=== PATIENT | male | born 1985 | race Caucasian/White ===

== ENCOUNTER 2018-08-20 10:55 | Emergency (ER) | payer OTHER ==
--- OUTSIDE RECORDS SUMMARY | 2018-08-20 11:05 | XMS REPORT | Continuity of Care Document ---
:1985 Author Organization Interface Problems Problem Status Onset Classification Date Comments Source Date Reported SUICIDAL Active 08/21/19 [facility] 18 [place] Discharge 10/03/19 10/06/2016 Diagnosis: [address] [place] Ureterolithiasis Discharge 10/03/19 10/06/2016 Diagnosis: Suicidal [place] ideation SUICIDAL IDEATION Active 10/02/19 [address] [place] SUICIDAL IDEATION Active 10/02/19 [address] [place] MEDIASTINAL ABSCESS Active 02/20/[address] MULTIPLE THORACIC Active 02/11/[address] OD Active 08/04/[address] Adult ADHD Active Problem 08/25/2017 [facility] Anxiety Active Problem 08/25/2017 [facility] Bipolar Active Problem 08/25/2017 [facility] Depression Active Problem 08/25/2017 [facility] Schizoaffective Active Problem 08/25/2017 [facility] Seizure disorder Active Problem 08/25/2017 [facility] Adult ADHD Active Problem 10/06/2016 [facility], [place] Anxiety Active Problem 10/06/2016 [facility], [place] Bipolar Active Problem 10/06/2016 [facility], [place] Depression Active Problem 10/06/2016 [facility], [place] Schizoaffective Active Problem 10/06/2016 [facility], [place] Seizure disorder Active Problem 10/06/2016 [facility], [place] Final: Poisoning by 08/17/2014 [facility] Psychodysleptics Medical [hallucinogens] Center Final: 08/17/2014 [facility] Schizoaffective Medical Disorder, [place] Unspecified Final: Cannabis 08/17/2014 [facility] Abuse, Unspecified Medical Use Center Final: Attention 08/17/2014 [facility] 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 Final: Poisoning by 08/17/2014 [facility] Amphetamines Medical Center Final: Suicide and 08/17/2014 [facility] Self-Inflicted Medical Poisoning by Center Tranquilizers and Other Psychotropic Agents Final: Need for 08/17/2014 [facility] Prophylactic Medical Vaccination and Center Inoculation Against Influenza Final: Epilepsy, 08/17/2014 [facility] Unspecified, Medical without Mention of Center Intractable Epilepsy Final: Cocaine 08/17/2014 [facility] Abuse, Unspecified Medical Use Center Final: Open Wound 08/17/2014 [facility] of Wrist, without Medical Mention of Center Complication DRUG ABUSE Active [facility] NEC-UNSPEC Medical Center ABSCESS OF Active [facility] MEDIASTINUM [facility] Center [facility] Medications Medication Details Route Status Patient Ordering Order Source Instructions Provider Date tramadol 50 mg=1 tab, Active hydrochloride 50 PO, Q6H, PRN 2016 [place] MG Oral Tablet pain, No [Ultram] driving while under the influence of this medication, X 3 day, # 12 tab, 0 Refill(s) Tamsulosin 0.4 mg=1 cap, Active hydrochloride 0.4 PO, Daily, # 2017 [place] [facility] Oral Capsule 30 cap, 0 [Flomax] Refill(s) Sodium Chloride 1,000 mL, Inactive 0.154 MEQ/ML Infuse Over: 1 2016 [facility] Injectable hr, Route: IV, Solution ONCE, Priority: STAT, Dosing Weight 79.545 kg, Start date: 10/03/16 2:16:00 [employer], Duration: 1 doses or times, Stop date: 10/03/16 2:16:00 [employer] Sodium Chloride 1,000 mL, Inactive 0.154 MEQ/ML Infuse Over: 2016 [facility] Injectable hr, Route: IV, Solution ONCE, Priority: STAT, Dosing Weight 79.545 kg, Start date: 10/02/16 23:22:00 [employer] SALES MANAGER, Duration: 1 doses or times, Stop date: 10/02/16 23:22:00 [employer] SALES MANAGER Motrin 600 mg, 1.5 Inactive tab, Route: 2016 [place] PO, Drug form: TAB, ONCE, Dosing Weight 79.545, kg, Priority: STAT, Start date: 10/02/16 22:09:00 [employer] SALES MANAGER, Stop date: 10/02/16 22:09:00 CSTNotes: (Same as: Motrin) "Do Not Crush" Give with food. tramadol 50 mg=1 tab, Active [place] hydrochloride 50 PO, Q6H, PRN 2015 Medical MG Oral Tablet Pain, X 10 Center day, # 40 tab, 0 Refill(s) doxycycline 100 mg=1 tab, Active [place] hyclate 100 mg PO, Q12H, X 28 2014 Medical oral tablet day, # 56 tab, Center 0 Refill(s) thiamine 100 mg 100 mg=1 tab, Active [facility] oral tablet PO, Daily, X 2014 Medical 30 day, # 30 Center tab, 0 Refill(s) senna 8.6 mg oral 8.6 mg=1 tab, Active [place] tablet PO, Daily, X 2015 Medical 10 day, # 10 Center tab, 0 Refill(s) Multiple Vitamins 1 tab, PO, Active [facility] oral tablet Daily, # 30 2015 Medical tab, 0 Center Refill(s) Folic Acid 1 MG 1 mg=1 tab, Active [facility] Oral Tablet PO, Daily, # 2015 Medical 30 tab, 0 Center Refill(s) docusate sodium 100 mg=1 cap, Active [place] 100 mg oral PO, Daily, # 2015 Medical capsule 30 cap, 0 Center Refill(s) clonazePAM 0.5 mg 0.5 mg=1 tab, Active [place] oral tablet PO, Q12H, PRN 2015 Medical Anxiety, # 14 Center tab, 0 Refill(s) Clonazepam 0.5 mg, 1 tab, No Longer [place] Route: PO, Active 2014 Medical Drug form: [place] TAB, Q12H, Dosing Weight 74.7, kg, PRN Anxiety, Start date: 03/09/15 17:29:00, Stop date: 04/08/15 17:28:00Notes: (Same As: KlonoPIN) Clonazepam 0.5 mg, 1 tab, No Longer [place] Route: PO, Active 2014 Medical Drug form: Center TAB, Q12H, Dosing Weight 74.7, kg, Start date: 03/03/15 9:00:00, Stop date: 04/01/15 21:00:00Notes: (Same As: KlonoPIN) Ibuprofen 600 mg, 3 tab, No Longer [place] Route: PO, Active 2014 Medical Drug form: Center TAB, Q6H, Dosing Weight 75, kg, PRN Pain Score 4-6, Start date: 02/26/15 12:10:00, Duration: 30 day, Stop date: 03/28/15 12:09:00Notes: (Same as: Advil) Give with food. KlonoPIN 2 mg, 4 tab, Inactive [place] Route: PO, 2014 Medical Drug form: [place] TAB, ONCE, Start date: 02/21/15 22:17:00, Stop date: 02/21/15 22:17:00Notes: (Same As: KlonoPIN) Acetaminophen 325 1 tab, Route: No Longer [facility] MG / Hydrocodone PO, Drug Form: Active 2014 Medical Bitartrate 10 MG TAB, Dosing Center Oral Tablet [[place] Weight 74.7, 10/325] kg, Q6H, PRN Pain Score 7-10, Start date: 02/21/15 11:01:00, Stop date: 03/23/15 11:00:00Notes: Do not exceed 4gm/day of acetaminophen. (Same as: [place] 325/10) Bisacodyl 10 mg, 1 supp, No Longer [facility] Route: [place], Active 2014 Medical Drug form: Center SUPP, Daily, Dosing Weight 74.7, kg, PRN Constipation, Start date: 02/21/15 11:01:00, Duration: 30 day, Stop date: 03/23/15 11:00:00Notes: (Same As: Dulcolax, Bisco-Lax) Thiamine 100 mg, 1 tab, No Longer [facility] Route: PO, Active 2014 Medical Drug form: Center TAB, Daily, Dosing Weight 74.7, kg, Start date: 02/21/15 9:00:00, Duration: 30 day, Stop date: 03/22/15 9:00:00Notes: (Same As: Vitamin B1) senna 8.6 mg oral 8.6 mg, 1 tab, No Longer [facility] tablet Route: PO, Active 2014 Medical Drug Form: Center TAB, Dosing Weight 74.7, kg, Daily, Start date: 02/21/15 9:00:00, Duration: 30 day, Stop date: 03/22/15 9:00:00Notes: (Same as: Senokot) multivitamin 1 tab, Route: No Longer [place] PO, Drug Form: Active 2014 Medical TAB, Dosing Center Weight 74.7, kg, Daily, Start date: 02/21/15 9:00:00, Duration: 30 day, Stop date: 03/22/15 9:00:00Notes: (Same as:Thera) Folic Acid 1 mg, 1 tab, No Longer [place] Route: PO, Active 2014 Medical Drug form: Center TAB, Daily, Dosing Weight 74.7, kg, Start date: 02/21/15 9:00:00, Duration: 30 day, Stop date: 03/22/15 9:00:00Notes: (Same as: Folvite) Clonazepam 1 mg, 2 tab, No Longer [facility] Route: PO, Active 2014 Medical Drug form: Center TAB, Q8H, Dosing Weight 74.7, kg, Start date: 02/21/15 9:00:00, Stop date: 03/22/15 21:00:00Notes: (Same As: KlonoPIN) Trazodone 100 mg, 1 tab, No Longer [facility] Hydrochloride 100 Route: PO, Active 2014 Medical MG Oral Tablet Drug form: Center TAB, Bedtime, Dosing Weight 74.7, kg, Start date: 02/20/15 21:00:00, Duration: 30 day, Stop date: 03/21/15 21:00:00Notes: (Same As: Desyrel) Cefazolin 2 gm, Route: No Longer [place] IVPB, ABXQ8H, Active 2014 Medical Dosing Weight Center 74.7, kg, Start date: 02/20/15 18:00:00, Duration: 30 day, Stop date: 03/22/15 5:00:00Notes: (Same As: Ancef Kefzol) Cefazolin FOR IV SET ONLY MEDICATION WASTE Product Size: 1000 mg Product Wasted: ___ mg acetaminophen 325 650 mg, 2 tab, No Longer [place] mg oral tablet Route: PO, Active 2014 Medical Drug form: Center TAB, Q6H, Dosing Weight 74.7, kg, PRN For Temp > 101 F, Start date: 02/20/15 17:19:00, Duration: 30 day, Stop date: 03/22/15 17:18:00Notes: (Same as: Tylenol) Acetaminophen 325 1 tab, Route: No Longer [place] MG / Hydrocodone PO, Drug Form: Active 2014 Medical Bitartrate 10 MG TAB, Dosing Center Oral Tablet [[place] Weight 74.7, 10/325] kg, Q4H, PRN Pain Score 1-3, Start date: 02/20/15 17:19:00, Duration: 30 day, Stop date: 03/22/15 17:18:00Notes: (Same as: [place] 325/10) Docusate 100 mg, 1 cap, No Longer [place] Route: PO, Active 2014 Medical Drug form: [place] CAP, Q12H, Dosing Weight 74.7, kg, Start date: 02/20/15 17:00:00, Stop date: 03/22/15 9:00:00Notes: (Same as: Colace) Ibuprofen 600 mg, 1 tab, Inactive [place] Route: PO, 2014 Medical Drug form: Center TAB, Q6H, Dosing Weight 74.7, kg, PRN Pain Score 1-3, Priority: NOW, Start date: 02/20/15 15:40:00, Duration: 30 day, Stop date: 03/22/15 15:39:00Notes: (Same as: Motrin) "Do Not Crush" Take with food. Ondansetron 4 mg, 2 mL, No Longer [place] Route: IVP, Active 2014 Medical Drug form: Center INJ, Q8H, Dosing Weight 74.7, kg, PRN Nausea & Vomiting, Start date: 02/20/15 14:39:00, Duration: 30 day, Stop date: 03/22/15 14:38:00Notes: (Same as: Zofran) MEDICATION WASTE Product Size: 4 mg Product Wasted: ___ mg Bisacodyl 10 mg, 2 tab, No Longer [place] Route: [place], Active 2014 Medical Drug form: [place] ECTAB, PRN, Dosing Weight 74.7, kg, PRN Constipation, Start date: 02/20/15 14:39:00, Duration: 30 day, Stop date: 03/22/15 14:38:00Notes: (Same As: Dulcolax, Correctol) (Do Not Crush) Milk of Magnesia 30 mL, Route: No Longer [facility] PO, Drug Form: Active 2015 Medical SUSP, Dosing Center Weight 74.7, kg, Daily, PRN Constipation, Start date: 02/20/15 14:39:00, Duration: 30 day, Stop date: 03/22/15 14:38:00Notes: (Same as: Milk of Magnesia, MOM) thiamine 100 mg 100 mg=1 tab, On Hold [facility] oral tablet PO, Daily, 0 2014 Medical Refill(s) Center senna 8.6 mg oral 8.6 mg=1 tab, On Hold [facility] tablet PO, Daily, 0 2014 Medical Refill(s) Center multivitamin 1 tab, PO, On Hold [facility] Daily, 0 2014 Medical Refill(s) Center Folic Acid 1 MG 1 mg=1 tab, On Hold [facility] Oral Tablet PO, Daily, 0 2014 Medical Refill(s) Center docusate sodium 100 mg=1 cap, On Hold [facility] 100 mg oral PO, Daily, 0 2014 Medical capsule Refill(s) Center ceFAZolin 1 g/50 2 fe=253 mL, On Hold [facility] mL intravenous IVPB, ABXQ8H, 2015 Medical solution 0 Refill(s) Center bisacodyl 10 mg 10 mg=1 supp, On Hold [facility] rectal suppository [place], Daily, PRN 2015 Medical Constipation, Center 0 Refill(s) acetaminophen 325 650 mg=2 tab, On Hold [facility] mg oral tablet PO, Q6H, PRN 2015 Medical For Temp > 101 Center F, 0 Refill(s) Acetaminophen 325 2 tab, PO, On Hold [facility] MG / Hydrocodone Q6H, PRN Pain 2015 Medical Bitartrate 10 MG Score 7-10, 0 Center Oral Tablet [[place] Refill(s) 10/325] clonazePAM 2 mg 2 mg=1 tab, On Hold [place] oral tablet PO, TID, 0 2014 Medical Refill(s) Center Trazodone 100 mg=1 tab, On Hold [place] Hydrochloride 100 PO, Bedtime, 0 2014 Medical MG Oral Tablet Refill(s) Center Acetaminophen 325 2 tab, Route: No Longer [facility] MG / Hydrocodone PO, Drug Form: Active 2014 Medical Bitartrate 10 MG TAB, Dosing Center Oral Tablet [[place] Weight 74.7, 10/325] kg, Q6H, PRN Pain Score 7-10, Start date: 02/19/15 18:24:00, Duration: 30 day, Stop date: 03/21/15 18:23:00Notes: Do not exceed 4gm/day of acetaminophen. (Same as: [place] 325/10) Dilaudid 0.5 mg, 0.25 Inactive [place] mL, Route: 2014 Medical IVP, Drug Center form: INJ, ONCE, Dosing Weight 74.7, kg, Priority: STAT, Start date: 02/19/15 18:20:00, Stop date: 02/19/15 18:20:00Notes: Same as: Dilaudid Acetaminophen 325 1 tab, Route: Inactive [facility] MG / Hydrocodone PO, Drug Form: 2014 Medical Bitartrate 5 MG TAB, Dosing Center Oral Tablet [[place] Weight 74.7, 5/325] kg, Q6H, PRN Pain Score 1-3, Start date: 02/19/15 17:54:00, Duration: 30 day, Stop date: 03/21/15 17:53:00Notes: (Same as: [place] 325/5) Do not exceed 4gm/day of acetaminophen. Acetaminophen 325 1 tab, Route: No Longer [facility] MG / Hydrocodone PO, Drug Form: Active 2014 Medical Bitartrate 7.5 MG TAB, Dosing Center Oral Tablet [[place] Weight 74.7, 7.5/325] kg, Q4H, PRN Pain Score 4-6, Start date: 02/17/15 10:30:00, Duration: 30 day, Stop date: 03/19/15 10:29:00Notes: Same as [place] 325-7.5mg Do not exceed 4gm/day of acetaminophen. Dilaudid 0.5 mg, 0.25 No Longer [place] mL, Route: IV, Active 2014 Medical Drug form: [place] INJ, Q3H, Dosing Weight 74.7, kg, PRN Pain Score 7-10, Start date: 02/17/15 10:25:00, Duration: 30 day, Stop date: 03/19/15 10:24:00Notes: Same as: Dilaudid Simethicone 80 mg, 1 tab, No Longer [place] Route: PO, Active 2014 Medical Drug form: [place] CHEWTAB, Q6H, Dosing Weight 74.7, kg, Start date: 02/16/15 12:00:00, Duration: 30 day, Stop date: 03/18/15 6:00:00Notes: (Same as: Leanalicon) Dilaudid 1 mg, 0.5 mL, Inactive [place] Route: IVP, 2014 Medical Drug form: [place] INJ, ONCE, Dosing Weight 74.7, kg, Priority: STAT, Start date: 02/15/15 18:42:00, Stop date: 02/15/15 18:42:00Notes: Same as: Dilaudid Hydromorphone 15 mg, 30 mL, No Longer [place] Route: IV, Active 2014 [facility] Loading Dose: 0.4mg, [employer] OFFICER Dose: 0.2 mg, [employer] OFFICER Lockout: 10 minutes, Continuous Basal Rate: 0 mg, 4 Hour Limit (In MG): 6, Drug Form: INJ, Continuous, Start date: 02/15/15 18:30:00, Duration: 30 day, Stop date: 03/17/15 18:...Notes: (Same as: Dilaudid) conc=0.5 mg/ml Hydromorphone [employer]ER Dose: ;Delay: ;Basal: Naloxone 0.04 mg, 0.1 No Longer [place] mL, Route: Active 2014 [facility] IVP, Drug Center form: INJ, Q2MIN, Dosing Weight 74.7, kg, PRN Narcotic Reversal, Start date: 02/15/15 18:24:00, Duration: 30 day, Stop date: 03/17/15 18:23:00Notes: Same as Narcan Saline Flush 0.9% 10 mL, Route: No Longer [facility] IVP, Drug Active 2014 Medical Form: INJ, Center Dosing Weight 74.7, kg, Q8H, Start date: 02/15/15 16:00:00, Duration: 30 day, Stop date: 03/17/15 8:00:00Notes: (Same as: BD Posiflush) Cefazolin 2 gm, 100 mL, No Longer [facility] Route: IVPB, Active 2014 Medical Drug form: [place] INJ, ABXQ8H, Dosing Weight 74.7, kg, Start date: 02/15/15 13:00:00, Duration: 30 day, Stop date: 03/17/15 5:00:00Notes: Same as: Ancef lidocaine 1% 5 mL, Route: Inactive [facility] INTRADERM, 2014 Medical Drug Form: [place] INJ, Dosing Weight 74.7, kg, ONCALL, Start date: 02/15/15 10:00:00, Duration: 1 day, Stop date: 02/16/15 9:59:00Notes: (Same as: Xylocaine) Sodium Chloride 5 mL, Route: No Longer [facility] 0.154 MEQ/ML INTRADERM, Active 2014 Medical Injectable Drug Form: [place] Solution INJ, Dosing Weight 74.7, kg, ONCALL, Start date: 02/15/15 10:00:00, Duration: 1 day, Stop date: 02/16/15 9:59:00Notes: (Same as: BD Posiflush) Dilaudid 0.2 mg, 0.1 No Longer [facility] mL, Route: IV, Active 2014 Medical Drug form: [place] INJ, Q4H, Dosing Weight 74.7, kg, PRN Pain Score 7-10, Start date: 02/14/15 15:09:00, Duration: 30 day, Stop date: 03/16/15 15:08:00Notes: Same as: Dilaudid lidocaine 1% 5 mL, Route: No Longer [facility] INTRADERM, Active 2014 Medical Drug Form: Center INJ, Dosing Weight 74.7, kg, ONCALL, Start date: 02/14/15 15:00:00, Duration: 30 day, Stop date: 03/16/15 14:59:00Notes: (Same as: Xylocaine) Trazodone 100 mg, 1 tab, No Longer [place] Hydrochloride 100 Route: PO, Active 2014 Medical MG Oral Tablet Drug form: Center TAB, Bedtime, Dosing Weight 74.7, kg, Start date: 02/13/15 21:00:00, Duration: 30 day, Stop date: 03/14/15 21:00:00Notes: (Same As: Desyrel) Vancomycin 1.5 gm, 250 No Longer [place] mL, Route: Active 2014 Medical IVPB, Drug Center form: INJ, ABXQ8H, Dosing Weight 74.7, kg, Start date: 02/13/15 9:00:00, Duration: 30 day, Stop date: 03/15/15 1:00:00Notes: TIME CRITICAL MEDICATION Same as: Vancocin-NS (premixed) Infusion rate 2000 mg: infuse over 2.5 hours Ondansetron 4 mg, 2 mL, Inactive [facility] Route: IVP, 2014 Medical Drug form: Center INJ, ONCE, Dosing Weight 74.7, kg, PRN Nausea & Vomiting, Start date: 02/13/15 8:48:00Notes: (Same as: Zofran) MEDICATION WASTE Product Size: 4 mg Product Wasted: __0_ mg Flumazenil 0.2 mg, 2 mL, Inactive [facility] Route: IVP, 2014 Medical Drug form: [place] INJ, PRN, Dosing Weight 74.7, kg, PRN Benzodiazepine Reversal, Initial dose, Start date: 02/13/15 8:48:00, Stop date: 02/14/15 9:00:00Notes: (Same as: Romazicon) Naloxone 0.04 mg, 0.1 Inactive [facility] mL, Route: 2014 Medical IVP, Drug Center form: INJ, Q2MIN, Dosing Weight 74.7, kg, PRN Narcotic Reversal, Start date: 02/13/15 8:48:00, Duration: 8 doses or times, Stop date: 02/14/15 9:00:00Notes: Same as Narcan Midazolam 1 mg, 1 mL, Inactive [facility] Route: IVP, 2014 Medical Drug form: Center INJ, Q5Min, Dosing Weight 74.7, kg, PRN Anxiety, Start date: 02/13/15 8:48:00, Duration: 2 doses or times, Stop date: 02/14/15 9:00:00Notes: (Same as: Versed) MEDICATION WASTE Product Size: 2 mg Product Wasted: ___ mg Vancomycin 1.5 gm, 250 No Longer [place] mL, Route: Active 2014 Medical IVPB, Drug Center form: INJ, [id number], Dosing Weight 74.7, kg, Start date: 02/12/15 20:00:00, Duration: 30 day, Stop date: 03/14/15 8:00:00Notes: TIME CRITICAL MEDICATION Same as: Vancocin-NS (premixed) Infusion rate 2000 mg: infuse over 2.5 hours Folic Acid 1 mg, 1 tab, No Longer [facility] Route: PO, Active 2014 Medical Drug form: Center TAB, Daily, Dosing Weight 74.7, kg, Start date: 02/12/15 9:00:00, Duration: 30 day, Stop date: 03/13/15 9:00:00Notes: (Same as: Folvite) Thiamine 100 mg, 1 tab, No Longer [place] Route: PO, Active 2014 Medical Drug form: Center TAB, Daily, Dosing Weight 74.7, kg, Start date: 02/12/15 9:00:00, Duration: 30 day, Stop date: 03/13/15 9:00:00Notes: (Same As: Vitamin B1) multivitamin 1 tab, Route: No Longer [facility] PO, Drug Form: Active 2014 Medical TAB, Dosing Center Weight 74.7, kg, Daily, Start date: 02/12/15 9:00:00, Duration: 30 day, Stop date: 03/13/15 9:00:00Notes: (Same as:Thera) Take with food. Acetaminophen 650 mg, 2 tab, No Longer [facility] Route: PO, Active 2014 Medical Drug form: Center TAB, Q6H, Dosing Weight 74.7, kg, PRN For Temp > 101 F, Start date: 02/11/15 19:44:00, Duration: 30 day, Stop date: 03/13/15 19:43:00Notes: Do not exceed 4 gm/day. (Same as: Tylenol) sennosides, [facility] 8.6 mg, 1 tab, No Longer [place] Route: PO, Active 2014 Medical Drug Form: Center TAB, Dosing Weight 74.7, kg, Daily, Start date: 02/11/15 17:45:00, Duration: 30 day, Stop date: 03/13/15 9:00:00Notes: (Same as: Senokot) Docusate 100 mg, 1 cap, No Longer [facility] Route: PO, Active 2014 Medical Drug form: Center CAP, Daily, Dosing Weight 74.7, kg, Start date: 02/11/15 17:45:00, Duration: 30 day, Stop date: 03/13/15 9:00:00Notes: (Same as: Colace) (Do Not Crush) Bisacodyl 10 mg, 1 supp, No Longer [facility] Route: [place], Active 2014 Medical Drug form: Center SUPP, Daily, Dosing Weight 74.7, kg, PRN Constipation, Start date: 02/11/15 17:24:00, Duration: 30 day, Stop date: 03/13/15 17:23:00Notes: (Same As: Dulcolax, Bisco-Lax) heparin 5,000 unit, 1 No Longer [place] mL, Route: Active 2014 Medical SUB-Q, Drug Center form: INJ, Q8H, Dosing Weight 74.7, kg, Start date: 02/11/15 16:00:00, Duration: 30 day, Stop date: 03/13/15 8:00:00Notes: porcine heparin Acetaminophen 325 2 tab, Route: No Longer [facility] MG / Hydrocodone PO, Drug Form: Active 2014 Medical Bitartrate 5 MG TAB, Dosing Center Oral Tablet [[place] Weight 74.7, 5/325] kg, Q4H, PRN Pain Score 4-6, Start date: 02/11/15 13:39:00, Duration: 30 day, Stop date: 03/13/15 13:38:00Notes: (Same as: [place] 325/5) Do not exceed 4gm/day of acetaminophen. Metoprolol 2.5 mg, 2.5 No Longer [place] mL, Route: Active 2014 Medical IVP, Drug Center form: INJ, Q6H, Dosing Weight 74.7, kg, PRN Hypertension, Start date: 02/11/15 9:38:00, Duration: 30 day, Stop date: 03/13/15 9:37:00Notes: (Same as: Lopressor) Push over 2 minutes Calcium Gluconate 2 gm, 20 mL, No Longer [place] Route: IVPB, Active 2014 Medical PRN, Dosing Center Weight 74.7, kg, PRN Abnormal Lab Result, For NON-ICU Patients Only., Start date: 02/11/15 9:35:00, Duration: 30 day, Stop date: 03/13/15 9:34:00 Magnesium Oxide 800 mg, 2 tab, No Longer [place] Route: PO, Active 2014 Medical Drug form: Center TAB, PRN, Dosing Weight 74.7, kg, PRN Abnormal Lab Result, For NON-ICU Patients Only., Start date: 02/11/15 9:35:00, Duration: 30 day, Stop date: 03/13/15 9:34:00Notes: (Same as: Mag-Ox 400) Magnesium oxide [id number] elemental magnesium Dose=____mg magnesium oxide (___mg elemental magnesium) Magnesium Sulfate 2 gm, 50 mL, No Longer [place] Route: IVPB, Active 2014 Medical Drug form: Center INJ, PRN, Dosing Weight 74.7, kg, PRN Abnormal Lab Result, For NON-ICU Patients Only., Start date: 02/11/15 9:35:00, Duration: 30 day, Stop date: 03/13/15 9:34:00 sodium phosphate + 30 mmol, 10 No Longer [place] Sodium Chloride mL, Route: Active 2014 Medical 0.9% IV 250 mL IVPB, PRN, Center Dosing Weight 74.7, kg, PRN Abnormal Lab Result, For NON-ICU Patients Only., Start date: 02/11/15 9:35:00, Duration: 30 day, Stop date: 03/13/15 9:34:00 potassium chloride 20 mEq, 1 tab, No Longer [place] Route: PO, Active 2014 Medical Drug form: Center ERTAB, PRN, Dosing Weight 74.7, kg, PRN Abnormal Lab Result, For NON-ICU Patients Only, Start date: 02/11/15 9:35:00, Duration: 30 day, Stop date: 03/13/15 9:34:00Notes: (Same as: K-Dur 20) "Do Not Crush" With food and full glass of water potassium 2 pkt, Route: No Longer [place] phosphate-sodium PO, Drug Form: Active 2014 Medical phosphate 250 PDR/REC, Center mg-278 mg-164 mg Dosing Weight oral powder 74.7, kg, PRN, PRN Abnormal Lab Result, For NON-ICU Patients Only, Start date: 02/11/15 9:35:00, Duration: 30 day, Stop date: 03/13/15 9:34:00Notes: (Same as: Neutra-Phos) Each 1.25 gm pkt has 250mg phosphorous. Mix w/2.5oz water and stir. potassium 30 mmol, 10 No Longer [place] phosphate + Sodium mL, Route: Active 2014 Medical Chloride 0.9% IV IVPB, PRN, Center 250 mL Dosing Weight 74.7, kg, PRN Abnormal Lab Result, For NON-ICU Patients Only., Start date: 02/11/15 9:35:00, Duration: 30 day, Stop date: 03/13/15 9:34:00Notes: (Same as: K Phosphate.) 1 mMol phoshate has 1.47 mEq potassium Infuse over 4 hours Hydromorphone 0.2 mg, Route: Inactive [place] IV, ONCE, 2014 Medical Dosing Weight Center 74.7, kg, Start date: 02/10/15 19:31:00, Stop date: 02/10/15 19:31:00 Hydromorphone 15 mg, 30 mL, No Longer [place] Route: IV, Active 2014 Medical Initial Center Loading Dose: 0.4mg, [employer]ER Dose: 0.2 mg, [employer]ER Lockout: 10 minutes, Continuous Basal Rate: 0 mg, 4 Hour Limit (In MG): 6, Drug Form: INJ, Continuous, Start date: 02/10/15 19:00:00, Duration: 30 day, Stop date: 03/12/15 18:...Notes: (Same as: Dilaudid) conc=0.5 mg/ml Hydromorphone [employer] Dose: ;Delay: ;Basal: Naloxone 0.04 mg, 0.1 No Longer [place] mL, Route: Active 2014 Medical IVP, Drug Center form: INJ, Q2MIN, Dosing Weight 74.7, kg, PRN Narcotic Reversal, Start date: 02/10/15 18:55:00, Duration: 30 day, Stop date: 03/12/15 18:54:00Notes: Same as Narcan Sodium Chloride 1,000 mL, No Longer [facility] 0.154 MEQ/ML Rate: 100 Active 2014 Medical Injectable ml/hr, Infuse Center Solution over: 10.1 hr, Route: IV, Dosing Weight 74.7 kg, Total Volume: 1,011.2, Start date: 02/10/15 16:16:00, Duration: 3 day, Stop date: 02/13/15 16:15:00 Restoril 30 mg, 2 cap, No Longer [facility] Route: PO, Active 2014 Medical Drug form: Center CAP, Bedtime, Dosing Weight 74.7, kg, PRN as needed for sleep, Start date: 02/10/15 16:02:00, Duration: 30 day, Stop date: 03/12/15 16:01:00Notes: (Same As: Restoril) Merrem 500 mg, Route: No Longer [facility] IVPB, Drug Active 2014 Medical form: PDR/INJ, Center [id number], Dosing Weight 74.7, kg, CrCL >=50ml/min, Extended infusion, infuse over 3 hours, Start date: 02/10/15 16:00:00, Duration: 30 day, Stop date: 03/12/15 10:00:00Notes: Same as Merrem MEDICATION WASTE Product Size: 500 mg Product Wasted: ___ mg Vancomycin 1.5 gm, 250 No Longer [facility] mL, Route: Active 2014 Medical IVPB, Drug Center form: INJ, [id number], Dosing Weight 74.7, kg, Start date: 02/10/15 16:00:00, Duration: 30 day, Stop date: 03/12/15 8:30:00Notes: TIME CRITICAL MEDICATION Same as: Vancocin-NS (premixed) Infusion rate 2001 mg: infuse over 2.5 hours Ativan 1 mg, Route: Inactive [place] PO, TID, 2014 Medical Dosing Weight Center 74.7, kg, PRN as needed for anxiety, Start date: 02/10/15 15:45:00, Duration: 30 day, Stop date: 03/12/15 15:44:00 Trilafon 8 mg oral 8 mg=1 tab, No Longer [place] tablet PO, QID, 0 Active 2014 Medical Refill(s) Center Trihexyphenidyl 5 mg=1 tab, No Longer [place] Hydrochloride 5 MG PO, BID, 0 Active 2014 Medical Oral Tablet Refill(s) Center gabapentin 300 MG 300 mg=1 cap, No Longer [place] Oral Capsule PO, TID, # 90 Active 2014 Medical cap, 0 Center Refill(s) Temazepam 30 MG 30 mg=1 cap, No Longer [place] Oral Capsule PO, Bedtime, Active 2014 Medical [Restoril] PRN Sleep, 0 Center Refill(s) Carbamazepine 200 200 mg=1 tab, No Longer [place] MG Oral Tablet PO, BID, 0 Active 2014 Medical [Tegretol] Refill(s) Center Clonazepam 2 MG 2 mg=1 tab, No Longer [place] Oral Tablet PO, TID, # 90 Active 2014 Medical [Klonopin] tab, 0 Center Refill(s) Amphetamine 30 mg=1 tab, No Longer [place] aspartate 7.5 MG / PO, TID, 0 Active 2014 Medical Amphetamine Refill(s) Center Sulfate 7.5 MG / Dextroamphetamine saccharate 7.5 MG / Dextroamphetamine Sulfate 7.5 MG Oral Tablet [Adderall] Klonopin 2 mg, 1 tab, No Longer [place] Route: PO, Active 2014 Medical Drug form: Center TAB, TID, Dosing Weight 74.7, kg, Start date: 02/09/15 22:00:00, Duration: 30 day, Stop date: 03/11/15 16:00:00Notes: (Same As: KlonoPIN) azelaic acid 5 MG 1 tab, PO, Active [place] / Cupric oxide 1.5 Daily, # 30 2014 Medical MG / Folic Acid tab, 0 Center 0.5 MG / Refill(s) Niacinamide 600 MG / pyridoxine 5 MG / Zinc Oxide 10 MG Oral Tablet 24 HR Nicotine =1 patch, TOP, Active [place] 0.875 MG/HR Q24H, # 7 2014 Medical Transdermal Patch patch, 0 Center Refill(s) thiamine 100 mg 100 mg=1 tab, Active [place] oral tablet PO, Daily, # 2014 Medical 30 tab, 0 Center Refill(s) remove patch 1 patch, No Longer [place] Route: TOP, Active 2013 Medical Drug form: Center ERFILM, Q24H, Start date: 08/09/14 13:00:00, Duration: 30 day, Stop date: 09/07/14 13:00:00Notes: Remove old patch before application of new patch. Habitrol 21 mg, 1 No Longer [place] patch, Route: Active 2013 Medical TOP, Drug Center form: ERFILM, Q24H, Dosing Weight 82, kg, Start date: 08/08/14 13:00:00, Duration: 30 day, Stop date: 09/06/14 13:00:00Notes: (Same as: Habitrol) Fluzone 0.5 ml, Route: Inactive [place] Quadrivalent IM, Drug Form: 2013 Medical SUSP, Daily, Center Start date: 08/07/14 9:00:00, Duration: 1 doses or times, Stop date: 08/07/14 9:00:00Notes: (Same as: Fluzone Quadrivalent) Influenza Virus 0.5 ml, Route: Inactive [place] Vaccine, IM, Drug Form: 2013 Medical Inactivated SUSP, Daily, [place] [id number] Start date: (H3N2)-like virus 08/06/14 ([id number] 9:00:00, 7 [employer] [employer] [id number]) Duration: 1 strain / Influenza doses or Virus Vaccine, times, Stop Inactivated date: 08/06/14 [id number] 9:00:00Notes: , [id number] (H1N1) (Same as: strain / Influenza Fluzone Virus Vaccine, Quadrivalent) Inactivated, [id number] remove patch 1 patch, No Longer [place] Route: TOP, Active 2013 Medical Drug form: Center ERFILM, Daily, Start date: 08/05/14 17:00:00, Duration: 30 day, Stop date: 09/03/14 17:00:00Notes: Remove old patch before application of new patch. Nicotine 21 mg, 1 No Longer [place] patch, Route: Active 2013 Medical [facility], Drug Center form: ERFILM, Daily, Dosing Weight 82, kg, Start date: 08/05/14 10:14:00, Duration: 30 day, Stop date: 09/04/14 9:00:00Notes: (Same as: Habitrol) "Remove old patch before application of new patch" Ativan 2 mg, 1 mL, Inactive [place] Route: IV, 2013 Medical Drug form: [place] INJ, ONCE, Dosing Weight 82, kg, Start date: 08/05/14 9:06:00, Stop date: 08/05/14 9:06:00Notes: (Same as: Ativan) Ascorbic Acid / 1 tab, Route: No Longer [place] Biotin / Folic PO, Drug Form: Active 2013 Medical Acid / Niacin / TAB, Dosing Center pantothenate / Weight 82, kg, pyridoxine / Daily, Start Riboflavin / date: 08/05/14 Thiamine / Vitamin 9:00:00, B 12 Duration: 30 day, Stop date: 09/03/14 9:00:00 Lovenox 40 mg, 0.4 mL, No Longer [place] Route: SUB-Q, Active 2013 Medical Drug form: Center INJ, [id number], Dosing Weight 82, kg, Start date: 08/05/14 9:00:00, Duration: 30 day, Stop date: 09/03/14 9:00:00Notes: (Same as: Lovenox) Haldol 2 mg, 0.4 mL, No Longer [place] Route: IV, Active 2013 Medical Drug form: Center INJ, Q6H, Dosing Weight 82, kg, PRN Agitation, Start date: 08/04/14 23:20:00, Duration: 30 day, Stop date: 09/03/14 23:19:00Notes: (Same as: Haldol) Saline Flush 0.9% 10 ml, Route: No Longer [facility] MISC, Drug Active 2013 Medical Form: INJ, Center Dosing Weight 82, kg, Q12H, Start date: 08/04/14 21:00:00, Duration: 30 day, Stop date: 09/03/14 9:00:00Notes: (Same as: BD Posiflush) azelaic acid 5 MG 1 tab, Route: No Longer [facility] / Cupric oxide 1.5 PO, Drug Form: Active 2013 Medical MG / Folic Acid TAB, Dosing Center 0.5 MG / Weight 82, kg, Niacinamide 600 MG Daily, Start / pyridoxine 5 MG date: 08/04/14 / Zinc Oxide 10 MG 18:00:00, Oral Tablet Duration: 30 day, Stop date: 09/03/14 9:00:00Notes: (Same as:Thera-M, Theragran-M) Give with food. Thiamine 100 mg, 1 tab, No Longer [place] Route: PO, Active 2013 Medical Drug form: Center TAB, Daily, Dosing Weight 82, kg, Start date: 08/04/14 18:00:00, Duration: 30 day, Stop date: 09/03/14 9:00:00Notes: (Same As: Vitamin B1) Nicotine 21 mg, 1 No Longer [place] patch, Route: Active 2013 Medical TOP, Drug Center form: ERFILM, Daily, Dosing Weight 82, kg, Start date: 08/04/14 16:48:00, Duration: 30 day, Stop date: 09/02/14 17:00:00Notes: (Same as: Habitrol) "Remove old patch before application of new patch" Methadone 10 mg, 10 mL, No Longer [facility] Route: NG, Active 2013 Medical Drug form: Center SOLN, Q8H, Dosing Weight 82, kg, Start date: 08/04/14 16:00:00, Stop date: 09/03/14 10:00:00Notes: (Same as: Dolophine) heparin, porcine 5,000 unit, 1 Inactive [place] mL, Route: 2013 Medical SUB-Q, Drug Center form: INJ, Q8H, Dosing Weight 82, kg, Start date: 08/04/14 16:00:00, Duration: 30 day, Stop date: 09/03/14 8:00:00Notes: porcine heparin Ativan 2 mg, 1 mL, No Longer [place] Route: IV, Active 2013 Medical Drug form: Center INJ, Q4H, Dosing Weight 82, kg, PRN Withdrawal, Start date: 08/04/14 15:47:00, Stop date: 09/03/14 15:42:00Notes: (Same as: Ativan) Ativan 2 mg, Route: Inactive [place] IV, Q2H, 2013 Medical Dosing Weight Center 82, kg, PRN Withdrawal, Start date: 08/04/14 15:44:00, Duration: 30 day, Stop date: 09/03/14 15:43:00 Azithromycin 1,000 mg, Inactive [facility] Route: IV, 2013 Medical ONCE, Dosing Center Weight 82, kg, Start date: 08/04/14 15:36:00, Stop date: 08/04/14 15:36:00Notes: (Same As: Zithromax IV) Rocephin 250 mg, Route: Inactive [place] IV, Drug form: 2013 Medical PDR/INJ, ONCE, Center Dosing Weight 82, kg, Start date: 08/04/14 15:35:00, Stop date: 08/04/14 15:35:00Notes: (Same As: Rocephin) normal saline 0.9% 1,000 mL, No Longer [facility] IV 1,000 mL Rate: 75 Active 2013 Medical ml/hr, Infuse Center over: 13.3 hr, Route: IV, Dosing Weight 82 kg, Total Volume: 1,000, Start date: 08/04/14 15:30:00, Duration: 30 day, Stop date: 09/03/14 15:29:00 Saline Flush 0.9% 10 ml, Route: No Longer [place] MISC, Drug Active 2013 Medical Form: INJ, Center Dosing Weight 82, kg, PRN, PRN Line Flush, Start date: 08/04/14 12:06:00, Duration: 30 day, Stop date: 09/03/14 12:05:00Notes: (Same as: BD Posiflush) Permethrin 50 1 appl, Route: Inactive [place] MG/ML Topical TOP, ONCE, 2013 Medical Cream Drug form: Center CRM, Start date: 08/04/14 12:01:00, Stop date: 08/04/14 12:01:00Notes: (Same as: Elimite) Allergies, Adverse Reactions, Alerts Substance Category Reaction Severity Reaction Status Date Comments Source type Reported Immunizations Immunization Date Site Status Last Comments Source Given Updated influenza virus Buttock completed [facility] vaccine, 4 [facility] influenza virus Buttock completed [facility] vaccine, 4 [facility] influenza virus Not Given [facility] vaccine, 4 [facility] influenza virus Not Given [facility] vaccine, 4 [facility] Results Order Name Results Value Reference Date Interpretation Comments Source Range DRUG U Benzodia Negative Negative 08/22 SCREEN [place] *NA* (08/21/17 7:34 PM) DRUG U Cocaine Negative Negative 08/22 SCREEN [place] *NA* (08/21/17 7:34 PM) DRUG U Dania Scr Negative Negative 08/22 [place] *NA* (08/21/17 7:34 PM) DRUG U Amph Scr Positive Negative 08/22 [place] *ABN* (08/21/17 7:34 PM) DRUG U Opiate Scr Negative Negative 08/22 [place] *NA* (08/21/17 7:34 PM) DRUG U Cannab Scr Positive Negative 08/22 [place] *ABN* (08/21/17 7:34 PM) DRUG U Phencyc Negative Negative 08/22 SCREEN [place] *NA* (08/21/17 7:34 PM) DRUG UDS Note See Note 08/22 [place] (08/21/17 7:34 PM) CARDIAC Total CK 100 unit/L 12 - 191 08/22 ENZYMES [place] CARDIAC Troponin-I null 0.00 - 08/22 ENZYMES 0.40 /2017 [place] CARDIAC CK MB 1.1 ng/mL 0.5 - 3.6 08/22 ENZYMES [place] CARDIAC CK MB Index 1.1 0.0 - 2.5 08/22 ENZYMES [place] CHEM PANEL eGFR 128 08/22 Result Comment: The eGFR is calculated using the CKD-EPI formula. In most young, healthy individuals the eGFR will be >90 mL/ min/1.73m2. The eGFR declines with age. An eGFR of 60-89 may be normal in mL/min/1. some populations, particularly the elderly, for whom the CKD-EPI formula has not been extensively validated. Use of the eGFR is not recommended in the following populations: [address] Individuals with unstable creatinine concentrations, including patients and those with serious co-morbid conditions. Patients with extremes in muscle mass or diet. The data above are obtained from the National Kidney Disease Education Program (NKDEP) which additionally recommends that when the eGFR is used in patients with extremes of body mass index for purposes of drug dosing, the eGFR should be multiplied by the estimated BMI. CHEM PANEL B/C Ratio 15 6 - 25 08/22 [place] CHEM PANEL AGAP 11.5 meq/L 10.0 - 08/22 MH 20.0 [place] CHEM PANEL AST 14 unit/L 0 - 37 08/22 [place] CHEM PANEL ALT 26 unit/L 0 - 65 08/22 [place] CHEM PANEL Albumin Lvl 3.6 g/dL 3.5 - 5.0 08/22 [place] CHEM PANEL Calcium Lvl 8.6 mg/dL 8.5 - 10.5 08/22 [place] CHEM PANEL CO2 28 meq/L 24 - 32 08/22 [place] CHEM PANEL Chloride Lvl 106 meq/L 95 - 109 08/22 [place] CHEM PANEL Potassium 3.5 meq/L 3.5 - 5.1 08/22 Lvl [place] CHEM PANEL Sodium Lvl 142 meq/L 135 - 145 08/22 [place] CHEM PANEL Creatinine 0.67 mg/dL 0.50 - 08/22 Lvl 1.40 /2017 [place] CHEM PANEL BUN 10 mg/dL 7 - 22 08/22 [place] CHEM PANEL Glucose Lvl 81 mg/dL 70 - 99 08/22 [place] CHEM PANEL A/G Ratio 1.0 0.7 - 1.6 08/22 [place] CHEM PANEL Globulin 3.5 g/dL 2.7 - 4.2 08/22 [place] CHEM PANEL Bili Total 0.2 mg/dL 0.2 - 1.3 08/22 [place] CHEM PANEL Total 7.1 g/dL 6.4 - 8.4 08/22 [place] CHEM PANEL Alk Phos 80 unit/L 39 - 136 08/22 [place] HEMATOLOGY RDW 12.3 % 11.5 - 08/22 MH 14.5 [place] HEMATOLOGY Platelet 236 K/CMM 133 - 450 08/22 [place] HEMATOLOGY MPV 7.9 fL 7.4 - 10.4 08/22 [place] HEMATOLOGY MCHC 34.7 g/dL 32.0 - 08/22 MH 36.0 [place] HEMATOLOGY MCH 30.8 pg 27.0 - 08/22 MH 31.0 [place] HEMATOLOGY MCV 88.9 fL 80.0 - 08/22 MH 94.0 [place] HEMATOLOGY Hct 44.5 % 42.0 - 08/22 MH 54.0 [place] HEMATOLOGY WBC 5.7 K/CMM 3.7 - 10.4 08/22 [place] HEMATOLOGY Hgb 15.4 g/dL 14.0 - 08/22 MH 18.0 [place] HEMATOLOGY RBC 5.01 M/CMM 4.70 - 08/22 MH 6.10 [place] HEMATOLOGY Segs 59.1 % 45.0 - 08/22 MH 75.0 [place] HEMATOLOGY Lymphocytes 30.0 % 20.0 - 08/22 MH 40.0 [place] HEMATOLOGY Eosinophils 2.1 % 0.0 - 4.0 08/22 [place] HEMATOLOGY Monocytes 8.2 % 2.0 - 12.0 08/22 [place] HEMATOLOGY Basophils 0.6 % 0.0 - 1.0 08/22 [place] HEMATOLOGY Segs-Bands # 3.4 K/CMM 1.5 - 8.1 08/22 [place] HEMATOLOGY Monocytes # 0.5 K/CMM 0.0 - 0.8 08/22 [place] HEMATOLOGY Eosinophils 0.1 K/CMM 0.0 - 0.5 08/22 [place] HEMATOLOGY Lymphocytes 1.7 K/CMM 1.0 - 5.5 08/22 [place] TOXICOLOGY Ethanol Lvl null 08/22 [place] TOXICOLOGY Etoh (%) null 08/22 [place] TOXICOLOGY Acetaminoph null 10 - 20 08/22 Lv [place] TOXICOLOGY Salicylate 2.3 mg/dL 0.0 - 30.0 08/22 Lv [place] ELECTROLYT AGAP 11.9 meq/L 10.0 - 10/03 ES 20.0 [facility] ELECTROLYT eGFR 131 10/03 Result Comment: The eGFR is calculated using the CKD-EPI formula. In most young, healthy individuals the eGFR will be >90 mL/ min/1.73m2. The eGFR declines with age. An eGFR of 60-89 may be normal in ES mL/min/1.7 some populations, particularly the elderly, for whom the CKD-EPI formula has not been extensively validated. Use of the eGFR is not recommended in the following populations: [facility] 3m2 Individuals with unstable creatinine concentrations, including patients and those with serious co-morbid conditions. Patients with extremes in muscle mass or diet. The data above are obtained from the National Kidney Disease Education Program (NKDEP) which additionally recommends that when the eGFR is used in patients with extremes of body mass index for purposes of drug dosing, the eGFR should be multiplied by the estimated BMI. ELECTROLYT Glucose Lvl 107 mg/dL 70 - 99 10/03 [facility] ELECTROLYT BUN 24 mg/dL 7 - 22 10/03 [facility] ELECTROLYT Creatinine 0.63 mg/dL 0.50 - 10/03 ES Lvl 1.40 [facility] ELECTROLYT Sodium Lvl 142 meq/L 135 - 145 10/03 ES [facility] ELECTROLYT Potassium 3.9 meq/L 3.5 - 5.1 10/03 ES Lv [facility] ELECTROLYT Chloride Lvl 109 meq/L 95 - 109 10/03 [facility] ELECTROLYT CO2 25 meq/L 24 - 32 10/03 [facility] ELECTROLYT Calcium Lvl 8.1 mg/dL 8.5 - 10.5 10/03 [facility] HEMATOLOGY RDW 14.5 % 11.5 - 10/03 MH 14. [facility] HEMATOLOGY Platelet 207 K/CMM 133 - 450 10/03 [facility] HEMATOLOGY MPV 7.3 fL 7.4 - 10.4 10/03 [facility] HEMATOLOGY MCHC 34.9 g/dL 32.0 - 10/03 MH 36.0 [facility] HEMATOLOGY RBC 4.28 M/CMM 4.70 - 10/03 MH 6.10 [facility] HEMATOLOGY Hgb 13.1 g/dL 14.0 - 10/03 18.0 [facility] HEMATOLOGY Hct 37.6 % 42.0 - 10/03 MH 54.0 [facility] HEMATOLOGY MCV 88.0 fL 80.0 - 10/03 MH 94.0 [facility] HEMATOLOGY MCH 30.7 pg 27.0 - 10/03 MH 31.0 [facility] HEMATOLOGY WBC 9.9 K/CMM 3.7 - 10.4 10/03 [facility] HEMATOLOGY Eosinophils 0.1 K/CMM 0.0 - 0.5 10/03 [facility] HEMATOLOGY Monocytes # 0.5 K/CMM 0.0 - 0.8 10/03 [facility] HEMATOLOGY Basophils # 0.1 K/CMM 0.0 - 0.2 10/03 [facility] HEMATOLOGY Segs-Bands # 7.1 K/CMM 1.5 - 8.1 10/03 [facility] HEMATOLOGY Lymphocytes 2.1 K/CMM 1.0 - 5.5 10/03 [facility] HEMATOLOGY Monocytes 5.3 % 2.0 - 12.0 10/03 [facility] HEMATOLOGY Eosinophils 1.0 % 0.0 - 4.0 10/03 [facility] HEMATOLOGY Basophils 0.6 % 0.0 - 1.0 10/03 [facility] HEMATOLOGY Lymphocytes 21.4 % 20.0 - 10/03 MH 40.0 [facility] HEMATOLOGY Segs 71.7 % 45.0 - 10/03 MH 75.0 [facility] CHEM PANEL eGFR 124 10/03 Result Comment: The eGFR is calculated using the CKD-EPI formula. In most young, healthy individuals the eGFR will be >90 mL/ min/1.73m2. The eGFR declines with age. An eGFR of 60-89 may be normal in mL/min/1.7 /2016 some populations, particularly the elderly, for whom the CKD-EPI formula has not been extensively validated. Use of the eGFR is not recommended in the following populations: [address] Individuals with unstable creatinine concentrations, including patients and those with serious co-morbid conditions. Patients with extremes in muscle mass or diet. The data above are obtained from the National Kidney Disease Education Program (NKDEP) which additionally recommends that when the eGFR is used in patients with extremes of body mass index for purposes of drug dosing, the eGFR should be multiplied by the estimated BMI. CHEM PANEL Calcium Lvl 9.0 mg/dL 8.5 - 10.5 10/03 [facility] CHEM PANEL ALT 68 unit/L 0 - 65 10/03 [place] CHEM PANEL Total 7.6 g/dL 6.4 - 8.4 10/03 Protein [place] CHEM PANEL Albumin Lvl 4.2 g/dL 3.5 - 5.0 10/03 [place] CHEM PANEL AST 56 unit/L 0 - 37 10/03 [place] CHEM PANEL Alk Phos 79 unit/L 39 - 136 10/03 [place] CHEM PANEL Bili Total 0.3 mg/dL 0.2 - 1.3 10/03 [place] CHEM PANEL BUN 26 mg/dL 7 - 22 10/03 [place] CHEM PANEL Creatinine 0.73 mg/dL 0.50 - 10/03 Lvl 1.40 [place] CHEM PANEL Glucose Lvl 91 mg/dL 70 - 99 10/03 [place] CHEM PANEL Sodium Lvl 139 meq/L 135 - 145 10/03 [place] CHEM PANEL CO2 27 meq/L 24 - 32 10/03 [place] CHEM PANEL Potassium 3.8 meq/L 3.5 - 5.1 10/03 Lvl [place] CHEM PANEL Chloride Lvl 103 meq/L 95 - 109 10/03 [place] CHEM PANEL Globulin 3.4 g/dL 2.7 - 4.2 10/03 [place] CHEM PANEL A/G Ratio 1.2 0.7 - 1.6 10/03 [facility] CHEM PANEL B/C Ratio 36 6 - 25 10/03 [facility] CHEM PANEL AGAP 12.8 meq/L 10.0 - 10/03 20.0 [facility] DRUG UDS Note See Note 10/03 [facility] (10/02/16 9:41 PM) DRUG U Phencyc Negative Negative 10/03 SCREEN Scr [facility] *NA* (10/02/16 9:41 PM) DRUG U Opiate Scr Negative Negative 10/03 [facility] *NA* (10/02/16 9:41 PM) DRUG U Cannab Scr Positive Negative 10/03 [facility] *ABN* (10/02/16 9:41 PM) DRUG U Cocaine Negative Negative 10/03 SCREEN Scr [facility] *NA* (10/02/16 9:41 PM) DRUG U Dania Scr Negative Negative 10/03 [facility] *NA* (10/02/16 9:41 PM) DRUG U Amph Scr Negative Negative 10/03 [facility] *NA* (10/02/16 9:41 PM) DRUG U Benzodia Negative Negative 10/03 SCREEN Scr [facility] *NA* (10/02/16 9:41 PM) HEMATOLOGY Basophils # 0.1 K/CMM 0.0 - 0.2 10/03 [facility] HEMATOLOGY Monocytes # 0.9 K/CMM 0.0 - 0.8 10/03 [facility] HEMATOLOGY Lymphocytes 1.4 K/CMM 1.0 - 5.5 10/03 [facility] HEMATOLOGY Monocytes 6.1 % 2.0 - 12.0 10/03 [facility] HEMATOLOGY Eosinophils 0.2 % 0.0 - 4.0 10/03 [facility] HEMATOLOGY Segs-Bands # 12.6 K/CMM 1.5 - 8.1 10/03 [facility] HEMATOLOGY Basophils 0.5 % 0.0 - 1.0 10/03 [facility] HEMATOLOGY Lymphocytes 9.4 % 20.0 - 10/03 40.0 [facility] HEMATOLOGY Segs 83.8 % 45.0 - 10/03 75.0 [facility] HEMATOLOGY Platelet 233 K/CMM 133 - 450 10/03 [facility] HEMATOLOGY RDW 14.6 % 11.5 - 10/03 MH 14.5 /2016 [facility] HEMATOLOGY MCHC 33.7 g/dL 32.0 - 10/03 36.0 [facility] HEMATOLOGY MCV 88.6 fL 80.0 - 10/03 94.0 /2016 [facility] HEMATOLOGY Hct 39.5 % 42.0 - 10/03 54.0 /2016 [facility] HEMATOLOGY MCH 29.8 pg 27.0 - 10/03 MH 31.0 [facility] HEMATOLOGY RBC 4.46 M/CMM 4.70 - 10/03 MH 6.10 [facility] HEMATOLOGY Hgb 13.3 g/dL 14.0 - 10/03 18.0 [facility] HEMATOLOGY WBC 15.0 K/CMM 3.7 - 10.4 10/03 [facility] HEMATOLOGY MPV 7.9 fL 7.4 - 10.4 10/03 [facility] TOXICOLOGY Salicylate 2.9 mg/dL 0.0 - 30.0 10/03 Lvl [facility] TOXICOLOGY Etoh (%) null 10/03 [facility] TOXICOLOGY Ethanol Lvl null 10/03 [facility] TOXICOLOGY Acetaminoph null 10 - 20 10/03 Lvl [facility] URINE AND UA <=1.0 0.1 - 1.0 10/03 STOOL Urobilinogen mg/dL /2016 [facility] URINE AND UA Color Ltyellow 10/03 STOOL [facility] URINE AND UA WBC 4 /HPF 0 - 5 10/03 [facility] URINE AND UA Nitrite Negative Negative 10/03 [facility] (10/02/16 9:41 PM) URINE AND UA Blood Moderate Negative 10/03 [facility] *ABN* (10/02/16 9:41 PM) URINE AND UA Bili Negative Negative 10/03 [facility] *NA* (10/02/16 9:41 PM) URINE AND UA Leuk Est Negative Negative 10/03 [facility] (10/02/16 9:41 PM) URINE AND UA [place] Yeast Occasional None Seen 10/03 STOOL /HPF /HPF /2016 [facility] URINE AND UA Sq Epi None Seen 10/03 [facility] URINE AND UA RBC 33 /HPF 0 - 2 10/03 STOOL [place] URINE AND UA Turbidity Clear Clear 10/03 STOOL [facility] (10/02/16 9:41 PM) URINE AND UA pH 5.0 5.0 - 8.0 10/03 STOOL [facility] URINE AND UA Ketones Trace Negative 10/03 STOOL mg/dL mg/dL [facility] URINE AND UA Protein Negative Negative 10/03 STOOL mg/dL mg/dL [facility] URINE AND UA Spec Grav 1.024 <=1.030 10/03 STOOL [facility] URINE AND UA Glucose Negative Negative 10/03 STOOL mg/dL mg/dL [facility] Renal Renal Stone Patient Name: YLUISA SYKES 10/03 - Stone CT CT - [facility] : 1985; Age: 31 years y/o Male MR: [id number] Read by: Caleb Jean MD Dictated Date/time: 10/03/16 01:25 Electronically Signed by: Caleb Jean MD 10/03/16 01:29 FINAL REPORT Study: Renal Stone CT 10/02/2016 11:38 PM [employer] Ordering Physician: Clinical Indication: Hematuria-- Pt reports he has lower back pain that radiates to right leg after falling approximately 3 hours ago.; rule out kidney stone ct dlp; 1106.33mGycm Comparison: None TECHNIQUE: Noncontrasted helical imaging was performed from the kidneys through the symphysis as a renal stone protocol. Multiplanar reformations are available. FINDINGS: This examination is limited for the evaluation of solid organs and vascular structures due to withheld intravenous contrast -- the standard for urinary calculus assessment CT. KIDNEYS: Subtle right pelvocaliectasis and proximal ureterectasis. There is a 4 mm calcification in the right side of the pelvis which approximates the distal right ureter, and is likely right ureteral calculus. LOWER CHEST: The lung bases are not included on the scanning cannot be commented upon SOLID ORGANS: The visualized liver, spleen, pancreas, and adrenal glands are normal. BOWEL: No acute bowel pathology. Normal appendix. PERITONEUM: No free intraperitoneal fluid or air. RETROPERITONEUM: No adenopathy. Aorta is normal. PELVIS: No pelvic mass. The urinary bladder is normal. MUSCULOSKELETAL: The skeleton is intact. IMPRESSION: 4 mm calculus in the distal, mid pelvic right ureteral segment. Mild right proximal ureterectasis and pelvocaliectasis. SL: ANATOLY Spine Spine lumbar Lumbar spine, 2 views dated 10/02/2016. 10/02 - lumbar 2 2 or 3 views /2017 - [place] or 3 views DX DX HISTORY: Posttraumatic lumbar pain. Fall. Read by: Ralph Farris MD Dictated Date/time: 10/02/16 23:13 Electronically Signed by: Ralph Farris MD 10/02/16 23:15 FINAL REPORT AP and lateral views of the lumbar spine demonstrate the presence of 5 lumbar-type vertebra. Lumbar alignment and vertebral body height are maintained. There is no evidence of acute fracture or bone yoseph truction. Slight narrowing of the L5-S1 disc space suggests early disc desiccation/degeneration. The remainder the lumbar disc spaces appear to maintain normal height. Mild degenerative changes are noted in the lower lumbar facet joints. IMPRESSION: 1. No acute bony abnormalities of the lumbar spine are detected. SL: 131 Hip bilat Hip bilat w Pelvis and bilateral hips dated 10/02/2016. 10/02 - w pelvis pelvis and /2016 - [place] and both both lat lat hips hips DX DX HISTORY: Pain status post fall. Read by: Ralph Farris MD Dictated Date/time: 10/02/16 23:11 Electronically Signed by: Ralph Farris MD 10/02/16 23:13 FINAL REPORT AP and frog-leg lateral views of the pelvis and hips demonstrate no evidence of acute pelvic fracture. The sacroiliac joints appear symmetric. No abnormal widening of the pubic symphysis is noted. The p roximal femurs appear intact and normally located. The hip joints are symmetric. IMPRESSION: 1. No acute radiographic abnormalities of the pelvis or hips are detected. SL: 131 IMMUNOLOGY T-Spot.TB Negative Negative 03/12 [facility] (03/12/15 6:19 AM) [place] IMMUNOLOGY RPR Non Reactive Non 03/11 [facility] Reactive /2014 [facility] (03/11/15 4:57 AM) Center ELECTROLYT CO2 29 meq/L 24 - 32 02/25 [facility] ELECTROLYT Chloride Lvl 106 meq/L 95 - 109 02/25 [facility] ELECTROLYT Creatinine 0.6 mg/dL 0.5 - 1.4 02/25 [facility] ELECTROLYT Potassium 3.8 meq/L 3.5 - 5.1 02/25 [facility] ELECTROLYT Sodium Lvl 141 meq/L 135 - 145 02/25 [facility] ELECTROLYT BUN 17 mg/dL 7 - 22 02/25 [facility] ELECTROLYT Glucose Lvl 87 mg/dL 70 - 99 02/25 [facility] ELECTROLYT eGFR 136 02/25 Result Comment: The eGFR is calculated using the CKD-EPI formula. In most young, healthy individuals the eGFR will be >90 mL/ min/1.73m2. The eGFR declines with age. An eGFR of 60-89 may be normal in [facility] mL/min/1.7 some populations, particularly the elderly, for whom the CKD-EPI formula has not been extensively validated. Use of the eGFR is not recommended in the following populations: [address] Individuals with unstable creatinine concentrations, including patients and those with serious co-morbid conditions. Patients with extremes in muscle mass or diet. The data above are obtained from the National Kidney Disease Education Program (NKDEP) which additionally recommends that when the eGFR is used in patients with extremes of body mass index for purposes of drug dosing, the eGFR should be multiplied by the estimated BMI. ELECTROLYT AGAP 9.8 meq/L 10.0 - 02/25 [facility] 20.0 [facility] ELECTROLYT Phosphorus 4.3 mg/dL 2.5 - 4.5 02/25 [facility] ELECTROLYT Albumin Lvl 2.9 g/dL 3.5 - 5.0 02/25 [facility]2014 [facility] ELECTROLYT Calcium Lvl 9.3 mg/dL 8.5 - 10.5 02/25 [facility]2014 [facility] URINE AND UA Spec Grav 1.015 <=1.030 02/24 [facility] URINE AND UA pH 7.0 5.0 - 8.0 02/24 [facility] URINE AND UA Glucose Negative Negative 02/24 [facility] mg/dL mg/dL [facility] URINE AND UA Protein Negative Negative 02/24 [facility] mg/dL mg/dL /2014 [facility] URINE AND UA Color Yellow Yellow 02/24 [facility] Medical *NA* [place] (02/24/15 3:42 PM) URINE AND UA Turbidity Clear Clear 02/24 [facility] (02/24/15 3:42 PM) Center URINE AND UA Nitrite Negative Negative 02/24 [facility] STOOL [facility] (02/24/15 3:42 PM) Center URINE AND UA Leuk Est Negative Negative 02/24 [facility] (02/24/15 3:42 PM) Center URINE AND UA Bili Negative Negative 02/24 [facility] Medical *NA* Center (02/24/15 3:42 PM) URINE AND UA Ketones Negative Negative 02/24 [facility] mg/dL mg/dL /2014 [facility] URINE AND UA Blood Negative Negative 02/24 [facility] (02/24/15 3:42 PM) [place] URINE AND UA 0.2 EU/dL 0.1 - 1.0 02/24 [facility] Urobilinogen /2014 [facility] URINE AND UA Mucus Few /LPF None Seen 02/24 [facility] /LPF [facility] URINE AND UA WBC null 0 - 5 02/24 [facility] URINE AND UA Sq Epi Occasional Few /LPF 02/24 [facility] /LPF [facility] HEMATOLOGY MCHC 34.2 g/dL 32.0 - 02/24 [place] 36.0 [facility] HEMATOLOGY MCV 92.6 fL 80.0 - 02/24 94.0 [facility] HEMATOLOGY MCH 31.6 pg 27.0 - 02/24 31.0 [facility] HEMATOLOGY MPV 6.9 fL 7.4 - 10.4 02/24 [facility] HEMATOLOGY Platelet 351 K/CMM 133 - 450 02/24 [facility] HEMATOLOGY RDW 13.8 % 11.5 - 02/24 [place] 14.5 [facility] HEMATOLOGY WBC 8.1 K/CMM 3.7 - 10.4 02/24 [facility] HEMATOLOGY Hgb 12.8 g/dL 14.0 - 02/24 18.0 [facility] HEMATOLOGY Hct 37.6 % 42.0 - 02/24 [place] 54.0 [facility] HEMATOLOGY RBC 4.06 M/CMM 4.70 - 02/24 [place] 6.10 [facility] HEMATOLOGY Basophils # 0.1 K/CMM 0.0 - 0.2 02/24 [facility] HEMATOLOGY Eosinophils 0.1 K/CMM 0.0 - 0.5 02/24 /2014 [facility] HEMATOLOGY Monocytes # 0.6 K/CMM 0.0 - 0.8 02/24 [facility] HEMATOLOGY Segs-Bands # 5.6 K/CMM 1.5 - 8.1 02/24 [facility] HEMATOLOGY Lymphocytes 1.7 K/CMM 1.0 - 5.5 02/24 /2014 [facility] HEMATOLOGY Eosinophils 1.6 % 0.0 - 4.0 02/24 [facility] HEMATOLOGY Basophils 1.0 % 0.0 - 1.0 02/24 [facility] HEMATOLOGY Monocytes 7.0 % 2.0 - 12.0 02/24 [facility] HEMATOLOGY Segs 68.8 % 45.0 - 02/24 75.0 [facility] HEMATOLOGY Lymphocytes 21.6 % 20.0 - 02/24 [facility] 40.0 [facility] DRUG U Opiate Scr Positive Negative 02/24 Medical *ABN* Center (02/24/15 5:11 AM) DRUG U Cannab Scr Negative Negative 02/24 Medical *NA* Center (02/24/15 5:11 AM) DRUG UDS Note See Note 02/24 [facility] (02/24/15 5:11 AM) Center DRUG U Phencyc Negative Negative 02/24 SCREEN Medical *NA* Center (02/24/15 5:11 AM) DRUG U Cocaine Negative Negative 02/24 SCREEN Medical *NA* Center (02/24/15 5:11 AM) DRUG U Benzodia Negative Negative 02/24 SCREEN Scr Medical *NA* Center (02/24/15 5:11 AM) DRUG U Dania Scr Negative Negative 02/24 Medical *NA* Center (02/24/15 5:11 AM) DRUG U Amph Scr Negative Negative 02/24 Medical *NA* Center (02/24/15 5:11 AM) DRUG UDS Note See Note 02/21 Medical (02/21/15 2:42 PM) Center DRUG U Phencyc Negative Negative 02/21 [place] SCREEN Scr Medical *NA* Center (02/21/15 2:42 PM) DRUG U Methadone Negative Negative 02/21 [place] SCREEN Scr /2014 Medical *NA* Center (02/21/15 2:42 PM) DRUG U Propoxyph Negative Negative 02/21 [place] SCREEN Scr /2014 Medical *NA* Center (02/21/15 2:42 PM) DRUG U Opiate Scr Positive Negative 02/21 [place] SCREEN /2014 Medical *ABN* Center (02/21/15 2:42 PM) DRUG U Cannab Scr Negative Negative 02/21 [place] SCREEN /2014 Medical *NA* Center (02/21/15 2:42 PM) DRUG U Amph Scr Negative Negative 02/21 [place] SCREEN /2014 Medical *NA* Center (02/21/15 2:42 PM) DRUG U Dania Scr Negative Negative 02/21 [place] SCREEN /2014 Medical *NA* Center (02/21/15 2:42 PM) DRUG U Benzodia Negative Negative 02/21 [place] SCREEN Scr /2014 Medical *NA* Center (02/21/15 2:42 PM) DRUG U Cocaine Negative Negative 02/21 [place] SCREEN Scr /2014 Medical *NA* Center (02/21/15 2:42 PM) HEMATOLOGY PTT 29.7 s 22.9 - 02/21 [place] 35.8 /2014 [facility] HEMATOLOGY PT 13.0 s 12.0 - 02/21 [place] 14.7 [facility] HEMATOLOGY INR 0.98 0.85 - 02/21 [place] 1.17 /2014 [facility] HEMATOLOGY Hgb 12.5 g/dL 14.0 - 02/21 [place] 18.0 [facility] HEMATOLOGY MCV 91.5 fL 80.0 - 02/21 [place] 94.0 /2014 [facility] HEMATOLOGY Hct 36.8 % 42.0 - 02/21 [place] 54.0 /2014 [facility] HEMATOLOGY MCHC 33.9 g/dL 32.0 - 07 [place] 36.0 /2014 [facility] HEMATOLOGY MCH 31.1 pg 27.0 - 07 [place] 31.0 [facility] HEMATOLOGY MPV 6.6 fL 7.4 - 10.4 02/21 /2014 [facility] HEMATOLOGY Platelet 444 K/CMM 133 - 450 02/21 /2014 [facility] HEMATOLOGY RDW 13.4 % 11.5 - 07 [facility] [place] 14.5 [facility] HEMATOLOGY WBC 7.2 K/CMM 3.7 - 10.4 02/21 [facility] HEMATOLOGY RBC 4.02 M/CMM 4.70 - 02/21 6.10 [facility] HEMATOLOGY Eosinophils 0.1 K/CMM 0.0 - 0.5 02/21 [facility] /2014 [facility] HEMATOLOGY Basophils # 0.1 K/CMM 0.0 - 0.2 02/21 [facility] HEMATOLOGY Lymphocytes 1.9 K/CMM 1.0 - 5.5 02/21 [facility] /2014 [facility] HEMATOLOGY Monocytes # 0.6 K/CMM 0.0 - 0.8 02/21 2014 [facility] HEMATOLOGY Eosinophils 1.4 % 0.0 - 4.0 02/21 [facility] HEMATOLOGY Basophils 1.1 % 0.0 - 1.0 02/21 [facility] HEMATOLOGY Segs-Bands # 4.4 K/CMM 1.5 - 8.1 02/21 [facility] HEMATOLOGY Lymphocytes 27.0 % 20.0 - 02/21 [place] 40.0 [facility] HEMATOLOGY Monocytes 8.6 % 2.0 - 12.0 02/21 2014 [facility] HEMATOLOGY Segs 61.9 % 45.0 - 02/21 [facility] 75.0 [facility] Chest Chest 1view PORTABLE CHEST 2015-02-20 04:58:00 02/20 [facility] 1view DX - [facility] COMPARISON: Yesterday Read by: Adán Graham MD Dictated Date/time: 02/20/15 10:43 Electronically Signed by: Adán Graham 02/20/15 11:53 FINAL REPORT CLINICAL INDICATION: Tube placement/removal/reposition FINDINGS AND IMPRESSION: Retraction of the right arm PICC now in the distal SVC. Removal of left pleural pigtail catheter and mediastinal Aung drain. Stable cardiac silhouette. Platelike atelectasis in the left lung base. No obvious residual left hydropneumothorax. HEMATOLOGY MPV 6.6 fL 7.4 - 10.4 02/19 [facility] HEMATOLOGY RDW 13.4 % 11.5 - 02/19 [facility] 14.5 /2014 [facility] HEMATOLOGY Platelet 492 K/CMM 133 - 450 02/19 [facility] HEMATOLOGY WBC 6.6 K/CMM 3.7 - 10.4 02/19 [facility] HEMATOLOGY Hgb 12.4 g/dL 14.0 - 02/19 18.0 /2014 [facility] HEMATOLOGY Hct 37.6 % 42.0 - 02/19 54.0 /2014 [facility] HEMATOLOGY RBC 4.09 M/CMM 4.70 - 02/19 6.10 /2014 [facility] HEMATOLOGY MCV 91.9 fL 80.0 - 02/19 94.0 /2014 [facility] HEMATOLOGY MCH 30.4 pg 27.0 - 02/19 31.0 /2014 [facility] HEMATOLOGY MCHC 33.1 g/dL 32.0 - 02/19 [facility] 36.0 /2014 [facility] HEMATOLOGY Monocytes # 0.5 K/CMM 0.0 - 0.8 02/19 [facility] HEMATOLOGY Eosinophils 0.1 K/CMM 0.0 - 0.5 02/19 [facility] # /2014 [facility] HEMATOLOGY Basophils # 0.1 K/CMM 0.0 - 0.2 02/19 [facility] HEMATOLOGY Eosinophils 1.7 % 0.0 - 4.0 02/19 [facility] HEMATOLOGY Monocytes 7.5 % 2.0 - 12.0 02/19 [facility] HEMATOLOGY Lymphocytes 32.7 % 20.0 - 02/19 40.0 /2014 [facility] HEMATOLOGY Segs 57.0 % 45.0 - 02/19 75.0 [facility] HEMATOLOGY Segs-Bands # 3.8 K/CMM 1.5 - 8.1 02/19 [facility] HEMATOLOGY Lymphocytes 2.2 K/CMM 1.0 - 5.5 02/19 [facility] /2014 [facility] HEMATOLOGY Basophils 1.1 % 0.0 - 1.0 02/19 [facility] Chest Chest 1view Portable ap semierect chest February 19, 201502/19 - [facility] 1view DX /2014 - [facility] HISTORY: Tube placement. Comparison is made with yesterday. Read by : Lauren Prajapati MD Dictated Date/time: 02/19/15 11:10 Electronically Signed by: Lauren Prajapati MD 02/19/15 12:52 FINAL REPORT FINDINGS: Cardiomediastinal silhouette and life support lines is stable. There is platelike atelectasis at the left lung base. The remainder of the lungs are clear. Costophrenic sulci are sharp. No pneumothorax is identified, however, a supine film is suboptimal for that determination. An erect film of the chest is suggested in order to more accurately exclude a pneumothorax. CONCLUSION: No significant interval change in the appearance of the chest when compared to prior radiograph. HEMATOLOGY MPV 6.7 fL 7.4 - 10.4 02/18 [facility] HEMATOLOGY Platelet 496 K/CMM 133 - 450 02/18 [facility] HEMATOLOGY RDW 13.0 % 11.5 - 07 14.5 [facility] HEMATOLOGY MCV 91.9 fL 80.0 - 02/18 [facility] 94.0 /2014 [facility] HEMATOLOGY Hct 36.9 % 42.0 - 02/18 [place] 54.0 [facility] HEMATOLOGY MCH 30.6 pg 27.0 - 02/18 [place] 31.0 /2014 [facility] HEMATOLOGY Hgb 12.3 g/dL 14.0 - 02/18 [place] 18.0 /2014 [facility] HEMATOLOGY RBC 4.01 M/CMM 4.70 - 02/18 6.10 [facility] HEMATOLOGY MCHC 33.4 g/dL 32.0 - 02/18 [place] 36.0 /2014 [facility] HEMATOLOGY WBC 6.5 K/CMM 3.7 - 10.4 02/18 2014 [facility] HEMATOLOGY Monocytes # 0.5 K/CMM 0.0 - 0.8 07/ [facility] HEMATOLOGY Eosinophils 1.5 % 0.0 - 4.0 / [facility] HEMATOLOGY Basophils 1.2 % 0.0 - 1.0 / 2014 [facility] HEMATOLOGY Basophils # 0.1 K/CMM 0.0 - 0.2 / 2014 [facility] HEMATOLOGY Eosinophils 0.1 K/CMM 0.0 - 0.5 07/ [facility] # /2014 [facility] HEMATOLOGY Segs-Bands # 3.9 K/CMM 1.5 - 8.1 07/05 [facility] HEMATOLOGY Lymphocytes 2.0 K/CMM 1.0 - 5.5 02/18 [facility] # [facility] HEMATOLOGY Monocytes 7.9 % 2.0 - 12.0 02/18 [facility] HEMATOLOGY Lymphocytes 29.9 % 20.0 - 02/18 [facility] 40.0 [facility] HEMATOLOGY Segs 59.5 % 45.0 - 02/18 [facility] 75.0 [facility] HEMATOLOGY RBC Morph Normal 02/18 [facility] (02/18/15 4:51 AM) [place] HEMATOLOGY Plt Morph Normal 02/18 [facility] (02/18/15 4:51 AM) [place] Chest Chest 1view Chest one view, February 18, 2015 at 4:29 a.m. 02/18 - [facility] 1view DX - [facility] HISTORY: 29-year-old man with pleural effusion, left chest wall abscess with wound VAC in place, left pigtail drain. Read by: Merna Wick MD Dictated Date/time: 02/18/15 13:05 Electronically Signed by: Merna Wick MD 02/18/15 13:38 FINAL REPORT FINDINGS: Comparison is made to February 16. The cardiomediastinal silhouette is stable. Widening along the left side of the mediastinum has gradually improved with superimposed drainage catheter in place, reportedly for treatment of a mediastinal abscess. Other life support lines and tubes are stable. Platelike atelectasis is seen in the bilateral lower lobes. There is a tiny left pleural effusion. IMPRESSION: 1. Widening of the left side of the mediastinum has slightly improved with superimposed drain in place, reportedly for treatment of a mediastinal abscess. 2. Bilateral lower lobe platelike atelectasis. 3. Tiny left pleural effusion. CHEM PANEL Magnesium 1.8 mg/dL 1.8 - 2.4 02/17 [facility] Lvl [facility] HEMATOLOGY Segs 74.0 % 45.0 - 02/17 [facility] 75.0 [facility] HEMATOLOGY Lymphocytes 16.9 % 20.0 - 02/17 [facility] 40.0 [facility] HEMATOLOGY Eosinophils 1.2 % 0.0 - 4.0 02/17 [facility] HEMATOLOGY Monocytes 7.2 % 2.0 - 12.0 / [facility] HEMATOLOGY Basophils 0.7 % 0.0 - 1.0 / [facility] HEMATOLOGY Segs-Bands # 6.5 K/CMM 1.5 - 8.1 02/17 [facility] HEMATOLOGY Eosinophils 0.1 K/CMM 0.0 - 0.5 02/17 [facility] HEMATOLOGY Monocytes # 0.6 K/CMM 0.0 - 0.8 02/17 [facility] HEMATOLOGY Lymphocytes 1.5 K/CMM 1.0 - 5.5 02/17 [facility] HEMATOLOGY Basophils # 0.1 K/CMM 0.0 - 0.2 02/17 [facility] HEMATOLOGY RDW 13.1 % 11.5 - 07 14.5 [facility] HEMATOLOGY Platelet 447 K/CMM 133 - 450 02/17 [facility] HEMATOLOGY MPV 6.5 fL 7.4 - 10.4 02/17 [facility] HEMATOLOGY MCHC 33.5 g/dL 32.0 - 02/17 36.0 [facility] HEMATOLOGY WBC 8.8 K/CMM 3.7 - 10.4 02/17 [facility] HEMATOLOGY Hgb 11.6 g/dL 14.0 - 02/17 18.0 [facility] HEMATOLOGY RBC 3.79 M/CMM 4.70 - 02/17 6.10 [facility] HEMATOLOGY MCV 91.2 fL 80.0 - 02/17 94.0 [facility] HEMATOLOGY Hct 34.6 % 42.0 - 07 54.0 [facility] HEMATOLOGY MCH 30.6 pg 27.0 - 02/17 31.0 [facility] CHEM PANEL Phosphorus 4.0 mg/dL 2.5 - 4.5 02/16 [facility] CHEM PANEL Magnesium 1.7 mg/dL 1.8 - 2.4 02/16 Lvl [facility] ELECTROLYT AGAP 13.1 meq/L 10.0 - 02/16 [facility] ES 20.0 [facility] ELECTROLYT eGFR 161 02/16 2Result Comment: The eGFR is calculated using the CKD-EPI formula. In most young, healthy individuals the eGFR will be > 90 mL/min/1.73m2. The eGFR declines with age. An eGFR of 60-89 may be normal in [facility] mL/min/1. some populations, particularly the elderly, for whom the CKD-EPI formula has not been extensively validated. Use of the eGFR is not recommended in the following populations: [address] Individuals with unstable creatinine concentrations, including patients and those with serious co-morbid conditions. Patients with extremes in muscle mass or diet. The data above are obtained from the National Kidney Disease Education Program (NKDEP) which additionally recommends that when the eGFR is used in patients with extremes of body mass index for purposes of drug dosing, the eGFR should be multiplied by the estimated BMI. ELECTROLYT Creatinine 0.4 mg/dL 0.5 - 1.4 02/16 [facility] ELECTROLYT Sodium Lvl 138 meq/L 135 - 145 02/16 [facility]2014 [facility] ELECTROLYT Chloride Lvl 101 meq/L 95 - 109 02/16 [facility] ELECTROLYT Glucose Lvl 89 mg/dL 70 - 99 02/16 5Interpretive Data: Adult reference range values reflect the clinical guidelines [facility] of the [employer] [employer]. [facility] ELECTROLYT BUN 11 mg/dL 7 - 22 02/16 [facility] ELECTROLYT Potassium 4.1 meq/L 3.5 - 5.1 02/16 [facility] ELECTROLYT CO2 28 meq/L 24 - 32 02/16 [facility] ELECTROLYT Calcium Lvl 8.6 mg/dL 8.5 - 10.5 02/16 [facility]2014 [facility] HEMATOLOGY Bands 2.0 % 0.0 - 11.0 02/16 [facility] HEMATOLOGY Atypical 0.0 % <=0.0 % 02/16 [facility] Lymphs [facility] HEMATOLOGY Myelocytes 5.0 % <=0.0 % 02/16 [facility] Chest Chest 1view Chest one view, February 16, 2015 at 4:25 a.m. 02/16 - [facility] 1view DX - [facility] HISTORY: 29-year-old man with tube placement/removal/reposition. Read by: Merna Wick MD Dictated Date/time: 02/16/15 13:20 Electronically Signed by: Merna Wick MD 02/16/15 14:10 FINAL REPORT FINDINGS: Comparison is made to yesterday morning. The cardiomediastinal silhouette is stable with prominence of the left side of the mediastinum and superimposed drain in place reportedly for mediastinal abscess. A right-sided PICC line is stable. A left retrocardiac opacity has decreased. A tiny left pleural effusion has resolved. There is a miniscule left apical pneumothorax. A new left basal pleural pigtail drain is present. IMPRESSION: 1. Stable widening of the left side of the mediastinum with superimposed drain, reportedly for mediastinal abscess. 2. A left retrocardiac opacity has decreased and could represent improvement of atelectasis and/or pneumonia. 3. Tiny left pneumothorax with new left basal pleural pigtail drain in place. The left pleural effusion has resolved. BODY Protein BF 3.9 g/dL 02/15 14Interpretiv [facility] e Data: Medical Reference Center Range is not defined and interpretatio n must be performed in the consideration of the pathophysiolo gy of the analyte and the clinical context. BODY Prot BF Type Pleural 02/15 Medical *NA* Center (02/15/15 6:56 PM) BODY LDH BF Type Pleural 02/15 [facility] Medical *NA* Center (02/15/15 6:56 PM) BODY LDH BF 345 unit/L 02/15 15Interpretiv [facility] e Data: Medical Reference Center Range is not defined and interpretatio n must be performed in the consideration of the pathophysiolo gy of the analyte and the clinical context. BODY Gluc BF Type Pleural 02/15 Medical *NA* Center (02/15/15 6:56 PM) BODY Glucose BF 74 mg/dL 02/15 12Interpretiv [facility] e Data: Medical Reference Center Range is not defined and interpretatio n must be performed in the consideration of the pathophysiolo gy of the analyte and the clinical context. BODY pH BF Type Pleural 02/15 Medical (02/15/15 6:56 PM) Center BODY pH BF 8.00 02/15 13Interpretiv [facility] e Data: No Medical established Center reference ranges. BODY Macrophage 46 % / [place] FLUIDS BF /2014 Medical Center BODY Eos BF 6 % 02/15 [facility] FLUIDS /2014 [facility] Center BODY Lymph BF 32 % 02/15 [facility] FLUIDS /2014 [facility] Center BODY Segs BF 16 % 02/15 18Interpretiv [facility] FLUIDS e Data: No Medical established Center reference ranges. BODY Clarity BF Moderate Cloudy Clear 02/15 [facility] FLUIDS Medical *ABN* Center (02/15/15 6:56 PM) BODY Color BF Light Red 02/15 [facility] FLUIDS /2014 [facility] Center BODY CellCnt BF Pleural 02/15 [facility] Type /2014 Medical (02/15/15 6:56 PM) Center BODY Supernat BF Yellow Colorless 02/15 [facility] FLUIDS [facility] *ABN* Center (02/15/15 6:56 PM) [place] [address] /mm3 02/15 16Interpretiv [facility] e Data: No Medical established Center reference ranges. BODY WBC BF 1960 /mm3 02/15 17Interpretiv [facility] FLUIDS e Data: No Medical established Center reference ranges. Thoracente Thoracentesi STUDY: Left chest tube 02/15 - [facility] [place] Aspiration /2014 - Medical Aspiration [facility] Center CT DATE: February 15, 2015 Read by: Rebel Miles MD Dictated Date/time: 02/21/15 08:00 Electronically Signed by: Rebel Miles MD 02/21/15 08:03 FINAL REPORT INDICATION(S): Pleural effusion on the left PROCEDURE: Patient is placed in the CT table an area sterilely prepped and draped. 1% lidocaine was infiltrated for local anesthesia. Using CT guidance an 18-gauge needle was placed into the left pleura l fluid and over 0 .0 3 5-inch wire a Chestnut locking loop catheter was placed into the pleural fluid confirmed by CT. It was sutured to the body with 2 -0 Prolene. [employer] OFFICER: Jd ASSISTANTS: [] SEDATION/PAIN CONTROL: Local anesthesia lidocaine an moderate sedation. Time [] minutes COMPLICATIONS: None ESTIMATED BLOOD LOSS: None FLUOROSCOPIC TIME: [] minutes RADIATION DOSE: [] mGy FINDINGS: Left chest tube placed. There is left pleural effusion and some collapse left lower lobe. Some minimal infiltrate and perhaps pleural fluid is present at the right base posterior IMPRESSION: Left chest tube placed Dr. Miles was present for the entire procedure. TOXICOLOGY Vanco Tr TND 1000 02/15 [facility] TOXICOLOGY Vanco Tr 8.8 ug/ml 02/15 9Interpretive Data: Therapeutic Range: Trough: 10 - 20 ug/mL [facility] Peak: 20 - 40 ug/mL [place] Potential Toxicity: >80 ug/mL Chest wo Chest wo CT CHEST WITHOUT CONTRAST 2015-02-15 14:41:00 02/15 - [facility] contrast contrast CT /2014 - [facility] COMPARISON: 02/10/2015 Read by: Adán Graham MD Dictated Date/time: 02/15/15 15:32 Electronically Signed by: Adán Graham 02/16/15 09:34 FINAL REPORT CLINICAL INDICATION: Pleural effusion TECHNIQUE: The chest CT was performed without intravenous contrast. The chest was scanned from apices to bases. Reformatted sagittal and coronal images were obtained and reviewed. FINDINGS: MEDIASTINUM/FLORI/VESSELS: Status post surgical debridement with a drainage device in place of a left anterior superior/presternal and prevascular mediastinal abscess, with residual fluid collection mine suring approximately 4.2 x 3 cm on coronal image 70 in the prevascular space and smaller residual fluid collection in the presternal space. There is a right arm PICC in the SVC. The heart size is normal and there is a trace reactive pericardial effusion. Scattered subcentimeter mediastinal lymph nodes are likely reactive in nature. Lack of intravenous contrast limits evaluation for hilar lymphadenopathy. LUNGS/PLEURA: There is a moderate left and small right pleural effusion. There is abundant compressive atelectasis of the left lower lobe. Trace left apical pneumothorax. BONES/SOFT TISSUES: Mild irregularity of the sternum at the level of the second costal cartilage could be postsurgical versus from osteomyelitis. Skin defect with packing material and small drain is se en in the left anterior chest wall with subcutaneous emphysema. Fluid density and foci of gas are seen in the left pectoralis major muscle in keeping with recent history of abscess debridement. Within t his same incision there is also insertion of a Aung mediastinal tube drain. Diffuse stranding seen throughout the anterior and posterior sternal soft tissues, extending into the left pectoralis muscl e and axillary deep and superficial soft tissues. Bilateral subcentimeter axillary lymph nodes. UPPER ABDOMEN: No acute abnormality. CONCLUSION: 1. Interval surgical debridement of a left subpectoral, presternal and prevascular/anterior mediastinal abscess with Crawford mediastinal drain in place. Residual fluid collections in the prevascular spa ce and presternal region. Mild irregularity of the sternum at the level of the second costal cartilage could be postsurgical versus from osteomyelitis. 2. Skin defect with packing material and small drain is seen in the left anterior chest wall with subcutaneous emphysema. Fluid density and foci of gas are seen in the left pectoralis major muscle in ke eping with recent history of abscess debridement. Diffuse stranding seen throughout the anterior and left chest wall deep and superficial soft tissues. 3. Moderate left and small right pleural effusions. Abundant compressive atelectasis of left greater than right lower lobes. 4. Small left anterior apical pneumothorax. Chest Chest 1view Chest one view, February 15, 2015 at 9:32 a.m. 02/15 - [address] DX DX /2014 - [facility] HISTORY: 29-year-old man with PICC line placement. Read by: Merna Wick MD Dictated Date/time: 02/15/15 09:37 Electronically Signed by: Merna Wick MD 02/15/15 11:34 FINAL REPORT FINDINGS: Comparison is made to February 15 at 4:47 a.m. The cardiomediastinal silhouette is stable with prominence along the left side of the mediastinum and superimposed drain, reportedly for treatment of a mediastinal abscess. A small left pleural effusion persists. There is a left retrocardiac opacity which may be due to a layering left pleural effusion and/or a left lower lobe air space opacity such as pneumonia or atelectasis. The left upper lobe and right lung are clear. A new right-sided PICC line has its tip at the atriocaval junction. IMPRESSION: New right-sided PICC line but otherwise no change since earlier today. CHEM PANEL Phosphorus 2.8 mg/dL 2.5 - 4.5 02/15 [facility] /[address] [place] [address] CHEM PANEL Magnesium 1.9 mg/dL 1.8 - 2.4 02/[address] CHEM PANEL eGFR 161 02/15 3Result Comment: The eGFR is calculated using the CKD-EPI formula. In most young, healthy individuals the eGFR will be > 90 mL/min/1.73m2. The eGFR declines with age. An eGFR of 60-89 may be normal in [facility] mL/min/1.7 some populations, particularly the elderly, for whom the CKD-EPI formula has not been extensively validated. Use of the eGFR is not recommended in the following populations: [address] Individuals with unstable creatinine concentrations, including patients and those with serious co-morbid conditions. Patients with extremes in muscle mass or diet. The data above are obtained from the National Kidney Disease Education Program (NKDEP) which additionally recommends that when the eGFR is used in patients with extremes of body mass index for purposes of drug dosing, the eGFR should be multiplied by the estimated BMI. CHEM PANEL BUN 10 mg/dL 7 - 22 02/15 [facility] CHEM PANEL Creatinine 0.4 mg/dL 0.5 - 1.4 02/15 [facility] CHEM PANEL AGAP 14.6 meq/L 10.0 - 02/15 [facility] 20.0 [facility] CHEM PANEL Sodium Lvl 139 meq/L 135 - 145 02/15 [facility] CHEM PANEL Potassium 4.6 meq/L 3.5 - 5.1 02/15 1Result [facility] Comment: [facility] Slightly Hemolyzed. CHEM PANEL Glucose Lvl 65 mg/dL 70 - 99 02/15 6Interpretive Data: Adult reference range values reflect the clinical guidelines of the [place] [employer]. [facility] CHEM PANEL CO2 27 meq/L 24 - 32 02/15 [facility] CHEM PANEL Calcium Lvl 9.0 mg/dL 8.5 - 10.5 02/15 [facility] CHEM PANEL Chloride Lvl 102 meq/L 95 - 109 02/15 [facility] HEMATOLOGY Atypical 0.0 % <=0.0 % 02/15 [facility] Lymphs [facility] HEMATOLOGY Anisocyte 1+ None Seen 02/15 [facility] *ABN* Center (02/15/15 3:59 AM) HEMATOLOGY Bands 2.0 % 0.0 - 11.0 02/15 [facility] Chest Chest 1view Chest one view, February 15, 2015 at 4:47 a.m. 02/15 - [facility] 1view DX DX - [facility] Center HISTORY: 29-year-old man with pleural effusion. Read by: Merna Wick MD Dictated Date/time: 02/15/15 09:36 Electronically Signed by: Merna Wick MD 02/15/15 11:34 FINAL REPORT FINDINGS: Comparison is made to February 13. The cardiomediastinal silhouette is stable. Again seen is prominence along the left side of the mediastinum with superimposed drain, reportedly to treat a mediastinal abscess. There is a small left pleu ral effusion. There is a left retrocardiac opacity which may be due to a layering left pleural effusion and/or a left lower lobe air space opacity such as pneumonia or atelectasis. The left upper lobe and right lung are clear. IMPRESSION: No change since February 13. TOXICOLOGY Vanco Tr 10.4 ug/ml 02/14 10Interpretive Data: Therapeutic Range: Trough: 10 - 20 ug/mL Medical Peak: 20 - 40 ug/mL Center Potential Toxicity: >80 ug/mL TOXICOLOGY Vanco Tr TND 1700 02/[address] CHEM PANEL BUN 10 mg/dL 7 - 22 02/[address] CHEM PANEL Creatinine 0.5 mg/dL 0.5 - 1.4 02/14 [facility] [place]2014 [facility] CHEM PANEL Glucose Lvl 98 mg/dL 70 - 99 02/14 7Interpretive Data: Adult reference range values reflect the clinical guidelines of the [place] [employer]. [facility] CHEM PANEL Sodium Lvl 136 meq/L 135 - 145 02/[address] CHEM PANEL CO2 29 meq/L 24 - 32 02/[address] CHEM PANEL Calcium Lvl 8.8 mg/dL 8.5 - 10.5 02/[address] CHEM PANEL Chloride Lvl 99 meq/L 95 - 109 02/[address] CHEM PANEL Potassium 4.1 meq/L 3.5 - 5.1 02/[address] CHEM PANEL eGFR 146 02/14 4Result Comment: The eGFR is calculated using the CKD-EPI formula. In most young, healthy individuals the eGFR will be > 90 mL/min/1.73m2. The eGFR declines with age. An eGFR of 60-89 may be normal in [facility] [place] mL/min/1.7 /2014 some populations, particularly the elderly, for whom the CKD-EPI formula has not been extensively validated. Use of the eGFR is not recommended in the following populations: [address] Center Individuals with unstable creatinine concentrations, including patients and those with serious co-morbid conditions. Patients with extremes in muscle mass or diet. The data above are obtained from the National Kidney Disease Education Program (NKDEP) which additionally recommends that when the eGFR is used in patients with extremes of body mass index for purposes of drug dosing, the eGFR should be multiplied by the estimated BMI. CHEM PANEL AGAP 12.1 meq/L 10.0 - 02/14 [facility] 20.0 [facility] CHEM PANEL Phosphorus 3.1 mg/dL 2.5 - 4.5 02/14 [facility] /2014 [facility] Chest Chest 1view Chest one view, February 13, 2015 at 10:16 a.m. 02/13 - [facility] 1view DX - [facility] HISTORY: 29-year-old man with tube placement/removal/reposition. Read by: Merna Wick MD Dictated Date/time: 02/13/15 12:30 Electronically Signed by: Merna Wick MD 02/14/15 08:04 FINAL REPORT FINDINGS: Comparison is made to yesterday. The mediastinum is widened, especially on the left side. The patient reportedly has an anterior mediastinal abscess which has been drained. There is a superimposed drain of the left-sided mediastinum. These findings are stable. There is a left retrocardiac opacity which may be due to a layering left pleural effusion and/or a left lower lobe air space opacity such as pneumonia or atelectasis. There is a small left pleural effusion. The left upper lobe and right lung are clear. IMPRESSION: 1. New small left pleural effusion. 2. Left retrocardiac opacity. 3. Stable widening of the left side of the mediastinum with superimposed drain, reportedly for mediastinal abscess. BLOOD BANK ABO/Rh O POS 02/13 [facility] RESULTS /2014 [facility] BLOOD BANK Antibody Negative 02/13 [facility] RESULTS Scrn /2014 Medical (02/13/15 4:28 AM) Center HEMATOLOGY PTT 37.4 s 22.9 - 02/13 22Interpretiv [facility] 35.8 /2015 e Data: [facility] Heparin Center Therapeutic Range: 57 - 92 Seconds HEMATOLOGY PT 13.9 s 12.0 - 02/13 [facility] 14.7 [facility] HEMATOLOGY INR 1.07 0.85 - 02/13 19Interpretive Data: RECOMMENDED RANGES FOR PROTIME INR: [facility] . 2.0-3.0 for most medical and surgical thromboembolic states. Medical 2.5-3.5 for artificial heart valves and recurrent embolism. Center INR SHOULD BE USED ONLY FOR PATIENTS ON STABLE ANTICOAGULANT THERAPY. HEMATOLOGY RBC Morph Normal 02/13 [facility] (02/13/15 4:28 AM) [place] HEMATOLOGY Plt Morph Normal 02/13 [facility] (02/13/15 4:28 AM) [place] TOXICOLOGY Vanco Tr TND 1945 02/13 [facility] TOXICOLOGY Vanco Tr 4.6 ug/ml 02/13 11Interpretive Data: Therapeutic Range: Trough: 10 - 20 ug/mL [facility] Peak: 20 - 40 ug/mL [place] Potential Toxicity: >80 ug/mL BLOOD BANK RBC product Product available 02/12 [facility] (02/12/15 9:43 AM) [place] Chest Chest view Chest one view, February 12, 2015 AT 1:52 a.m. 02/12 - [facility] 1view DX - [facility] HISTORY: 29-year-old man with abnormal chest sounds. Read by: Merna Wick MD Dictated Date/time: 02/12/15 11:09 Electronically Signed by: Merna Wick MD 02/12/15 13:05 FINAL REPORT FINDINGS: Comparison is made to yesterday morning. The mediastinum is widened, especially on the left side. The patient reportedly has an anterior mediastinal abscess which has been drained. There is a superimposed drain over the left side of the mediastinum. These findings are stable. There is a left retrocardiac opacity which may be due to a layering left pleural effusion and/or a left lower lobe air space opacity such as pneumonia or atelectasis. The left upper lobe and right lung are clear. No pleural effusions are seen. IMPRESSION: No change. DRUG U Phencyc Negative Negative 02/12 [facility] SCREEN Medical *NA* Center (02/11/15 8:19 PM) DRUG UDS Note See Note 8 02/12 8Interpretive Data: Drugs reported as positive have not been confirmed by a second method and should be used for medical purposes only. To order Medical (02/11/15 8:19 PM) confirmation, contact laboratory. Center note: Below are cut-off concentrations for all urine drugs of abuse performed in the laboratory. Some drugs listed in the table may not be included in this panel. Description Cut-off concentration Amphetamine 1000 ng/mL Barbiturates 200 ng/mL Benzodiazepines 300 ng/mL Cocaine metabolites 300 ng/mL Opiates 300 ng/mL Phencyclidine 25 ng/mL Propoxyphene 300 ng/mL Marijuana metabolites 50 ng/mL Methadone 300 ng/mL Urine alcohol 20 mg/dL DRUG U Cannab Scr Positive Negative 02/12 Medical *ABN* Center (02/11/15 8:19 PM) DRUG U Cocaine Negative Negative 02/12 [place] [facility] *NA* Center (02/11/15 8:19 PM) DRUG U Opiate Scr Positive Negative 02/12 Medical *ABN* Center (02/11/15 8:19 PM) DRUG U Benzodia Negative Negative 02/12 [place] SCREEN Medical *NA* Center (02/11/15 8:19 PM) DRUG U Amph Scr Negative Negative 02/12 Medical *NA* Center (02/11/15 8:19 PM) DRUG U Dania Scr Negative Negative 02/12 Medical *NA* Center (02/11/15 8:19 PM) HEMATOLOGY PTT 38.9 s 22.9 - 02/11 23Interpretiv [place] 35.8 /2015 e Data: [facility] Therapeutic Range: 57 - 92 Seconds HEMATOLOGY PT 14.5 s 12.0 - 02/11 [place] 14.7 [facility] HEMATOLOGY INR 1.12 0.85 - 02/11 20Interpretive Data: RECOMMENDED RANGES FOR PROTIME INR: [facility] 1. 2.0-3.0 for most medical and surgical thromboembolic states. Medical 2.5-3.5 for artificial heart valves and recurrent embolism. Center INR SHOULD BE USED ONLY FOR PATIENTS ON STABLE ANTICOAGULANT THERAPY. PARATHYROI Ca Norm WB 1.14 1.05 - 02/11 [facility] D PROFILE mMol/L . [facility] PARATHYROI Ca Ion WB 1.15 1.05 - 02/11 [facility] D PROFILE mMol/L 1. [facility] IMMUNOLOGY RPR Non Reactive Non 02/11 [facility] Reactive Medical (02/11/15 3:44 AM) Center IMMUNOLOGY Hep C Ab Negative 02/11 [facility] *NA* [place] (02/11/15 3:44 AM) [facility]UNOLOGY [facility]s [facility] [place] [facility]02[facility]11[facility]15 3:44 [facility] IMMUNOLOGY HIV 1/2 Ab Negative Negative [facility] [place] (02/11/15 3:44 AM) Chest Chest 1view EXAM: XR CHEST 1 VIEW 02/11 - [facility] 1view DX DX /2014 [facility] DATE: February 11, 2015. Read by: Gricelda Wong MD Dictated Date/time: 02/11/15 17:20 Electronically Signed by: Gricelda Wong MD 02/11/15 17:54 FINAL REPORT INDICATION: Abnormal chest sounds. COMPARISON: X-ray chest February 10, 2015. TECHNIQUE: Frontal view provided for interpretation FINDINGS/ IMPRESSION: The left lung base opacity likely represents atelectasis or pneumonia. The wound vac projecting over the upper mediastinum and aortic arch is stable. A small left apical pneumothorax is seen. The heart size is stable. The findings were informed to and acknowledged by Nurse Marco Antonio on 2014 at 5.53 PM. Chest Chest 1view EXAM: CHEST 1 VIEW 02/10 - [place] 1view DX DX /[address] [place] [address] DATE: Feb 10, 2015 06:40:00 PM Read by: Lolis Eden MD Dictated Date/time: 02/11/15 05:18 Electronically Signed by: Lolis Eden MD 02/11/15 07:52 FINAL REPORT INDICATION: Chest pain COMPARISON: February 10, 2015 at 1529 hours from [facility] TECHNIQUE: Single AP view of the chest FINDINGS: A left mediastinal wound VAC is positioned over the superior left mediastinum partially superimposed upon aortic arch. Very faint streaky radiolucencies suggesting air is seen superimposed up on the left second rib and spine of left scapula. The lungs are clear. The costophrenic sulci are sharp without effusion. The heart size and mediastinal contours are within normal limits. No acute bony abnormality is identified. IMPRESSION: 1. Wound VAC positioned over left superior mediastinum without additional acute cardiopulmonary disease identified. CARDIAC Total CK 64 unit/L 12 - 191 02/10 [facility] ENZYMES [facility] CHEM PANEL Procalcitoni <0.05 0.00 - 02/10 [facility] n Lvl ng/mL 0.10 [facility] CHEM PANEL Bili 0.2 mg/dL 0.0 - 1.0 02/10 [facility] Indirect [facility] CHEM PANEL Bili Total 0.3 mg/dL 0.2 - 1.3 02/10 [facility]2014 [facility] CHEM PANEL Bili Direct 0.1 mg/dL 0.0 - 0.3 02/10 [facility]2014 [facility] CHEM PANEL Total 7.4 g/dL 6.4 - 8.4 02/10 [facility] Protein [facility] CHEM PANEL Globulin 4.9 g/dL 2.0 - 4.0 02/[address] CHEM PANEL Albumin Lvl 2.5 g/dL 3.5 - 5.0 02/[address] CHEM PANEL Alk Phos 107 unit/L 39 - 136 02/10 [facility]2014 [facility] CHEM PANEL AST 30 unit/L 0 - 37 02/10 [facility]2014 [facility] CHEM PANEL A/G Ratio 0.5 0.7 - 1.6 02/[address] CHEM PANEL ALT 46 unit/L 0 - 65 02/[address] BACTERIAL MRSA by PCR Negative 02/10Interpretive Data: Interpretive Data: The Donna LightCycler MRSA assay is a qualitative test for the direct detection of nasal colonization with methicillin-resistant Staphylococcus aureus (MRSA) to aid in the prevention and control of MRSA infections in healthcare settings. A positive result does not indicate an infection or require treatment. A negative result does not exclude colonization or infection. [facility] (02/10/15 11:44 AM) [place] The polymerase chain reaction (PCR) assay detects a proprietary sequence indicative of the integration of the SCCmec cassette into the Staphylococcus aureus chromosome, indicating the presence of MRSA D NA. The assay utilizes FDA cleared IVD reagents. Performance characteristics have been verified by the Molecular Diagnostic Laboratory within the [facility]. The Molecular Diagnostic Labor atory is authorized under the Clinical Laboratory Improvement Amendment of 1988 (CLIA-88) to perform high complexity testing. BLOOD BANK Antibody Negative 02/10 [facility] RESULTS Scrn [facility] (02/10/15 11:44 AM) [place] BLOOD BANK ABO/Rh O POS 02/10 [facility] RESULTS /2014 [facility] CHEM PANEL Lactic Acid 1.0 mMol/L 0.5 - 2.2 02/10 [facility] Lvl /2014 [facility] HEMATOLOGY PT 14.7 s 12.0 - 02/10 [facility] 14.7 [facility] HEMATOLOGY PTT 35.1 s 22.9 - 02/10 24Interpretiv [facility] 35.8 /2014 e Data: [facility] Heparin [place] Therapeutic Range: 57 - 92 Seconds HEMATOLOGY INR 1.14 0.85 - 02/10 21Interpretive Data: RECOMMENDED RANGES FOR PROTIME INR: [facility] . 2.0-3.0 for most medical and surgical thromboembolic states. Medical 2.5-3.5 for artificial heart valves and recurrent embolism. Center INR SHOULD BE USED ONLY FOR PATIENTS ON STABLE ANTICOAGULANT THERAPY. PARATHYROI Ca Ion WB 1.10 1.05 - 02/10 [facility] D PROFILE mMol/L 1. [facility] PARATHYROI Ca Norm WB 1.07 1. - 02/10 [facility] D PROFILE mMol/L 1. [facility] Ext Upper Ext Upper UPPER EXTREMITY VENOUS DOPPLER ULTRASOUND, RIGHT - [facility] Venous Venous /2013 - Medical Doppler Doppler Center Unilat US Unilat US INDICATION: Pain Read by: Favio Fernandes MD Dictated Date/time: 08/08/14 09:03 Electronically Signed by: Favio Fernandes MD 08/08/14 09:06 FINAL REPORT PROCEDURE: The veins of the right upper extremity were evaluated with real time imaging and color Doppler. Spectral Doppler was also used to evaluate flow. FINDINGS: The deep veins of the the right upper extremity including the jugular, subclavian, axillary and brachial are patent and normally compressible with no focal fluid collections. The basilic a nd cephalic veins have normal flow and are compressible. A right-sided antecubital vein had echogenic material in its lumen and was not compressible. IMPRESSION: No evidence for deep venous thrombosis of the right upper extremity veins. Superficial thrombophlebitis was present in an antecubital vein. Chest Chest 1view EXAM: XR CHEST 1 VIEW 08/06 - [facility] - [facility] DATE: 08/06/2014 at 10:45 Read by: Huy Daly MD Dictated Date/time: 08/06/14 16:43 Electronically Signed by: Huy Daly MD 08/06/14 16:43 FINAL REPORT INDICATION: Chest pain COMPARISON: 08/04/2014 at 1208 TECHNIQUE: Single AP view of the chest DISCUSSION: No pulmonary or pleural based abnormality is identified. The cardiomediastinal silhouette is normal for technique. No acute bony abnormality is identified. IMPRESSION: Stable exam without acute changes. CHEM PANEL Phosphorus 3.4 mg/dL 2.5 - 4.5 08/06 [facility] CHEM PANEL Magnesium 1.9 mg/dL 1.8 - 2.4 08/06 [facility] CHEM PANEL eGFR 116 08/06 1Result Comment: The eGFR is calculated using the CKD-EPI formula. In most young, healthy individuals the eGFR will be > 90 mL/min/1.73m2. The eGFR declines with age. An eGFR of 60-89 may be normal in [facility] mL/min/1.7 /2013 some populations, particularly the elderly, for whom the CKD-EPI formula has not been extensively validated. Use of the eGFR is not recommended in the following populations: [address] Individuals with unstable creatinine concentrations, including patients and those with serious co-morbid conditions. Patients with extremes in muscle mass or diet. The data above are obtained from the National Kidney Disease Education Program (NKDEP) which additionally recommends that when the eGFR is used in patients with extremes of body mass index for purposes of drug dosing, the eGFR should be multiplied by the estimated BMI. CHEM PANEL Chloride Lvl 102 meq/L 95 - 109 08/06 [facility] CHEM PANEL Sodium Lvl 135 meq/L 135 - 145 08/06 [facility] CHEM PANEL Creatinine 0.9 mg/dL 0.5 - 1.4 08/06 [facility] /2014 [facility] CHEM PANEL Potassium 4.3 meq/L 3.5 - 5.1 08/06 [facility] CHEM PANEL Calcium Lvl 8.5 mg/dL 8.5 - 10.5 08/06 [facility] CHEM PANEL AGAP 12.3 meq/L 10.0 - 08/06 20.0 [facility] CHEM PANEL CO2 25 meq/L 24 - 32 08/06 [facility] CHEM PANEL BUN 15 mg/dL 7 - 22 08/06 [facility] CHEM PANEL Glucose Lvl 84 mg/dL 70 - 99 08/06 4Interpretive Data: Adult reference range values reflect the clinical guidelines of the [place] [employer]. Medical Center HEMATOLOGY Segs 57.0 % 45.0 - 08/06 75.0 [facility] HEMATOLOGY Lymphocytes 29.6 % 20.0 - 08/06 40.0 [facility] HEMATOLOGY Monocytes 9.2 % 2.0 - 12.0 08/06 [facility] HEMATOLOGY Eosinophils 3.6 % 0.0 - 4.0 08/06 [facility] HEMATOLOGY Basophils 0.6 % 0.0 - 1.0 08/06 [facility] HEMATOLOGY Eosinophils 0.3 K/CMM 0.0 - 0.5 08/06 [facility] HEMATOLOGY Segs-Bands # 4.2 K/CMM 1.5 - 8.1 08/06 [facility] HEMATOLOGY Lymphocytes 2.2 K/CMM 1.0 - 5.5 08/06 [facility] HEMATOLOGY Monocytes # 0.7 K/CMM 0.0 - 0.8 08/06 [facility] HEMATOLOGY MPV 8.5 fL 7.4 - 10.4 08/06 [facility] HEMATOLOGY Platelet 190 K/CMM 133 - 450 08/06 [facility] HEMATOLOGY MCHC 33.9 g/dL 32.0 - 08/06 36.0 [facility] HEMATOLOGY RDW 12.5 % 11.5 - 08/06 14.5 [facility] HEMATOLOGY Hct 41.7 % 42.0 - 08/06 54.0 /2013 [facility] HEMATOLOGY MCV 91.9 fL 80.0 - 08/06 94.0 [facility] HEMATOLOGY MCH 31.1 pg 27.0 - 08/06 31.0 [facility] HEMATOLOGY WBC 7.3 K/CMM 3.7 - 10.4 08/06 [facility] HEMATOLOGY Hgb 14.1 g/dL 14.0 - 08/06 18.0 [facility] HEMATOLOGY RBC 4.54 M/CMM 4.70 - 08/06 [facility] 6.10 [facility] CHEM PANEL Magnesium 1.8 mg/dL 1.8 - 2.4 08/05 [facility] CHEM PANEL eGFR 122 08/05 2Result Comment: The eGFR is calculated using the CKD-EPI formula. In most young, healthy individuals the eGFR will be > 90 mL/min/1.73m2. The eGFR declines with age. An eGFR of 60-89 may be normal in [facility] mL/min/1. some populations, particularly the elderly, for whom the CKD-EPI formula has not been extensively validated. Use of the eGFR is not recommended in the following populations: [address] Individuals with unstable creatinine concentrations, including patients and those with serious co-morbid conditions. Patients with extremes in muscle mass or diet. The data above are obtained from the National Kidney Disease Education Program (NKDEP) which additionally recommends that when the eGFR is used in patients with extremes of body mass index for purposes of drug dosing, the eGFR should be multiplied by the estimated BMI. CHEM PANEL Potassium 3.4 meq/L 3.5 - 5.1 08/05 [facility] CHEM PANEL Sodium Lvl 139 meq/L 135 - 145 08/05 [facility] CHEM PANEL CO2 28 meq/L 24 - 32 08/05 [facility] CHEM PANEL Chloride Lvl 104 meq/L 95 - 109 08/05 [facility] CHEM PANEL Calcium Lvl 8.7 mg/dL 8.5 - 10.5 08/05 [facility] CHEM PANEL Glucose Lvl 89 mg/dL 70 - 99 08/05 5Interpretive Data: Adult reference range values reflect the clinical guidelines of the [place] [employer]. [facility] CHEM PANEL BUN 15 mg/dL 7 - 22 08/05 [facility] CHEM PANEL Creatinine 0.8 mg/dL 0.5 - 1.4 08/05 [facility] CHEM PANEL AGAP 10.4 meq/L 10.0 - 08/05 [facility] 20.0 [facility] CHEM PANEL Phosphorus 3.8 mg/dL 2.5 - 4.5 08/05 [facility] HEMATOLOGY Platelet 204 K/CMM 133 - 450 08/05 [facility] HEMATOLOGY PTT 30.9 s 22.9 - 08/05 13Interpretiv [facility] 35.8 e Data: [facility] Therapeutic Range: 57 - 92 Seconds IMMUNOLOGY Treponemal Non Reactive Non 08/05 [facility] Scr Reactive Medical *NA* Center (08/05/14 2:32 AM) PARATHYROI Ca Norm WB 1.12 1.05 - 08/05 [facility] D PROFILE mMol/L 1. [facility] PARATHYROI Ca Ion WB 1.13 1.05 - 08/05 [facility] D PROFILE mMol/L 1. [facility] BACTERIAL MRSA by PCR Negative 08/04 15Interpretive Data: Interpretive Data: The Donna LightCycler MRSA assay is a qualitative test for the direct detection of nasal colonization with methicillin-resistant Staphylococcus aureus (MRSA) to aid in the prevention and control of MRSA infections in healthcare settings. A positive result does not indicate an infection or require treatment. A negative result does not exclude colonization or infection. [facility] (08/04/14 12:26 PM) [place] The polymerase chain reaction (PCR) assay detects a proprietary sequence indicative of the integration of the SCCmec cassette into the Staphylococcus aureus chromosome, indicating the presence of MRSA D NA. The assay utilizes FDA cleared IVD reagents. Performance characteristics have been verified by the [facility] within the [facility]. The [facility] Labor atory is authorized under the Clinical Laboratory Improvement Amendment of 1988 (CLIA-88) to perform high complexity testing. CHEM PANEL Lactic Acid 2.0 mMol/L 0.5 - 2.2 08/04 [facility] CHEM PANEL Magnesium 2.4 mg/dL 1.8 - 2.4 08/04 [facility] CHEM PANEL Phosphorus 4.7 mg/dL 2.5 - 4.5 08/04 [facility] CHEM PANEL eGFR 102 08/04 3Result Comment: The eGFR is calculated using the CKD-EPI formula. In most young, healthy individuals the eGFR will be > 90 mL/min/1.73m2. The eGFR declines with age. An eGFR of 60-89 may be normal in mL/min/1. some populations, particularly the elderly, for whom the CKD-EPI formula has not been extensively validated. Use of the eGFR is not recommended in the following populations: [address] Individuals with unstable creatinine concentrations, including patients and those with serious co-morbid conditions. Patients with extremes in muscle mass or diet. The data above are obtained from the National Kidney Disease Education Program (NKDEP) which additionally recommends that when the eGFR is used in patients with extremes of body mass index for purposes of drug dosing, the eGFR should be multiplied by the estimated BMI. CHEM PANEL CO2 24 meq/L 24 - 32 08/04 [facility] CHEM PANEL Bili Total 1.0 mg/dL 0.2 - 1.3 08/04 [facility] CHEM PANEL Alk Phos 69 unit/L 39 - 136 08/04 [facility] CHEM PANEL AST 27 unit/L 0 - 37 08/04 [facility] CHEM PANEL ALT 37 unit/L 0 - 65 08/04 [facility] CHEM PANEL Albumin Lvl 4.6 g/dL 3.5 - 5.0 08/04 [facility] CHEM PANEL Total 8.0 g/dL 6.4 - 8.4 08/04 [facility] CHEM PANEL Calcium Lvl 9.4 mg/dL 8.5 - 10.5 08/04 [facility] CHEM PANEL BUN 20 mg/dL 7 - 22 08/04 [facility] CHEM PANEL Glucose Lvl 69 mg/dL 70 - 99 08/04 6Interpretive Data: Adult reference range values reflect the clinical guidelines of the [place] [employer]. [facility] CHEM PANEL Creatinine 1.0 mg/dL 0.5 - 1.4 08/04 [facility] CHEM PANEL Chloride Lvl 111 meq/L 95 - 109 08/04 [facility] CHEM PANEL Sodium Lvl 144 meq/L 135 - 145 08/04 [facility] CHEM PANEL Potassium 3.6 meq/L 3.5 - 5.1 08/04 Lvl [facility] CHEM PANEL AGAP 12.6 meq/L 10.0 - 08/04 20.0 [facility] CHEM PANEL A/G Ratio 1.4 0.7 - 1.6 08/04 [facility] CHEM PANEL Globulin 3.4 g/dL 2.0 - 4.0 08/04 [facility] CHEM PANEL B/C Ratio 20 6 - 25 08/04 [facility] DRUG Cannab Qnt See Note 9 08/04 9Result Comment: Medical (08/04/14 12:22 PM) Carboxy-THC: Center 314 ng/mL DRUG Cutoff See Note 8 08/04 8Interpretive Data: Cutoff (lowest detectable by EIA) values for Serum Drugscreen: THC and PCP: 1 ng/mL [facility] (08/04/14 12:22 PM) All others: 20 ng/mL Center Cutoff (lowest detectable by GC/MS) value for confirmation: THC and PCP: 1 ng/mL Benzodiazepines: 5 ng/ml All others: 10 ng/ml Test performed by [facility] [address] [place] [address] DRUG Propoxyphn Negative Negative 08/04 Medical (08/04/14 12:22 PM) Center DRUG PCP Scr Negative Negative 08/04 Medical (08/04/14 12:22 PM) Center DRUG Opiate Scr Negative Negative 08/04 Medical (08/04/14 12:22 PM) Center DRUG Methadone Negative Negative 08/04 Medical (08/04/14 12:22 PM) Center DRUG Cocaine Scr Negative Negative 08/04 Medical (08/04/14 12:22 PM) Center DRUG Dania Scr Negative Negative 08/04 Medical (08/04/14 12:22 PM) Center DRUG Benzodiaz Negative Negative 08/04 Medical (08/04/14 12:22 PM) Center DRUG Cannab Scr Positive Negative 08/04 Medical *ABN* Center (08/04/14 12:22 PM) DRUG Amph Scr Negative Negative 08/04 Medical (08/04/14 12:22 PM) Center DRUG U Propoxyph Negative Negative 08/04 Medical *NA* Center (08/04/14 12:22 PM) DRUG U Methadone Negative Negative 08/04 Medical *NA* Center (08/04/14 12:22 PM) DRUG U Phencyc Negative Negative 08/04 Medical *NA* Center (08/04/14 12:22 PM) DRUG U Opiate Scr Negative Negative 08/04 Medical *NA* Center (08/04/14 12:22 PM) DRUG U Cannab Scr Positive Negative 08/04 Medical *ABN* Center (08/04/14 12:22 PM) DRUG U Amph Scr Positive Negative 08/04 Medical *ABN* Center (08/04/14 12:22 PM) DRUG U Benzodia Negative Negative 08/04 Medical *NA* Center (08/04/14 12:22 PM) DRUG U Dania Scr Negative Negative 08/04 Medical *NA* Center (08/04/14 12:22 PM) DRUG U Cocaine Negative Negative 08/04 [place] [facility] *NA* Center (08/04/14 12:22 PM) DRUG UDS Note See Note 7 08/04 7Interpretive Data: Drugs reported as positive have not been confirmed by a second method and should be used for medical purposes only. To order Medical (08/04/14 12:22 PM) confirmation, contact laboratory. Center note: Below are cut-off concentrations for all urine drugs of abuse performed in the laboratory. Some drugs listed in the table may not be included in this panel. Description Cut-off concentration Amphetamine 1000 ng/mL Barbiturates 200 ng/mL Benzodiazepines 300 ng/mL Cocaine metabolites 300 ng/mL Opiates 300 ng/mL Phencyclidine 25 ng/mL Propoxyphene 300 ng/mL Marijuana metabolites 50 ng/mL Methadone 300 ng/mL Urine alcohol 20 mg/dL HEMATOLOGY Basophils # 0.1 K/CMM 0.0 - 0.2 08/04 [facility] HEMATOLOGY Basophils 0.7 % 0.0 - 1.0 08/04 [facility] HEMATOLOGY Segs-Bands # 5.8 K/CMM 1.5 - 8.1 08/04 [facility] HEMATOLOGY Lymphocytes 2.1 K/CMM 1.0 - 5.5 08/04 [facility] HEMATOLOGY Monocytes # 1.0 K/CMM 0.0 - 0.8 08/04 [facility] HEMATOLOGY Eosinophils 0.1 K/CMM 0.0 - 0.5 08/04 [facility] HEMATOLOGY Segs 64.1 % 45.0 - 08/04 75.0 [facility] HEMATOLOGY Lymphocytes 23.2 % 20.0 - 08/04 40.0 /2013 [facility] HEMATOLOGY Monocytes 11.4 % 2.0 - 12.0 08/04 [facility] HEMATOLOGY Eosinophils 0.6 % 0.0 - 4.0 08/04 [facility] HEMATOLOGY WBC 9.0 K/CMM 3.7 - 10.4 08/04 [facility] HEMATOLOGY Hct 46.8 % 42.0 - 08/04 54.0 [facility] HEMATOLOGY Hgb 16.0 g/dL 14.0 - 08/04 18.0 [facility] HEMATOLOGY RBC 5.11 M/CMM 4.70 - 08/04 6.10 [facility] HEMATOLOGY Platelet 249 K/CMM 133 - 450 08/04 [facility] HEMATOLOGY MPV 8.2 fL 7.4 - 10.4 08/04 [facility] HEMATOLOGY RDW 12.6 % 11.5 - 08/04 14.5 /2013 [facility] HEMATOLOGY MCV 91.6 fL 80.0 - 08/04 94.0 [facility] HEMATOLOGY MCH 31.2 pg 27.0 - 08/04 31.0 [facility] HEMATOLOGY MCHC 34.1 g/dL 32.0 - 08/04 36.0 /2013 [facility] HEMATOLOGY PTT 30.9 s 22.9 - 08/04 14Interpretiv [facility] 35. e Data: Medical Heparin Center Therapeutic Range: 57 - 92 Seconds HEMATOLOGY PT 14.1 s 12.0 - 08/04 [place] 14.7 [facility] HEMATOLOGY INR 1.08 0.85 - 08/04 12Interpretive Data: RECOMMENDED RANGES FOR PROTIME INR: [facility] . 2.0-3.0 for most medical and surgical thromboembolic states. Medical 2.5-3.5 for artificial heart valves and recurrent embolism. Center INR SHOULD BE USED ONLY FOR PATIENTS ON STABLE ANTICOAGULANT THERAPY. IMMUNOLOGY HIV 1/2 Ab Negative Negative 08/04 [facility] *NA* [place] (08/04/14 12:22 PM) PARATHYROI Ca Norm WB 1.16 1.05 - 08/04 [facility] D PROFILE mMol/L 1. [facility] PARATHYROI Ca Ion WB 1.19 1.05 - 08/04 [facility] D PROFILE mMol/L 1. [facility] TOXICOLOGY Ethanol Lvl null 08/04 11Interpretive Data: Negative Range: <3 mg/dL Toxic Range: >250 mg/dL [facility] TOXICOLOGY Etoh (%) null 08/04 10Interpretive Data: Ethanol testing results should be used for medical purposes only. Negative Range: <0.003% Medical Toxic Range: >0.25% [place] URINE AND UA <=1.0 0.1 - 1.0 08/04 [facility] Urobilinogen mg/dL [facility] URINE AND Micro? Performed 08/04 [facility] *NA* [place] (08/04/14 12:22 PM) URINE AND UA Mucus Few /LPF None Seen 08/04 [facility] STOOL /LPF /2013 [facility] URINE AND UA Blood Small Negative 08/04 [facility] *ABN* [place] (08/04/14 12:22 PM) URINE AND UA Bili Negative Negative 08/04 [facility] *NA* [place] (08/04/14 12:22 PM) URINE AND UA Ketones Negative Negative 08/04 [facility] mg/dL mg/dL [facility] URINE AND UA Glucose Negative Negative 08/04 [facility] mg/dL mg/dL [facility] URINE AND UA pH 5.5 5.0 - 8.0 08/04 [facility] URINE AND UA Protein Negative Negative 08/04 [facility] mg/dL mg/dL [facility] URINE AND UA Turbidity Clear Clear 08/04 [facility] (08/04/14 12:22 PM) [place] URINE AND UA Spec Grav 1.014 <=1.030 08/04 [facility] URINE AND UA Color Yellow Yellow 08/04 [facility] Medical *NA* Center (08/04/14 12:22 PM) URINE AND UA Bacteria Occasional None Seen 08/04 [facility] STOOL /HPF /HPF /2013 [facility] URINE AND UA RBC 2 /HPF 0 - 2 08/04 [facility] URINE AND UA WBC 30 /HPF 0 - 5 08/04 [facility] URINE AND UA Leuk Est Moderate Negative 08/04 [facility] *ABN* Center (08/04/14 12:22 PM) URINE AND UA Sq Epi Few /LPF Few /LPF 08/04 [facility] URINE AND UA Nitrite Negative Negative 08/04 [facility] (08/04/14 12:22 PM) [place] Vital Signs Vital Sign Value Date Comments Source Respitory Rate 17 08/22/2017 [facility] Heart Rate 63 08/22/2017 [facility] Systolic (mm Hg) 122 08/22/2017 [facility] Diastolic (mm Hg) 70 08/22/2017 [facility] Temperature Oral (F) 98.7 F 08/22/2017 [facility] Systolic (mm Hg) 116 08/22/2017 [facility] Diastolic (mm Hg) 70 08/22/2017 [facility] Respitory Rate 18 08/22/2017 [facility] Heart Rate 61 08/22/2017 [facility] Respitory Rate 18 08/22/2017 [facility] Heart Rate 60 08/22/2017 [facility] Systolic (mm Hg) 121 08/22/2017 [facility] Diastolic (mm Hg) 74 08/22/2017 [facility] Temperature Oral (F) 98 F 08/22/2017 [facility] Temperature Oral (F) 98 F 08/22/2017 [facility] Weight 75 08/22/2017 [facility] Height 167.64 cm 08/22/2017 [facility] BMI Calculated 26.69 08/22/2017 [facility] Systolic (mm Hg) 119 10/03/2016 [facility] Diastolic (mm Hg) 63 10/03/2016 [facility] Respitory Rate 20 10/03/2016 [facility] Heart Rate 70 10/03/2016 [facility] Temperature Oral (F) 98.2 F 10/03/2016 [facility] Respitory Rate 20 10/03/2016 [facility] Heart Rate 68 10/03/2016 [facility] Systolic (mm Hg) 97 10/03/2016 [facility] Diastolic (mm Hg) 55 10/03/2016 [facility] Respitory Rate 20 10/03/2016 [facility] Heart Rate 80 10/03/2016 [facility] Systolic (mm Hg) 109 10/03/2016 [facility] Diastolic (mm Hg) 57 10/03/2016 [facility] Temperature Oral (F) 98.4 F 10/03/2016 [facility] Temperature Oral (F) 98.4 F 10/03/2016 [facility] Height 185.42 cm 10/03/2016 [facility] Weight 79.545 10/03/2016 [facility] BMI Calculated 23.14 10/03/2016 [facility] Temperature Oral (F) 98.6 F 03/14/2015 [facility] Heart Rate 89 03/14/2015 [facility] Center Respitory Rate 22 03/14/2015 [facility] Center Systolic (mm Hg) 134 03/14/2015 [facility] Center Diastolic (mm Hg) 91 03/14/2015 [facility] Heart Rate 70 03/13/2015 [facility] Temperature Oral (F) 98.0 F 03/13/2015 [facility] Center Respitory Rate 18 03/13/2015 [facility] Center Systolic (mm Hg) 106 03/13/2015 [facility] Center Diastolic (mm Hg) 72 03/13/2015 [facility] Center Systolic (mm Hg) 128 03/13/2015 [facility] Center Diastolic (mm Hg) 84 03/13/2015 [facility] Respitory Rate 20 03/13/2015 [facility] Temperature Oral (F) 98.3 F 03/13/2015 [facility] Heart Rate 63 03/12/2015 [facility] Weight 75 02/21/2015 [facility] BMI Calculated 22.42 02/21/2015 [facility] Height 182.88 cm 02/21/2015 [facility] Temperature Oral (F) 97.6 F 02/20/2015 [facility] Center Systolic (mm Hg) 120 02/20/2015 [facility] Diastolic (mm Hg) 60 02/20/2015 [facility] Systolic (mm Hg) 140 02/20/2015 [facility] Center Diastolic (mm Hg) 73 02/20/2015 [facility] Temperature Oral (F) 97.6 F 02/20/2015 [facility] Systolic (mm Hg) 119 02/20/2015 [facility] Diastolic (mm Hg) 60 02/20/2015 [facility] Temperature Oral (F) 97 F 02/20/2015 [facility] Respitory Rate 18 02/20/2015 [facility] Respitory Rate 18 02/20/2015 [facility] Respitory Rate 18 02/20/2015 [facility] BMI Calculated 22.34 02/10/2015 [facility] Weight 74.7 02/10/2015 [facility] Height 182.88 cm 02/10/2015 [facility] Diastolic (mm Hg) 80 08/10/2014 [facility] Systolic (mm Hg) 122 08/10/2014 [facility] Respitory Rate 16 08/10/2014 [facility] Heart Rate 75 08/10/2014 [facility] Temperature Oral (F) 98.5 F 08/10/2014 [facility] Temperature Oral (F) 98.6 F 08/10/2014 [facility] Heart Rate 76 08/10/2014 [facility] Respitory Rate 18 08/10/2014 [facility] Diastolic (mm Hg) 80 08/10/2014 [facility] Systolic (mm Hg) 132 08/10/2014 [facility] Temperature Oral (F) 98.7 F 08/09/2014 [facility] Heart Rate 72 08/09/2014 [facility] Respitory Rate 18 08/09/2014 [facility] Diastolic (mm Hg) 80 08/09/2014 [facility] Systolic (mm Hg) 122 08/09/2014 [facility] BMI Calculated 23.85 08/04/2014 [facility] Weight 82 08/04/2014 [facility] Height 185.42 cm 08/04/2014 [facility] Encounters Location Location Encounter Encounter Reason Attending ADM DC Status Source Details Type Number For Provider Date Date Visit [facility] Inpatient [id number] Carmelo 08/04 08/10 [facility] Xavi Leone /2013 [facility] Inpatient [id number] José Miguel 02/10 02/20 Bridget Lr /2014 [facility] Inpatient [id number] Rk 02/21 03/14 Bridget Farrell /2014 [facility] Emergency [id number] Ronald 10/03 10/03 Xavi Araon /2016 [facility] Emergency [id number] Miguelito 08/22 08/22 Xavi Wright /2017 [facility] Procedures Procedure Code Date Perfomer Comments Source Thoracentesis, 85493 02/15/2015 [facility] needle or [facility] catheter, aspiration of the pleural space; with imaging guidance
--- OUTSIDE RECORDS SUMMARY | 2018-08-20 11:07 | XMS REPORT | Summary of Care ---
:1985 Author Encounter JOCE Kahn(HARRY) [id number] Date(s): 02/10/15 - 02/20/[address] Professional Services provided by [facility] [place] [address]- Discharge Disposition: DC/DISC TO REHAB Physician Attending: José Miguel Lr MD Physician Admitting: José Miguel Lr MD Vital Signs Most recent to oldest 1 2 3 [Reference Range]: Height 182.88 cm (02/10/15 11:48 AM) Temperature Oral [96.4-99.1 97.6 DegF 97.6 DegF 97 DegF DegF] (02/20/15 4:00 PM) (02/20/15 11:04 AM) (02/20/15 8:00 AM) Blood Pressure [90-140/60-90 120/60 mmHg 140/73 mmHg 119/60 mmHg mmHg] (02/20/15 4:00 PM) (02/20/15 1:00 PM) (02/20/15 8:00 AM) Respiratory Rate [14-20 BRMIN] 18 BRMIN 18 BRMIN 18 BRMIN (02/20/15 5:00 AM) (02/20/15 2:00 AM) (02/20/15 1:00 AM) Weight 74.7 kg (02/10/15 11:48 AM) Body Mass Index 22.34 m2 (02/10/15 11:48 AM) Problem List Condition Effective Dates Status Health Status Informant Adult ADHD(Confirmed) Resolved Anxiety(Confirmed) Resolved Bipolar(Confirmed) Resolved Depression(Confirmed) Resolved Schizoaffective disorder(Confirmed) Resolved Seizure disorder(Confirmed) Resolved Allergies, Adverse Reactions, Alerts Substance Reaction Severity Status NKDA Active Medications acetaminophen 650 mg, 2 tab, Route: PO, Drug form: TAB, Q6H, Dosing Weight 74.7, kg, PRN For Temp > 101 F, Start date: 02/11/15 19:44:00, Duration: 30 day, Stop date: 19:43:00 Notes: Do not exceed 4 gm/day. (Same as: Tylenol) Start Date: 02/11/15 Stop Date: 02/20/15 Status: Discontinuedacetaminophen 325 mg oral tablet 650 mg=2 tab, PO, Q6H, PRN For Temp > 101 F, 0 Refill(s) Start Date: 02/20/15 Status: SuspendedAdderall 30 mg oral tablet 30 mg=1 tab, PO, TID, 0 Refill(s) Start Date: 02/10/15 Stop Date: 02/20/15 Status: DiscontinuedAtivan 1 mg, Route: PO, TID, Dosing Weight 74.7, kg, PRN as needed for anxiety, Start date: 02/10/15 15:45:00, Duration: 30 day, Stop date: 03/12/15 15:44:00 Start Date: 02/10/15 Stop Date: 02/10/15 Status: Discontinuedbisacodyl 10 mg, 1 supp, Route: PA, Drug form: SUPP, Daily, Dosing Weight 74.7, kg, PRN Constipation, Start date: 02/11/15 17:24:00, Duration: 30 day, Stop date: 17:23:00 Notes: (Same As: Dulcolax, Bisco-Lax) Start Date: 02/11/15 Stop Date: 02/20/15 Status: Discontinuedbisacodyl 10 mg rectal suppository 10 mg=1 supp, PA, Daily, PRN Constipation, 0 Refill(s) Start Date: 02/20/15 Status: Suspendedcalcium gluconate + Sodium Chloride 0.9% IV 100 mL 3 gm, 30 mL, Route: IVPB, PRN, Dosing Weight 74.7, kg, PRN Abnormal Lab Result, For NON-ICU PatientsOnly., Start date: 02/11/15 9:35:00, Duration: 30 day, Stop date: 03/13/15 9:34:00 Start Date: 02/11/15 Stop Date: 02/20/15 Status: Discontinuedcalcium gluconate + Sodium Chloride 0.9% IV 80 mL 2 gm, 20 mL, Route: IVPB, PRN, Dosing Weight 74.7, kg, PRN Abnormal Lab Result, For NON-ICU PatientsOnly., Start date: 02/11/15 9:35:00, Duration: 30 day, Stop date: 03/13/15 9:34:00 Start Date: 02/11/15 Stop Date: 02/20/15 Status: DiscontinuedceFAZolin 2 gm, 100 mL, Route: IVPB, Drug form: INJ, ABXQ8H, Dosing Weight 74.7, kg, Start date: 02/15/15 13:00:00, Duration: 30 day, Stop date: 03/17/15 5:00:00 Notes: Same as: Ancef Start Date: 02/15/15 Stop Date: 02/20/15 Status: DiscontinuedceFAZolin 1 g/50 mL intravenous solution 2 gt=216 mL, IVPB, ABXQ8H, 0 Refill(s) Start Date: 02/20/15 Status: SuspendedclonazePAM 2 mg oral tablet 2 mg=1 tab, PO, TID, 0 Refill(s) Start Date: 02/20/15 Status: SuspendedDilaudid 1 mg, 0.5 mL, Route: IVP, Drug form: INJ, ONCE, Dosing Weight 74.7, kg, Priority : STAT, Start date: 02/15/15 18:42:00, Stop date: 02/15/15 18:42:00 Notes: Same as: Dilaudid Start Date: 02/15/15 Stop Date: 02/15/15 Status: CompletedDilaudid 0.5 mg, 0.25 mL, Route: IVP, Drug form: INJ, ONCE, Dosing Weight 74.7, kg, Priority: STAT, Start date: 02/19/15 18:20:00, Stop date: 02/19/15 18:20:00 Notes: Same as: Dilaudid Start Date: 02/19/15 Stop Date: 02/19/15 Status: CompletedDilaudid 0.2 mg, 0.1 mL, Route: IV, Drug form: INJ, Q4H, Dosing Weight 74.7, kg, PRN Pain Score 7-10, Start date: 02/14/15 15:09:00, Duration: 30 day, Stop date: 15:08:00 Notes: Same as: Dilaudid Start Date: 02/14/15 Stop Date: 02/17/15 Status: DiscontinuedDilaudid 0.5 mg, 0.25 mL, Route: IV, Drug form: INJ, Q3H, Dosing Weight 74.7, kg, PRN Pain Score 7-10, Start date: 02/17/15 10:25:00, Duration: 30 day, Stop date: 10/29 10:24:00 Notes: Same as: Dilaudid Start Date: 02/17/15 Stop Date: 02/19/15 Status: Discontinueddocusate 100 mg, 1 cap, Route: PO, Drug form: CAP, Daily, Dosing Weight 74.7, kg, Start date: 02/11/15 17:45:00, Duration: 30 day, Stop date: 03/13/15 9:00:00 Notes: (Same as: Colace) (Do Not Crush) Start Date: 02/11/15 Stop Date: 02/20/15 Status: Discontinueddocusate sodium 100 mg oral capsule 100 mg=1 cap, PO, Daily, 0 Refill(s) Start Date: 02/20/15 Status: Suspendedflumazenil 0.2 mg, 2 mL, Route: IVP, Drug form: INJ, PRN, Dosing Weight 74.7, kg, PRN Benzodiazepine Reversal, Initial dose, Start date: 02/13/15 8:48:00, Stop date: 02/14/15 9:00:00 Notes: (Same as: Romazicon) Start Date: 02/13/15 Stop Date: 02/13/15 Status: Discontinuedfolic acid 1 mg, 1 tab, Route: PO, Drug form: TAB, Daily, Dosing Weight 74.7, kg, Start date: 02/12/15 9:00:00,Duration: 30 day, Stop date: 03/13/15 9:00:00 Notes: (Same as: Folvite) Start Date: 02/12/15 Stop Date: 02/20/15 Status: Discontinuedfolic acid 1 mg oral tablet 1 mg=1 tab, PO, Daily, 0 Refill(s) Start Date: 02/20/15 Status: Suspendedgabapentin 300 mg oral capsule 300 mg=1 cap, PO, TID, # 90 cap, 0 Refill(s) Start Date: 02/10/15 Stop Date: 02/20/15 Status: Discontinuedheparin 5,000 unit, 1 mL, Route: SUB-Q, Drug form: INJ, Q8H, Dosing Weight 74.7, kg, Start date: 02/11/15 16:00:00, Duration: 30 day, Stop date: 03/13/15 8:00:00 Notes: porcine heparin Start Date: 02/11/15 Stop Date: 02/20/15 Status: Discontinuedhydromorphone 0.2 mg, Route: IV, ONCE, Dosing Weight 74.7, kg, Start date: 02/10/15 19:31:00, Stop date: 02/10/15 19:31:00 Start Date: 02/10/15 Stop Date: 02/10/15 Status: CompletedHYDROmorphone 0.5mg/mL SHOE SALESPERSON (15mg/30 mL) 15 mg 15 mg, 30 mL, Route: IV, Initial Loading Dose: 0.4mg, SHOE SALESPERSON Dose: 0.2 mg, SHOE SALESPERSON Lockout: 10 minutes, Continuous Basal Rate: 0 mg, 4 Hour Limit (In MG): 6, Drug Form: INJ, Continuous, Start date: 02/15/15 18:30:00, Duration: 30 day, Stop date: 03/17/15 18:... Notes: (Same as: Dilaudid) conc=0.5 mg/mlHydromorphone SHOE SALESPERSON Dose: ;Delay : ;Basal: Start Date: 02/15/15 Stop Date: 02/20/15 Status: DiscontinuedHYDROmorphone 0.5mg/mL SHOE SALESPERSON (15mg/30 mL) 15 mg 15 mg, 30 mL, Route: IV, Initial Loading Dose: 0.4mg, SHOE SALESPERSON Dose: 0.2 mg, SHOE SALESPERSON Lockout: 10 minutes, Continuous Basal Rate: 0 mg, 4 Hour Limit (In MG): 6, Drug Form: INJ, Continuous, Start date: 02/10/15 19:00:00, Duration: 30 day, Stop date: 03/12/15 18:... Notes: (Same as: Dilaudid) conc=0.5 mg/mlHydromorphone SHOE SALESPERSON Dose: ;Delay : ;Basal: Start Date: 02/10/15 Stop Date: 02/14/15 Status: Discontinuedibuprofen 600 mg, 1 tab, Route: PO, Drug form: TAB, Q6H, Dosing Weight 74.7, kg, PRN Pain Score 1-3, Priority:NOW, Start date: 02/20/15 15:40:00, Duration: 30 day, Stop date: 03/22/15 15:39:00 Notes: (Same as: Motrin)"Do Not Crush" Take with food. Start Date: 02/20/15 Stop Date: 02/20/15 Status: DiscontinuedKlonoPIN 2 mg, 1 tab, Route: PO, Drug form: TAB, TID, Dosing Weight 74.7, kg, Start date : 02/09/15 22:00:00, Duration: 30 day, Stop date: 03/11/15 16:00:00 Notes: (Same As: KlonoPIN) Start Date: 02/09/15 Stop Date: 02/20/15 Status: DiscontinuedKlonoPIN 2 mg oral tablet 2 mg=1 tab, PO, TID, # 90 tab, 0 Refill(s) Start Date: 02/10/15 Stop Date: 02/20/15 Status: Discontinuedlidocaine 1% 5 mL, Route: INTRADERM, Drug Form: INJ, Dosing Weight 74.7, kg, ONCALL, Start date: 02/14/15 15:00:00, Duration: 30 day, Stop date: 03/16/15 14:59:00 Notes: (Same as: Xylocaine) Start Date: 02/14/15 Stop Date: 02/15/15 Status: Discontinuedlidocaine 1% 5 mL, Route: INTRADERM, Drug Form: INJ, Dosing Weight 74.7, kg, ONCALL, Start date: 02/15/15 10:00:00, Duration: 1 day, Stop date: 02/16/15 9:59:00 Notes: (Same as: Xylocaine) Start Date: 02/15/15 Stop Date: 02/15/15 Status: Completedmagnesium oxide 800 mg, 2 tab, Route: PO, Drug form: TAB, PRN, Dosing Weight 74.7, kg, PRN Abnormal Lab Result, For NON-ICU Patients Only., Start date: 02/11/15 9:35:00, Duration: 30 day, Stop date: 03/13/15 9:34:00 Notes: (Same as: Mag-Ox 400)Magnesium oxide 383hk=185mh elemental magnesiumDose= ____mg magnesium oxide (___mg elemental magnesium) Start Date: 02/11/15 Stop Date: 02/20/15 Status: Discontinuedmagnesium sulfate 2 gm, 50 mL, Route: IVPB, Drug form: INJ, PRN, Dosing Weight 74.7, kg, PRN Abnormal Lab Result, For NON-ICU Patients Only., Start date: 02/11/15 9:35:00, Duration: 30 day, Stop date: 03/13/15 9:34:00 Start Date: 02/11/15 Stop Date: 02/20/15 Status: Discontinuedmagnesium sulfate 1 gm, 100 mL, Route: IVPB, Drug form: INJ, PRN, Dosing Weight 74.7, kg, PRN Abnormal Lab Result, ForNON-ICU Patients Only., Start date: 02/11/15 9:35:00, Duration: 30 day, Stop date: 03/13/15 9:34:00 Start Date: 02/11/15 Stop Date: 02/20/15 Status: DiscontinuedMerrem 500 mg, Route: IVPB, Drug form: PDR/INJ, ABXQ6H, Dosing Weight 74.7, kg, CrCL >= 50ml/min, Extended infusion, infuse over 3 hours, Start date: 02/10/15 16:00:00 , Duration: 30 day, Stop date: 03/12/15 10:00:00 Notes: Same as Merrem MEDICATION WASTE Product Size: 500 mgProduct Wasted: ___ mg Start Date: 02/10/15 Stop Date: 02/15/15 Status: Discontinuedmetoprolol 5 mg/5 ml INJ 2.5 mg, 2.5 mL, Route: IVP, Drug form: INJ, Q6H, Dosing Weight 74.7, kg, PRN Hypertension, Start date: 02/11/15 9:38:00, Duration: 30 day, Stop date: 9:37:00 Notes: (Same as: Lopressor)Push over 2 minutes Start Date: 02/11/15 Stop Date: 02/20/15 Status: Discontinuedmidazolam 1 mg, 1 mL, Route: IVP, Drug form: INJ, Q5Min, Dosing Weight 74.7, kg, PRN Anxiety, Start date: 02/13/15 8:48:00, Duration: 2 doses or times, Stop date: 9:00:00 Notes: (Same as: Versed) MEDICATION WASTE Product Size: 2 mgProduct Wasted: ___ mg Start Date: 02/13/15 Stop Date: 02/13/15 Status: Completedmultivitamin 1 tab, PO, Daily, 0 Refill(s) Start Date: 02/20/15 Status: Suspendedmultivitamin 1 tab, Route: PO, Drug Form: TAB, Dosing Weight 74.7, kg, Daily, Start date: 9:00:00, Duration: 30 day, Stop date: 03/13/15 9:00:00 Notes: (Same as:Thera) Take with food. Start Date: 02/12/15 Stop Date: 02/20/15 Status: Discontinuednaloxone 0.04 mg, 0.1 mL, Route: IVP, Drug form: INJ, Q2MIN, Dosing Weight 74.7, kg, PRN Narcotic Reversal, Start date: 02/15/15 18:24:00, Duration: 30 day, Stop date: 03/17/15 18:23:00 Notes: Same as Narcan Start Date: 02/15/15 Stop Date: 02/20/15 Status: Discontinuednaloxone 0.04 mg, 0.1 mL, Route: IVP, Drug form: INJ, Q2MIN, Dosing Weight 74.7, kg, PRN Narcotic Reversal, Start date: 02/10/15 18:55:00, Duration: 30 day, Stop date: 03/12/15 18:54:00 Notes: Same as Narcan Start Date: 02/10/15 Stop Date: 02/20/15 Status: Discontinuednaloxone 0.04 mg, 0.1 mL, Route: IVP, Drug form: INJ, Q2MIN, Dosing Weight 74.7, kg, PRN Narcotic Reversal, Start date: 02/13/15 8:48:00, Duration: 8 doses or times, Stop date: 02/14/15 9:00:00 Notes: Same as Narcan Start Date: 02/13/15 Stop Date: 02/13/15 Status: DiscontinuedNorco 10/325 oral tablet 2 tab, Route: PO, Drug Form: TAB, Dosing Weight 74.7, kg, Q6H, PRN Pain Score 7- 10, Start date: 02/19/15 18:24:00, Duration: 30 day, Stop date: 03/21/15 18:23: 00 Notes: Do not exceed 4gm/day of acetaminophen. (Same as: [place] 325/10) Start Date: 02/19/15 Stop Date: 02/20/15 Status: DiscontinuedNorco 10/325 oral tablet 1 tab, Route: PO, Drug Form: TAB, Dosing Weight 74.7, kg, Q4H, PRN Pain Score 1- 3, Start date: 02/19/15 18:24:00, Duration: 30 day, Stop date: 03/21/15 18:23:00 Notes: Do not exceed 4gm/day of acetaminophen. (Same as: [place] 325/10) Start Date: 02/19/15 Stop Date: 02/20/15 Status: DiscontinuedNorco 10/325 oral tablet 2 tab, PO, Q6H, PRN Pain Score 7-10, 0 Refill(s) Start Date: 02/20/15 Status: SuspendedNorco 10/325 oral tablet 1 tab, PO, Q4H, PRN Pain Score 1-3, 0 Refill(s) Start Date: 02/20/15 Status: SuspendedNorco 5/325 oral tablet 2 tab, Route: PO, Drug Form: TAB, Dosing Weight 74.7, kg, Q4H, PRN Pain Score 4- 6, Start date: 02/11/15 13:39:00, Duration: 30 day, Stop date: 03/13/15 13:38:00 Notes: (Same as: [place] 325/5) Do not exceed 4gm/day of acetaminophen. Start Date: 02/11/15 Stop Date: 02/17/15 Status: DiscontinuedNorco 5/325 oral tablet 1 tab, Route: PO, Drug Form: TAB, Dosing Weight 74.7, kg, Q4H, PRN Pain Score 1- 3, Start date: 02/11/15 13:39:00, Duration: 30 day, Stop date: 03/13/15 13:38:00 Notes: (Same as: [place] 325/5) Do not exceed 4gm/day of acetaminophen. Start Date: 02/11/15 Stop Date: 02/19/15 Status: DiscontinuedNorco 5/325 oral tablet 1 tab, Route: PO, Drug Form: TAB, Dosing Weight 74.7, kg, Q6H, PRN Pain Score 1- 3, Start date: 02/19/15 17:54:00, Duration: 30 day, Stop date: 03/21/15 17:53:00 Notes: (Same as: [place] 325/5) Do not exceed 4gm/day of acetaminophen. Start Date: 02/19/15 Stop Date: 02/19/15 Status: DiscontinuedNorco 7.5/325 oral tablet 1 tab, Route: PO, Drug Form: TAB, Dosing Weight 74.7, kg, Q4H, PRN Pain Score 4- 6, Start date: 02/17/15 10:30:00, Duration: 30 day, Stop date: 03/19/15 10:29:00 Notes: Same as [place] 325-7.5mg Do not exceed 4gm/day of acetaminophen. Start Date: 02/17/15 Stop Date: 02/19/15 Status: Discontinuedondansetron 4 mg, 2 mL, Route: IVP, Drug form: INJ, ONCE, Dosing Weight 74.7, kg, PRN Nausea & Vomiting, Start date: 02/13/15 8:48:00 Notes: (Same as: Osmani) MEDICATION WASTE Product Size: 4 mgProduct Wasted: __0_ mg Start Date: 02/13/15 Stop Date: 02/13/15 Status: Discontinuedpotassium chloride 20 mEq, 1 tab, Route: PO, Drug form: ERTAB, PRN, Dosing Weight 74.7, kg, PRN Abnormal Lab Result, For NON-ICU Patients Only, Start date: 02/11/15 9:35:00, Duration: 30 day, Stop date: 03/13/15 9:34:00 Notes: (Same as: K-Dur 20)"Do Not Crush" With food and full glass of water Start Date: 02/11/15 Stop Date: 02/20/15 Status: Discontinuedpotassium chloride 10 mEq, 50 mL, Route: IVPB, Drug form: INJ, PRN, Dosing Weight 74.7, kg, PRN Abnormal Lab Result, For NON-ICU Patients Only, Start date: 02/11/15 9:35:00, Duration: 30 day, Stop date: 03/13/15 9:34:00 Notes: (Same as: KCL) Infuse over 2 hours. Start Date: 02/11/15 Stop Date: 02/20/15 Status: Discontinuedpotassium chloride 20 mEq, 15 mL, Route: NJ, Drug form: LIQ, PRN, Dosing Weight 74.7, kg, PRN Abnormal Lab Result, For NON-ICU Patients Only, Start date: 02/11/15 9:35:00, Duration: 30 day, Stop date: 03/13/15 9:34:00 Notes: (Same as: Potassium Chloride) Start Date: 02/11/15 Stop Date: 02/20/15 Status: Discontinuedpotassium phosphate + Sodium Chloride 0.9% IV 250 mL 30 mmol, 10 mL, Route: IVPB, PRN, Dosing Weight 74.7, kg, PRN Abnormal Lab Result, For NON-ICU Patients Only., Start date: 02/11/15 9:35:00, Duration: 30 day, Stop date: 03/13/15 9:34:00 Notes: (Same as: K Phosphate.) 1 mMol phoshate has 1.47 mEq potassium Infuse over 4 hours Start Date: 02/11/15 Stop Date: 02/20/15 Status: Discontinuedpotassium phosphate + Sodium Chloride 0.9% IV 250 mL 15 mmol, 5 mL, Route: IVPB, PRN, Dosing Weight 74.7, kg, PRN Abnormal Lab Result , For NON-ICU Patients Only., Start date: 02/11/15 9:35:00, Duration: 30 day, Stop date: 03/13/15 9:34:00 Notes: (Same as: K Phosphate.) 1 mMol phoshate has 1.47 mEq potassium Infuse over 4 hours Start Date: 02/11/15 Stop Date: 02/20/15 Status: Discontinuedpotassium phosphate-sodium phosphate 250 mg-278 mg-164 mg oral powder 2 pkt, Route: PO, Drug Form: PDR/REC, Dosing Weight 74.7, kg, PRN, PRN Abnormal Lab Result, For NON-ICU Patients Only, Start date: 02/11/15 9:35:00, Duration: 30 day, Stop date: 03/13/15 9:34:00 Notes: (Same as: Neutra-Phos) Each 1.25 gm pkt has 250mg phosphorous. Mix w/ 2.5oz water and stir. Start Date: 02/11/15 Stop Date: 02/20/15 Status: DiscontinuedRestoril 30 mg, 2 cap, Route: PO, Drug form: CAP, Bedtime, Dosing Weight 74.7, kg, PRN as needed for sleep, Start date: 02/10/15 16:02:00, Duration: 30 day, Stop date : 03/12/15 16:01:00 Notes: (Same As: Restoril) Start Date: 02/10/15 Stop Date: 02/13/15 Status: DiscontinuedRestoril 30 mg oral capsule 30 mg=1 cap, PO, Bedtime, PRN Sleep, 0 Refill(s) Start Date: 02/10/15 Stop Date: 02/11/15 Status: DiscontinuedRestoril 30 mg oral capsule 30 mg=1 cap, PO, Bedtime, PRN Sleep, 0 Refill(s) Start Date: 02/10/15 Stop Date: 02/11/15 Status: DiscontinuedSaline Flush 0.9% 10 mL, Route: IVP, Drug Form: INJ, Dosing Weight 74.7, kg, Q8H, Start date: 10/01 16:00:00, Duration: 30 day, Stop date: 03/17/15 8:00:00 Notes: (Same as: BD Posiflush) Start Date: 02/15/15 Stop Date: 02/20/15 Status: Discontinuedsenna 8.6 mg, 1 tab, Route: PO, Drug Form: TAB, Dosing Weight 74.7, kg, Daily, Start date: 02/11/15 17:45:00, Duration: 30 day, Stop date: 03/13/15 9:00:00 Notes: (Same as: Senokot) Start Date: 02/11/15 Stop Date: 02/20/15 Status: Discontinuedsenna 8.6 mg oral tablet 8.6 mg=1 tab, PO, Daily, 0 Refill(s) Start Date: 02/20/15 Status: Suspendedsimethicone 80 mg, 1 tab, Route: PO, Drug form: CHEWTAB, Q6H, Dosing Weight 74.7, kg, Start date: 02/16/15 12:00:00, Duration: 30 day, Stop date: 03/18/15 6:00:00 Notes: (Same as: Mylicon) Start Date: 02/16/15 Stop Date: 02/20/15 Status: DiscontinuedSodium Chloride 0.9% IV 1,000 mL + M.V.I.-12 10 mL Daily + folic acid IV 1 mg Daily + thiamine IV 1 1,000 mL, Rate: 100 ml/hr, Infuse over: 10.1 hr, Route: IV, Dosing Weight 74.7 kg, Total Volume: 1,011.2, Start date: 02/10/15 16:16:00, Duration: 3 day, Stop date: 02/13/15 16:15:00 Start Date: 02/10/15 Stop Date: 02/11/15 Status: Discontinuedsodium chloride bacteriostatic 0.9% injectable solution 5 mL, Route: INTRADERM, Drug Form: INJ, Dosing Weight 74.7, kg, ONCALL, Start date: 02/15/15 10:00:00, Duration: 1 day, Stop date: 02/16/15 9:59:00 Notes: (Same as: BD Posiflush) Start Date: 02/15/15 Stop Date: 02/20/15 Status: Discontinuedsodium phosphate + Sodium Chloride 0.9% IV 250 mL 30 mmol, 10 mL, Route: IVPB, PRN, Dosing Weight 74.7, kg, PRN Abnormal Lab Result, For NON-ICU Patients Only., Start date: 02/11/15 9:35:00, Duration: 30 day, Stop date: 03/13/15 9:34:00 Start Date: 02/11/15 Stop Date: 02/20/15 Status: Discontinuedsodium phosphate + Sodium Chloride 0.9% IV 250 mL 15 mmol, 5 mL, Route: IVPB, PRN, Dosing Weight 74.7, kg, PRN Abnormal Lab Result , For NON-ICU Patients Only., Start date: 02/11/15 9:35:00, Duration: 30 day, Stop date: 03/13/15 9:34:00 Start Date: 02/11/15 Stop Date: 02/20/15 Status: DiscontinuedTegretol 200 mg oral tablet 200 mg=1 tab, PO, BID, 0 Refill(s) Start Date: 02/10/15 Stop Date: 02/20/15 Status: Discontinuedthiamine 100 mg, 1 tab, Route: PO, Drug form: TAB, Daily, Dosing Weight 74.7, kg, Start date: 02/12/15 9:00:00, Duration: 30 day, Stop date: 03/13/15 9:00:00 Notes: (Same As: Vitamin B1) Start Date: 02/12/15 Stop Date: 02/20/15 Status: Discontinuedthiamine 100 mg oral tablet 100 mg=1 tab, PO, Daily, 0 Refill(s) Start Date: 02/20/15 Status: Suspendedtrazodone 100 mg oral tablet 100 mg, 1 tab, Route: PO, Drug form: TAB, Bedtime, Dosing Weight 74.7, kg, Start date: 02/13/15 21:00:00, Duration: 30 day, Stop date: 03/14/15 21:00:00 Notes: (Same As: Desyrel) Start Date: 02/13/15 Stop Date: 02/20/15 Status: Discontinuedtrazodone 100 mg oral tablet 100 mg=1 tab, PO, Bedtime, 0 Refill(s) Start Date: 02/20/15 Status: Suspendedtrihexyphenidyl 5 mg oral tablet 5 mg=1 tab, PO, BID, 0 Refill(s) Start Date: 02/10/15 Stop Date: 02/20/15 Status: DiscontinuedTrilafon 8 mg oral tablet 8 mg=1 tab, PO, QID, 0 Refill(s) Start Date: 02/10/15 Stop Date: 02/20/15 Status: Discontinuedvancomycin 1.5 gm, 250 mL, Route: IVPB, Drug form: INJ, [id number], Dosing Weight 74.7, kg, Start date: 02/12/15 20:00:00, Duration: 30 day, Stop date: 03/14/15 8:00:00 Notes: TIME CRITICAL MEDICATIONSame as: Vancocin-NS (premixed)Infusion rate< 1000 mg: infuse over1 [id number] - 1500 mg: infuse over 1.5 [id number] - 2000 mg: infuse over 2 hours> 2001 mg: infuse over 2.5 hours Start Date: 02/12/15 Stop Date: 02/13/15 Status: Discontinuedvancomycin 1.5 gm, 250 mL, Route: IVPB, Drug form: INJ, [id number], Dosing Weight 74.7, kg, Start date: 02/13/15 9:00:00, Duration: 30 day, Stop date: 03/15/15 1:00:00 Notes: TIME CRITICAL MEDICATIONSame as: Vancocin-NS (premixed)Infusion rate< 1000 mg: infuse over1 [id number] - 1500 mg: infuse over 1.5 [id number] - 2000 mg: infuse over 2 hours> 2001 mg: infuse over 2.5 hours Start Date: 02/13/15 Stop Date: 02/15/15 Status: Discontinuedvancomycin 1.5 gm, 250 mL, Route: IVPB, Drug form: INJ, [id number], Dosing Weight 74.7, kg, Start date: 02/10/15 16:00:00, Duration: 30 day, Stop date: 03/12/15 8:30:00 Notes: TIME CRITICAL MEDICATIONSame as: Vancocin-NS (premixed)Infusion rate< 1000 mg: infuse over1 [id number] - 1500 mg: infuse over 1.5 [id number] - 2000 mg: infuse over 2 hours> 2001 mg: infuse over 2.5 hours Start Date: 02/10/15 Stop Date: 02/12/15 Status: Discontinued Results BLOOD BANK RESULTS Most recent to oldest [Reference Range]: 1 2 3 ABO/Rh O POS O POS *Unknown* *Unknown* (02/13/15 4:28 AM) (02/10/15 11:44 AM) Antibody Scrn Negative Negative (02/13/15 4:28 AM) (02/10/15 11:44 AM) RBC product Product available (02/12/15 9:43 AM) ELECTROLYTES Most recent to oldest 1 2 3 [Reference Range]: Sodium Lvl [135-145 mEq/L] 138 mEq/L 139 mEq/L 136 mEq/L (02/16/15 4:14 AM) (02/15/15 3:59 AM) (02/14/15 6:11 AM) Potassium Lvl [3.5-5.1 mEq/L] 4.1 mEq/L 4.6 mEq/L 1 4.1 mEq/L (02/16/15 4:14 AM) (02/15/15 3:59 AM) (02/14/15 6:11 AM) Chloride Lvl [95-109 mEq/L] 101 mEq/L 102 mEq/L 99 mEq/L (02/16/15 4:14 AM) (02/15/15 3:59 AM) (02/14/15 6:11 AM) CO2 [24-32 mEq/L] 28 mEq/L 27 mEq/L 29 mEq/L (02/16/15 4:14 AM) (02/15/15 3:59 AM) (02/14/15 6:11 AM) AGAP [10.0-20.0 mEq/L] 13.1 mEq/L 14.6 mEq/L 12.1 mEq/L (02/16/15 4:14 AM) (02/15/15 3:59 AM) (02/14/15 6:11 AM) 1Result Comment: Specimen Slightly Hemolyzed.CHEM PANEL Most recent to oldest 1 2 3 [Reference Range]: Creatinine Lvl [0.5-1.4 0.4 mg/dL 0.4 mg/dL 0.5 mg/dL mg/dL] *LOW* *LOW* (02/14/15 6:11 AM) (02/16/15 4:14 AM) (02/15/15 3:59 AM) eGFR 161 mL/min/1.73m2 2 161 mL/min/1.73m2 3 146 mL/min/1.73m2 4 *NA* *NA* *NA* (02/16/15 4:14 AM) (02/15/15 3:59 AM) (02/14/15 6:11 AM) BUN [7-22 mg/dL] 11 mg/dL 10 mg/dL 10 mg/dL (7/3/15 4:14 AM) (02/15/15 3:59 AM) (02/14/15 6:11 AM) Glucose Lvl [70-99 mg/dL] 89 mg/dL 5 65 mg/dL 6 98 mg/dL 7 (02/16/15 4:14 AM) *LOW* (02/14/15 6:11 AM) (02/15/15 3:59 AM) Total Protein [6.4-8.4 g/dL] 7.4 g/dL (02/10/15 12:30 PM) Albumin Lvl [3.5-5.0 g/dL] 2.5 g/dL *LOW* (02/10/15 12:30 PM) Globulin [2.0-4.0 g/dL] 4.9 g/dL *HI* (02/10/15 12:30 PM) A/G Ratio [0.7-1.6] 0.5 *LOW* (02/10/15 12:30 PM) Calcium Lvl [8.5-10.5 mg/dL] 8.6 mg/dL 9.0 mg/dL 8.8 mg/dL (02/16/15 4:14 AM) (02/15/15 3:59 AM) (02/14/15 6:11 AM) Phosphorus [2.5-4.5 mg/dL] 4.0 mg/dL 2.8 mg/dL 3.1 mg/dL (02/16/15 4:14 AM) (02/15/15 3:59 AM) (02/14/15 6:11 AM) Magnesium Lvl [1.8-2.4 mg/dL] 1.8 mg/dL 1.7 mg/dL 1.9 mg/dL (02/17/15 5:14 AM) *LOW* (02/15/15 3:59 AM) (02/16/15 4:14 AM) ALT [0-65 unit/L] 46 unit/L (02/10/15 12:30 PM) AST [0-37 unit/L] 30 unit/L (02/10/15 12:30 PM) Alk Phos [39-136 unit/L] 107 unit/L (02/10/15 12:30 PM) Bili Total [0.2-1.3 mg/dL] 0.3 mg/dL (02/10/15 12:30 PM) Bili Direct [0.0-0.3 mg/dL] 0.1 mg/dL (02/10/15 12:30 PM) Bili Indirect [0.0-1.0 mg/dL] 0.2 mg/dL (02/10/15 12:30 PM) Lactic Acid Lvl [0.5-2.2 1.0 mMol/L mMol/L] (02/10/15 11:44 AM) Procalcitonin Lvl [0.00-0.10 <0.05 ng/mL ng/mL] (02/10/15 12:30 PM) 2Result Comment: The eGFR is calculated using the CKD-EPI formula. In most young , healthy individualsthe eGFR will be >90 mL/min/1.73m2. The eGFR declines with age. An eGFR of 60-89 may be normal in some populations, particularly the elderly, for whom the CKD-EPI formula has not been extensively validated. Use of the eGFR is not recommended in the following populations: Individuals with unstable creatinine concentrations, including patients and those with serious co-morbid conditions. Patients with extremes in muscle mass or diet. The data above are obtained from the National Kidney Disease Education Program ( NKDEP) which additionally recommends that when the eGFR is used in patients with extremes of body mass index for purposesof drug dosing, the eGFR should be multiplied by the estimated BMI.3Result Comment: The eGFR is calculated using the CKD-EPI formula. In most young, healthy individualsthe eGFR will be >90 mL/ min/1.73m2. The eGFR declines with age. An eGFR of 60-89 may be normal in some populations, particularly the elderly, for whom the CKD-EPI formula has not been extensively validated. Use of the eGFR is not recommended in the following populations: Individuals with unstable creatinine concentrations, including patients and those with serious co-morbid conditions. Patients with extremes in muscle mass or diet. The data above are obtained from the National Kidney Disease Education Program ( NKDEP) which additionally recommends that when the eGFR is used in patients with extremes of body mass index for purposesof drug dosing, the eGFR should be multiplied by the estimated BMI.4Result Comment: The eGFR is calculated using the CKD-EPI formula. In most young, healthy individualsthe eGFR will be >90 mL/ min/1.73m2. The eGFR declines with age. An eGFR of 60-89 may be normal in some populations, particularly the elderly, for whom the CKD-EPI formula has not been extensively validated. Use of the eGFR is not recommended in the following populations: Individuals with unstable creatinine concentrations, including patients and those with serious co-morbid conditions. Patients with extremes in muscle mass or diet. The data above are obtained from the National Kidney Disease Education Program ( NKDEP) which additionally recommends that when the eGFR is used in patients with extremes of body mass index for purposesof drug dosing, the eGFR should be multiplied by the estimated BMI.5Interpretive Data: Adult reference range values reflect the clinical guidelines of the [place] [employer].6Interpretive Data: Adult reference range values reflect the clinical guidelines of the [place] [employer].7Interpretive Data: Adult reference range values reflect the clinical guidelines of the [place] [employer].CARDIAC ENZYMES Most recent to oldest [Reference Range]: 1 2 3 Total CK [12-191 unit/L] 64 unit/L (02/10/15 12:30 PM) PARATHYROID PROFILE Most recent to oldest [Reference Range]: 1 2 3 Ca Ion WB [1.05-1.25 mMol/L] 1.15 mMol/L 1.10 mMol/L (02/11/15 3:47 AM) (02/10/15 11:44 AM) Ca Norm WB [1.05-1.25 mMol/L] 1.14 mMol/L 1.07 mMol/L (02/11/15 3:47 AM) (02/10/15 11:44 AM) DRUG SCREEN Most recent to oldest [Reference Range]: 1 2 3 U Amph Scr [Negative] Negative *NA* (02/11/15 8:19 PM) U Dania Scr [Negative] Negative *NA* (02/11/15 8:19 PM) U Benzodia Scr [Negative] Negative *NA* (02/11/15 8:19 PM) U Cocaine Scr [Negative] Negative *NA* (02/11/15 8:19 PM) U Opiate Scr [Negative] Positive *ABN* (02/11/15 8:19 PM) U Phencyc Scr [Negative] Negative *NA* (02/11/15 8:19 PM) U Cannab Scr [Negative] Positive *ABN* (02/11/15 8:19 PM) UDS Note See Note 8 (02/11/15 8:19 PM) 8Interpretive Data: Drugs reported as positive have not been confirmed by a second method and should be used for medical purposes only. To order confirmation, contact laboratory. note: Below are cut-off concentrations for all urine drugs of abuse performed in the laboratory. Some drugs listed in the table may not be included in this panel. Description Cut-off concentration Amphetamine 1000 ng/mL Barbiturates 200 ng/mL Benzodiazepines 300 ng/mL Cocaine metabolites 300 ng/mL Opiates 300 ng/mL Phencyclidine 25 ng/mL Propoxyphene 300 ng/mL Marijuana metabolites 50 ng/mL Methadone 300 ng/mL Urine alcohol 20 mg/dLTOXICOLOGY Most recent to oldest 1 2 3 [Reference Range]: Vanco Tr TND 1000 1700 194 *NA* *NA* *NA* (02/15/15 10:10 AM) (02/14/15 4:30 PM) (02/12/15 7:46 PM) Vanco Tr 8.8 ug/ml 9 10.4 ug/ml 10 4.6 ug/ml 11 *NA* *NA* *NA* (02/15/15 10:10 AM) (02/14/15 4:30 PM) (02/12/15 7:46 PM) 9Interpretive Data: Therapeutic Range: Trough: 10 - 20 ug/mL Peak: 20 - 40 ug/mL Potential Toxicity: >80 ug/[id number] Data: Therapeutic Range: Trough: 10 - 20 ug/mL Peak: 20 - 40 ug/mL Potential Toxicity: >80 ug/[id number] Data: Therapeutic Range: Trough: 10 - 20 ug/mL Peak: 20 - 40 ug/mL Potential Toxicity: >80 ug/mLBODY FLUIDS Most recent to oldest [Reference Range]: 1 2 3 Glucose BF 74 mg/dL 12 *NA* (02/15/15 6:56 PM) Gluc BF Type Pleural *NA* (02/15/15 6:56 PM) pH BF 8.00 13 *NA* (02/15/15 6:56 PM) pH BF Type Pleural (02/15/15 6:56 PM) Prot BF Type Pleural *NA* (02/15/15 6:56 PM) LDH BF Type Pleural *NA* (02/15/15 6:56 PM) Protein BF 3.9 g/dL 14 *NA* (02/15/15 6:56 PM) LDH BF 345 unit/L 15 *NA* (02/15/15 6:56 PM) Color BF Light Red *NA* (02/15/15 6:56 PM) Clarity BF [Clear] Moderate Cloudy *ABN* (02/15/15 6:56 PM) Supernat BF [Colorless] Yellow *ABN* (02/15/15 6:56 PM) [place] [address] /mm3 16 *NA* (02/15/15 6:56 PM) WBC BF 1960 /mm3 17 *NA* (02/15/15 6:56 PM) Segs BF 16 % 18 *NA* (02/15/15 6:56 PM) Lymph BF 32 % *NA* (02/15/15 6:56 PM) Eos BF 6 % *NA* (02/15/15 6:56 PM) Macrophage BF 46 % *NA* (02/15/15 6:56 PM) CellCnt BF Type Pleural (02/15/15 6:56 PM) 12Interpretive Data: Reference Range is not defined and interpretation must be performed in the consideration of the pathophysiology of the analyte and the clinical context.13Interpretive Data: No established reference ranges.14Interpretive Data: Reference Range is not defined and interpretation must be performed in the consideration of the pathophysiology of the analyte and the clinical context.15Interpretive Data: Reference Range is not defined and interpretation must be performed in the consideration of the pathophysiology of the analyte and the clinical context.16Interpretive Data: No established reference ranges.17Interpretive Data: No established reference ranges.18Interpretive Data: No established reference ranges.IMMUNOLOGY Most recent to oldest [Reference Range]: 1 2 3 RPR [Non Reactive] Non Reactive (02/11/15 3:44 AM) HIV 1/2 Ab [Negative] Negative *NA* (02/11/15 3:44 AM) Hep Bs Ag [Negative] Negative *NA* (02/11/15 3:44 AM) Hep C Ab Negative *NA* (02/11/15 3:44 AM) HEMATOLOGY Most recent to oldest 1 2 3 [Reference Range]: WBC [3.7-10.4 K/CMM] 6.6 K/CMM 6.5 K/CMM 8.8 K/CMM (02/19/15 3:47 AM) (02/18/15 4:51 AM) (02/17/15 5:14 AM) RBC [4.70-6.10 M/CMM] 4.09 M/CMM 4.01 M/CMM 3.79 M/CMM *LOW* *LOW* *LOW* (02/19/15 3:47 AM) (02/18/15 4:51 AM) (02/17/15 5:14 AM) Hgb [14.0-18.0 g/dL] 12.4 g/dL 12.3 g/dL 11.6 g/dL *LOW* *LOW* *LOW* (02/19/15 3:47 AM) (02/18/15 4:51 AM) (02/17/15 5:14 AM) Hct [42.0-54.0 %] 37.6 % 36.9 % 34.6 % *LOW* *LOW* *LOW* (02/19/15 3:47 AM) (02/18/15 4:51 AM) (02/17/15 5:14 AM) MCV [80.0-94.0 fL] 91.9 fL 91.9 fL 91.2 fL (02/19/15 3:47 AM) (02/18/15 4:51 AM) (02/17/15 5:14 AM) MCH [27.0-31.0 pg] 30.4 pg 30.6 pg 30.6 pg (02/19/15 3:47 AM) (02/18/15 4:51 AM) (02/17/15 5:14 AM) MCHC [32.0-36.0 g/dL] 33.1 g/dL 33.4 g/dL 33.5 g/dL (02/19/15 3:47 AM) (02/18/15 4:51 AM) (02/17/15 5:14 AM) RDW [11.5-14.5 %] 13.4 % 13.0 % 13.1 % (02/19/15 3:47 AM) (02/18/15 4:51 AM) (02/17/15 5:14 AM) Platelet [133-450 K/CMM] 492 K/CMM 496 K/CMM 447 K/CMM *HI* *HI* (02/17/15 5:14 AM) (02/19/15 3:47 AM) (02/18/15 4:51 AM) MPV [7.4-10.4 fL] 6.6 fL 6.7 fL 6.5 fL *LOW* *LOW* *LOW* (02/19/15 3:47 AM) (02/18/15 4:51 AM) (02/17/15 5:14 AM) Segs [45.0-75.0 %] 57.0 % 59.5 % 74.0 % (02/19/15 3:47 AM) (02/18/15 4:51 AM) (02/17/15:14 AM) Bands [0.0-11.0 %] 2.0 % 2.0 % (02/16/15 4:14 AM) (02/15/15 3:59 AM) Lymphocytes [20.0-40.0 %] 32.7 % 29.9 % 16.9 % (02/19/15 3:47 AM) (02/18/15 4:51 AM) *LOW* (02/17/15:14 AM) Atypical Lymphs [<=0.0 %] 0.0 % 0.0 % (02/16/15 4:14 AM) (02/15/15 3:59 AM) Monocytes [2.0-12.0 %] 7.5 % 7.9 % 7.2 % (02/19/15 3:47 AM) (02/18/15 4:51 AM) (02/17/15 5:14 AM) Eosinophils [0.0-4.0 %] 1.7 % 1.5 % 1.2 % (02/19/15 3:47 AM) (02/18/15 4:51 AM) (7/4/15 5:14 AM) Basophils [0.0-1.0 %] 1.1 % 1.2 % 0.7 % *HI* *HI* (02/17/15 5:14 AM) (02/19/15 3:47 AM) (02/18/15 4:51 AM) Myelocytes [<=0.0 %] 5.0 % *HI* (02/16/15 4:14 AM) Segs-Bands # [1.5-8.1 3.8 K/CMM 3.9 K/CMM 6.5 K/CMM K/CMM] (02/19/15 3:47 AM) (02/18/15 4:51 AM) (02/17/15 5:14 AM) Lymphocytes # [1.0-5.5 2.2 K/CMM 2.0 K/CMM 1.5 K/CMM K/CMM] (02/19/15 3:47 AM) (02/18/15 4:51 AM) (02/17/15 5:14 AM) Monocytes # [0.0-0.8 K/CMM] 0.5 K/CMM 0.5 K/CMM 0.6 K/CMM (02/19/15 3:47 AM) (02/18/15 4:51 AM) (02/17/15 5:14 AM) Eosinophils # [0.0-0.5 0.1 K/CMM 0.1 K/CMM 0.1 K/CMM K/CMM] (02/19/15 3:47 AM) (02/18/15 4:51 AM) (02/17/15 5:14 AM) Basophils # [0.0-0.2 K/CMM] 0.1 K/CMM 0.1 K/CMM 0.1 K/CMM (02/19/15 3:47 AM) (02/18/15 4:51 AM) (02/17/15 5:14 AM) RBC Morph Normal Normal (02/18/15 4:51 AM) (02/13/15 4:28 AM) Anisocyte [None Seen] 1+ *ABN* (02/15/15 3:59 AM) Plt Morph Normal Normal (02/18/15 4:51 AM) (02/13/15 4:28 AM) PT [12.0-14.7 seconds] 13.9 seconds 14.5 seconds 14.7 seconds (02/13/15 4:28 AM) (02/11/15 3:47 AM) (02/10/15 11:44 AM) INR [0.85-1.17] 1.07 19 1.12 20 1.14 21 (02/13/15 4:28 AM) (02/11/15 3:47 AM) (02/10/15 11:44 AM) PTT [22.9-35.8 seconds] 37.4 seconds 22 38.9 seconds 23 35.1 seconds 24 *HI* *HI* (02/10/15 11:44 AM) (02/13/15 4:28 AM) (02/11/15 3:47 AM) 19Interpretive Data: RECOMMENDED RANGES FOR PROTIME INR: 2.0-3.0 for most medical and surgical thromboembolic states. 2.5-3.5 for artificial heart valves and recurrent embolism. INR SHOULD BE USED ONLY FOR PATIENTS ON STABLE ANTICOAGULANT THERAPY.20Interpretive Data: RECOMMENDED RANGES FOR PROTIME INR: 2.0-3.0 for most medical and surgical thromboembolic states. 2.5-3.5 for artificial heart valves and recurrent embolism. INR SHOULD BE USED ONLY FOR PATIENTS ON STABLE ANTICOAGULANT THERAPY.21Interpretive Data: RECOMMENDED RANGES FOR PROTIME INR: 2.0-3.0 for most medical and surgical thromboembolic states. 2.5-3.5 for artificial heart valves and recurrent embolism. INR SHOULD BE USED ONLY FOR PATIENTS ON STABLE ANTICOAGULANT THERAPY.22Interpretive Data: Heparin Therapeutic Range: 57 - 92 [id number] Data: Heparin Therapeutic Range: 57 - 92 [id number] Data: Heparin Therapeutic Range: 57 - 92 SecondsBACTERIAL - SEROLOGY Most recent to oldest [Reference Range]: 1 2 3 MRSA by PCR Negative 25 (02/10/15 11:44 AM) 25Interpretive Data: Interpretive Data: The [employer] LightCycler MRSA assay is a qualitative test for thedirect detection of nasal colonization with methicillin- resistant Staphylococcus aureus (MRSA) to aid in the prevention and control of MRSA infections in healthcare settings. A positive result does notindicate an infection or require treatment. A negative result does not exclude colonization or infection. The polymerase chain reaction (PCR) assay detects a proprietary sequence indicative of the integration of the SCCmec cassette into the Staphylococcus aureus chromosome, indicating the presence of MRSA DNA. The assay utilizes FDA cleared IVD reagents. Performance characteristics have been verified by the [facility] within the [facility]. The [facility] is authorized under the Clinical Laboratory Improvement Amendment of 1988 (CLIA-88) to performhigh complexity testing. Immunizations Vaccine Date Refusal Reason influenza virus vaccine, inactivated 08/09/14 influenza virus vaccine, inactivated 08/07/14 Parent Or Guardian Refuses Procedures Procedure Date Related Diagnosis Body Site Thoracentesis, needle or catheter, aspiration of 02/15/15 the pleural space; with imaging guidance Social History Social History Type Response Substance Abuse Use: Current. Type: Amphetamines. Recreational Drug Route: Inhaled, Intravenous. Household substance abuse concerns: No. Alcohol Current, Type Beer, Liquor. Frequency: Daily. Smoking Status Current every day smoker; Type: Cigarettes; Started [age] age: 9.0 ; Previous treatment: Counseling; Ready to change: No; Concerns about tobacco use in household: No; Lives with someone who smokes; Cigarette Smoking Last 365 Days Yes; Reg Smoking Cessation Counseling Yes Assessment and Plan Extracted from: Title: Progress Note * Author: Bud Wall MD Date: 02/20/15 Impression and Plan Intravenous drug use - methamphetamines Schizoaffective disorder Left pectoral abscess Retrosternal abscess ?infective endocarditis resolved Echo is normal Plan Cultures growing STAPH aureus Oxacillin sensitive Continue Cefazolin Improved,chest tubes are out Extracted from: Title: Psychiatry Consult Author: Shanique Corrigan MD Date: PSYCHIATRY CONSULTATION NOTE DATE: 02/12/2015 REFERRING PHYSICIAN: José Miguel Lr MD CONSULTING TEAM: Psychiatry Reason for Consultation: Medications review for possible bipolar disorder Chief Complaint: "I am tired" History of Present Illness: Patient is 29 yo male with long history of multiple substance abuse ( Marijuana, methamphetamine IV, alcohol, bath salts), multiple [sychiatric illnesses, ADHD, Schizoaffective disorder, Bipola r disorder?, multiple suicidal attempts (last time in July,) who preented to the hospital for left subpectoral abscess. Now patient is s/p I&D in OR, wound vac placement and on IV ABx.Psych iatry was consulted for bipolar disorder evaluation and medciation regimen review. During conversation appears calm, cooperative and maintain good eye contact. Patient does not appear manic, he does not speak fast, his thinking and speech are organized. Patient states he used to have "manic episodes" many years ago when he would go with almost no sleep for several days, speck fast, had many thoughts on his mind at the same time. Patient states he sees his prychiatrist regularly (las t time about 2 mo ago) but does not take most of his medications. He states he takes only Klonopin 2 mg TID and Tamazepam 30 mg qhs. Patient admits his mood is down and his interest, energy and appetite are decreased. Sleep is okay. Patient denies any suicidal or homicidal ideations. He denies auditory, visual or tactile hallucinations. Patient admits he used to hear voices and seeing demons but did not have those for at least a month. The voices never gave him commands and he states he learn now to deal with them as he knows they are not real. Patient also states that his anxiety is stable now as he is taking Klonopine. He states when he is off of Klonopine his anxiety comes back and he gets friquent panic attacks when he starts sweating, has troub breathing and has palpitations. Past Psychiatric History: Past Diagnoses: ADHD, Schizoaffective disorder, Depression, Bipolar disorder?, multiple suicide attempts Past Treatment: Inpatient- [facility] at least twice Outpatient- Dr. Manas Zamudio Past Psychiatric Medications: Xanax, Adderall, Buprenorphine, Tegretol, Neurontin, Perphenazine, Temazepam, Clonazepam History of Lethality (suicidality, violence): multiple suicidal attempts. Past Medical and Surgical History: psychiatric history as above Medications: Outpatient Psychiatric Medications: Not clear, per patient Clonazepam and Temazepam Inpatient Medications: Medications (30) Active Scheduled Meds (9): 02/09/15 clonazePAM (KlonoPIN) 2 mg PO TID 02/11/15 docusate 100 mg PO Daily 02/12/15 folic acid 1 mg PO Daily 02/11/15 heparin 5,000 unit SUB-Q Q8H 02/10/15 meropenem (Merrem) 500 mg IVPB [id number] 02/12/15 multivitamin 1 tab PO Daily 02/11/15 senna 8.6 mg PO Daily 02/12/15 thiamine 100 mg PO Daily 02/10/15 vancomycin 1.5 gm IVPB [id number] 166.67 ml/hr Unscheduled Meds: None PRN Meds (20): 02/11/15 acetaminophen-hydrocodone ([place] 5/325 oral tablet) 1 tab PO Q4H 02/11/15 acetaminophen-hydrocodone ([place] 5/325 oral tablet) 2 tab PO Q4H 02/11/15 acetaminophen 650 mg PO Q6H 02/11/15 bisacodyl 10 mg PA Daily 02/11/15 calcium gluconate + Sodium Chloride 0.9% IV 100 mL 3 gm IVPB PRN 130 ml/hr 02/11/15 calcium gluconate + Sodium Chloride 0.9% IV 80 mL 2 gm IVPB PRN 100 ml /hr 02/11/15 magnesium oxide 800 mg PO PRN 02/11/15 magnesium sulfate 1 gm IVPB PRN 100 ml/hr 02/11/15 magnesium sulfate 2 gm IVPB PRN 25 ml/hr 02/11/15 metoprolol (metoprolol 5 mg/5 ml INJ) 2.5 mg IVP Q6H 02/10/15 naloxone 0.04 mg IVP Q2MIN 02/11/15 potassium chloride 20 mEq PO PRN 02/11/15 potassium chloride 20 mEq NJ PRN 02/11/15 potassium chloride 10 mEq IVPB PRN 50 ml/hr 02/11/15 potassium phosphate + Sodium Chloride 0.9% IV 250 mL 15 mmol IVPB PRN 63.75 ml/hr 02/11/15 potassium phosphate + Sodium Chloride 0.9% IV 250 mL 30 mmol IVPB PRN 65 ml/hr 02/11/15 potassium phosphate-sodium phosphate (potassium phosphate-sodium phosphate 250 mg-278 mg-164 mg oral powder) 2 pkt PO PRN 02/11/15 sodium phosphate + Sodium Chloride 0.9% IV 250 mL 15 mmol IVPB PRN 63.75 ml/hr 02/11/15 sodium phosphate + Sodium Chloride 0.9% IV 250 mL 30 mmol IVPB PRN 65 ml/hr 02/10/15 temazepam (Restoril) 30 mg PO Bedtime One Time Meds: None Continuous Infusions (1): 02/10/15 hydromorphone 15 mg (HYDROmorphone 0.5mg/mL SHOE SALESPERSON (15mg/30 mL) 15 mg) 15 mg Per SHOE SALESPERSON Order as Directed Allergies (1) Active Reaction NKDA None documented Family Psychiatric History: Father - schizophrenia Social and Developmental History: Lives with his father in [place] who is at [facility] right now (per patient), multiple substance abuse as above. Does not work Review of Systems: Constitutional- fatigue HEENT- negative Cardiovascular- denies chest pain, ZARAGOZA Respiratory- Denies SOB, + cough Gastrointestinal- negatvie Musculoskeletal- no stiffness Skin- shest wall wound Neurologic- negative Psychiatric - see above Mental Status Examination: General appearance and Behavior- cooperatove, good eye contact, constricted Musculoskeletal- no abnormal movements are noticed Speech- accelerated rate, tone, volume, latency. Mood/Affect- decreased mood, restircted affect Thought process- organized Thought content- denies suicidal or homicidal ideations Perceptual disturbances- denies visual, auditory and tactile hallucinations Insight/Judgment- poor/poor Cognitive Examination: Orientation- alert and oriented to persone, place, month, year and approximate date Attention/concentration- intact, was able to spell word "world" forward and backward Memory- 3/3 immidiate registration, 3/3 5 minute recall Fund of knowledge- intatc, able to name last three presidents Abstracting ability- appropriate, gave abstractive meaning of a proverb VS/Laboratory Data: Vitals Tmp(F) Pulse BP RR SpO2 FIO2 02/12 07:45 ---- 92 ----- -- --- --- 02/12 07:00 ---- 96 111/65 20 --- --- 02/12 05:00 ---- 100 119/68 18 96 --- 02/12 03:00 ---- 96 116/70 -- 96 --- 02/12 02:00 ---- 98 124/72 -- 96 --- 24 Hr Tmax: 101.7F (38.72c) at 02/11 20:00 Vital Signs are the last 5 in the past 48 hours. 24hr [facility] 02/12 0353 Glucose Lvl 97 BUN 7 Creatinine Lvl 0.6 Sodium Lvl 136 Potassium Lvl 3.9 Chloride Lvl 98 CO2 31 AGAP 10.9 Calcium Lvl 8.9 eGFR 136 Magnesium Lvl 2.0 Phosphorus 3.3 WBC 19.2 H RBC 4.20 L Hgb 13.0 L Hct 38.0 L MCV 90.5 MCH 30.9 MCHC 34.2 RDW 13.0 Platelet 498 H MPV 7.1 L Segs 85.2 H Monocytes 5.5 Lymphocytes 8.5 L Eosinophils 0.3 Basophils 0.5 Segs-Bands # 16.4 H Lymphocytes # 1.6 Monocytes # 1.0 H Eosinophils # 0.1 Basophils # 0.1 02/11 2019 U Amph Scr Negative U Dania Scr Negative U Benzodia Scr Negative U Cannab Scr Positive U Cocaine Scr Negative U Opiate Scr Positive U Phencyc Scr Negative UDS Note See Note 02/11 0344 Hep C Ab Negative HIV 1/2 Ab Negative 02/10 1144 MRSA by PCR Negative Assessment: [place] I: polysubstance dependence ,Depression NOS, bipolar d/o per history [place] II: deferred [place] III: see PMH [place] IV: multiple substance abuse, poor social support [place] V: deferred Recommendations: 1. Patrient's mood is slightly down, denied SI or HI. Would hold off on starting SSRI as Bipolar disorder diagnosis is not clear and SSRIs can trigger oscar. 2. Would try to clearfy BD diagnosis and home psychiatric medications by contacting outpatient psychiatrist Dr. Zamudio. Patient refused to start any psychiatric medications until he sees Dr. Zamudio 3. Would strongly discourage restarting benzodiazepines as the patient has long history of multiple substance abuse and benzodiazepines can cause more addiction. Patient stated he was taking Klonopin at home but UDS was negative for benzodiazepines. Okay to continue for now as it' s been restarted 2 days ago. 4. Would recommend to switch Temazepam to Trazadone qhs, can start with 100 mg qhs Thank you for the consult! Plan was discussed with Dr. Ricks (attending) and he agrees with plan. Resident: Shanique Corrigan M.D. Family Medicine PGY2 [id number] PSYCHIATRY ATTENDING ADDENDUM I have interviewed and examined the patient and discussed the case with the resident. I agree with the resident assessment and recommendations except as amended below. Mental Status Examination: General Appearance - NAD, improved engageability Musculoskeletal - No gross abnormal movements Speech - Normal R/V/T Thought Process - Appropriate answers Thought Content - No delusions, denies suicidal or homicidal ideations or plans Perception - no AH/VH Mood/Affect - "okay"/affect congruent Insight/Judgment - suspect /fair Cognitive Examination: Orientation - Alert, no gross disorientation Attention/concentration - No gross deficit Memory - No gross deficit Fund of knowledge - Appropriate Abstracting ability - Intact grossly Assessment: ploysubatance dependence , Depression NOS, Bipolar d/o by history Recommendations: Discussed with Dr. Corrigan and agree with above. Please see above recommendations. Thank you for allowing the opportunity to participate in this patient's care. Please call with any questions. Extracted from: Title: Cardiovascular Surgery Progress Note Author: Huy Huddleston MD Date: Admission History Reason for Consultation: Anterior Mediastinal Abscess Chief Complaint: Chest pain for 3 weeks with complaints of left chest wall swelling History of Present Illness: Mr Sykes is a 28 yo M with a long history of psychiatric illness, history of ADHD, seizure disorder, schizoaffective disorder, polysubstance abuse and multiple suicidal attempts in the past(per patient > 10). He presented to outside hospital today with a 3 week history of chest pain which acutely worsened today. The patient denies any palpitation, no dyspnea or any cardiorespiratory symptoms. There is n o recent fevers, chills or rigours. The patient does inject methamphedamines into his arm veins, last doing so approximately 2 weeks ago according to the patient. He has injected in to the neck veins pr eviously but not for the last 3 years. There is no history of recent trauma, no history of HIV or any lymphoproliferative disorders as per the patient. Review of Systems Neuro: no headache, pain, no altered power or sensory function HEENT: No complaints Resp: No dyspnea, no wheeze Cardiovascular: No chest pain, no orthopnea, no PND GI: No complaints : No symptoms Past Medical and Surgical History: Bipolar, depression, schizoaffective disorder, multiple suicidal attempts, incarceration. Past Psychiatric History: Past Diagnoses: Xanax, Adderall, Buprenorphine, Tegretol, Neurontin, Perphenazine, Temazepam Past Treatment: Inpatient- none Outpatient- Xanax, Adderall, Buprenorphine, Tegretol, Neurontin, Perphenazine, Temazepam Past Psychiatric Medications: Xanax, Adderall, Buprenorphine, Tegretol, Neurontin, Perphenazine, Temazepam History of Lethality (suicidality, violence): multiple episodes of suicidal ideation, plans and attempts. Medications: Outpatient Psychiatric Medications: Xanax, Adderall, Buprenorphine, Tegretol, Neurontin, Perphenazine, Temazepam Physical Examination T: 98.7, HR 72 bpm, BP 128/72 Awake and alert HEENT Normal Left chest appears more prominent than the right. No fluctuance, no crepitus Left arm normal neurovascular exam No lymphadenopathy CT Chest: Left pectoral muscle enlarged, no abscess identifed. There is a mediastinal abscess 3.5 cm via 3 cm Impression: 29 year old with history of polysubstance abuse, injection drug use presenting with a medistinal abscess. Blood cultures sent, ID consult pending. Will ask IR to drain this collection and send for culture. Huy Huddleston MD Cardiovascular Fellow Addendum by José Miguel Lr MD on THORACIC SURGERY STAFF CONSULT ADDENDUM 02/11/2015 11:09 The patient was seen and evaluated with Dr. Karo MD. I have personally reviewed the imaging and laboratory data. He has a left subpectoral abscess, presternal abscess, and anterior mediastinal absces s which are communicating. We have decided against attempted IR drainage as I doubt it would be entirely successful. We will instead proceed to the operating room for I&D and left parasternal medias tinotomy for mediastinal drain placement and VAC drainage. He is on antibiotics.
--- OUTSIDE RECORDS SUMMARY | 2018-08-20 11:07 | XMS REPORT | Summary of Care ---
:1985 Author Organization [facility] Address [address], [place] [address]- Encounter [facility] Criss(HARRY) [id number] Date(s): 02/20/15 - 03/14/15 [facility] [address] [place] [id number] [employer] Discharge Disposition: Home Attending Physician: Rk Farrell MD Admitting Physician: Huy Barry MD Vital Signs Most recent to oldest [Reference Range]: 1 2 3 Height 182.88 cm (02/20/15 8:19 PM) Most recent to oldest [Reference Range]: 1 2 3 Current Weight 79.545 kg (03/05/15 6:56 AM) Most recent to oldest 1 2 3 [Reference Range]: Temperature Oral [96.4-99.1 98.6 DegF 98.0 DegF 98.3 DegF DegF] (03/13/15 7:07 PM) (03/13/15 8:00 AM) (03/12/15 8:00 PM) Most recent to oldest 1 2 3 [Reference Range]: Blood Pressure [90-140/60-90 134/91 mmHg 106/72 mmHg 128/84 mmHg mmHg] (03/13/15 7:07 PM) (03/13/15 8:00 AM) (03/12/15 8:00 PM) Most recent to oldest 1 2 3 [Reference Range]: Respiratory Rate [14-20 BRMIN] 22 BRMIN 18 BRMIN 20 BRMIN *HI* (03/13/15 8:00 AM) (03/12/15 8:00 PM) (03/13/15 7:07 PM) Most recent to oldest 1 2 3 [Reference Range]: Peripheral Pulse Rate [60-100 89 bpm 70 bpm 63 bpm bpm] (03/13/15 7:07 PM) (03/13/15 8:00 AM) (03/12/15 8:00 AM) Most recent to oldest [Reference Range]: 1 2 3 Weight 75 kg (02/20/15 8:19 PM) Most recent to oldest [Reference Range]: 1 2 3 Body Mass Index 22.42 m2 (02/20/15 8:19 PM) Problem List Condition Effective Dates Status Health Status Informant Adult ADHD(Confirmed) Resolved Anxiety(Confirmed) Resolved Bipolar(Confirmed) Resolved Depression(Confirmed) Resolved Schizoaffective disorder(Confirmed) Resolved Seizure disorder(Confirmed) Resolved Allergies, Adverse Reactions, Alerts Substance Reaction Severity Status NKDA Active Medications acetaminophen 325 mg oral tablet 650 mg, 2 tab, Route: PO, Drug form: TAB, Q6H, Dosing Weight 74.7, kg, PRN For Temp > 101 F, Start date: 02/20/15 17:19:00, Duration: 30 day, Stop date: 17:18:00 Notes: (Same as: Tylenol) Start Date: 02/20/15 Stop Date: 03/14/15 Status: Discontinuedbisacodyl 10 mg, 2 tab, Route: OR, Drug form: ECTAB, PRN, Dosing Weight 74.7, kg, PRN Constipation, Start date: 02/20/15 14:39:00, Duration: 30 day, Stop date: 14:38:00 Notes: (Same As: Dulcolax, Correctol) (Do Not Crush) Start Date: 02/20/15 Stop Date: 02/21/15 Status: Discontinuedbisacodyl 10 mg, 1 supp, Route: OR, Drug form: SUPP, Daily, Dosing Weight 74.7, kg, PRN Constipation, Start date: 02/21/15 11:01:00, Duration: 30 day, Stop date: 11:00:00 Notes: (Same As: Dulcolax, Bisco-Lax) Start Date: 02/21/15 Stop Date: 03/14/15 Status: DiscontinuedceFAZolin + Sodium Chloride 0.9% IV 100 mL 2 gm, Route: IVPB, ABXQ8H, Dosing Weight 74.7, kg, Start date: 02/20/15 18:00:00 , Duration: 30 day, Stop date: 03/22/15 5:00:00 Notes: (Same As: Sonya Partida)Cefazolin FOR IV SET ONLY MEDICATION WASTE Product Size:1000 mgProduct Wasted: ___ mg Start Date: 02/20/15 Stop Date: 03/14/15 Status: DiscontinuedclonazePAM 1 mg, 2 tab, Route: PO, Drug form: TAB, Q8H, Dosing Weight 74.7, kg, Start date : 02/21/15 9:00:00, Stop date: 03/22/15 21:00:00 Notes: (Same As: KlonoPIN) Start Date: 02/21/15 Stop Date: 03/02/15 Status: DiscontinuedclonazePAM 0.5 mg, 1 tab, Route: PO, Drug form: TAB, Q12H, Dosing Weight 74.7, kg, PRN Anxiety, Start date: 03/09/15 17:29:00, Stop date: 04/08/15 17:28:00 Notes: (Same As: KlonoPIN) Start Date: 03/09/15 Stop Date: 03/14/15 Status: DiscontinuedclonazePAM 0.5 mg, 1 tab, Route: PO, Drug form: TAB, Q12H, Dosing Weight 74.7, kg, Start date: 03/03/15 9:00:00, Stop date: 04/01/15 21:00:00 Notes: (Same As: KlonoPIN) Start Date: 03/03/15 Stop Date: 03/09/15 Status: DiscontinuedclonazePAM 0.5 mg oral tablet 0.5 mg=1 tab, PO, Q12H, PRN Anxiety, # 14 tab, 0 Refill(s) Start Date: 03/14/15 Stop Date: 03/21/15 Status: Ordereddocusate 100 mg, 1 cap, Route: PO, Drug form: CAP, Q12H, Dosing Weight 74.7, kg, Start date: 02/20/15 17:00:00, Stop date: 03/22/15 9:00:00 Notes: (Same as: Colace) Start Date: 02/20/15 Stop Date: 03/14/15 Status: Discontinueddocusate sodium 100 mg oral capsule 100 mg=1 cap, PO, Daily, # 30 cap, 0 Refill(s) Start Date: 03/14/15 Stop Date: 04/13/15 Status: Ordereddoxycycline hyclate 100 mg oral tablet 100 mg=1 tab, PO, Q12H, X 28 day, # 56 tab, 0 Refill(s) Start Date: 03/14/15 Stop Date: 04/11/15 Status: Orderedfolic acid 1 mg, 1 tab, Route: PO, Drug form: TAB, Daily, Dosing Weight 74.7, kg, Start date: 02/21/15 9:00:00,Duration: 30 day, Stop date: 03/22/15 9:00:00 Notes: (Same as: Folvite) Start Date: 02/21/15 Stop Date: 03/14/15 Status: Discontinuedfolic acid 1 mg oral tablet 1 mg=1 tab, PO, Daily, # 30 tab, 0 Refill(s) Start Date: 03/14/15 Stop Date: 04/13/15 Status: Orderedibuprofen 600 mg, 3 tab, Route: PO, Drug form: TAB, Q6H, Dosing Weight 75, kg, PRN Pain Score 4-6, Start date:02/26/15 12:10:00, Duration: 30 day, Stop date: 03/28/15 12:09:00 Notes: (Same as: Advil) Give with food. Start Date: 02/26/15 Stop Date: 03/14/15 Status: DiscontinuedKlonoPIN 2 mg, 4 tab, Route: PO, Drug form: TAB, ONCE, Start date: 02/21/15 22:17:00, Stop date: 02/21/15 22:17:00 Notes: (Same As: KlonoPIN) Start Date: 02/21/15 Stop Date: 02/21/15 Status: CompletedMilk of Magnesia 30 mL, Route: PO, Drug Form: SUSP, Dosing Weight 74.7, kg, Daily, PRN Constipation, Start date: 02/20/15 14:39:00, Duration: 30 day, Stop date: 14:38:00 Notes: (Same as: Milk of Magnesia, MOM) Start Date: 02/20/15 Stop Date: 03/14/15 Status: DiscontinuedMultiple Vitamins oral tablet 1 tab, PO, Daily, # 30 tab, 0 Refill(s) Start Date: 03/14/15 Stop Date: 04/13/15 Status: Orderedmultivitamin 1 tab, Route: PO, Drug Form: TAB, Dosing Weight 74.7, kg, Daily, Start date: 03/31 9:00:00, Duration: 30 day, Stop date: 03/22/15 9:00:00 Notes: (Same as:Yolanda) Start Date: 02/21/15 Stop Date: 03/14/15 Status: DiscontinuedNorco 10/325 oral tablet 1 tab, Route: PO, Drug Form: TAB, Dosing Weight 74.7, kg, Q6H, PRN Pain Score 7- 10, Start date: 02/21/15 11:01:00, Stop date: 03/23/15 11:00:00 Notes: Do not exceed 4gm/day of acetaminophen. (Same as: [place] 325/10) Start Date: 02/21/15 Stop Date: 03/14/15 Status: DiscontinuedNorco 10/325 oral tablet 1 tab, Route: PO, Drug Form: TAB, Dosing Weight 74.7, kg, Q4H, PRN Pain Score 1- 3, Start date: 02/20/15 17:19:00, Duration: 30 day, Stop date: 03/22/15 17:18:00 Notes: (Same as: [place] 325/10) Start Date: 02/20/15 Stop Date: 02/21/15 Status: DiscontinuedNorco 10/325 oral tablet 2 tab, Route: PO, Drug Form: TAB, Dosing Weight 74.7, kg, Q6H, PRN Pain Score 7- 10, Start date: 02/20/15 17:19:00, Stop date: 03/22/15 17:18:00 Notes: . (Same as: [place] 325/10) Start Date: 02/20/15 Stop Date: 03/02/15 Status: Discontinuedondansetron 4 mg, 2 mL, Route: IVP, Drug form: INJ, Q8H, Dosing Weight 74.7, kg, PRN Nausea & Vomiting, Start date: 02/20/15 14:39:00, Duration: 30 day, Stop date: 01/29 14:38:00 Notes: (Same as: Osmani) MEDICATION WASTE Product Size: 4 mgProduct Wasted: ___ mg Start Date: 02/20/15 Stop Date: 03/14/15 Status: Discontinuedsenna 8.6 mg oral tablet 8.6 mg, 1 tab, Route: PO, Drug Form: TAB, Dosing Weight 74.7, kg, Daily, Start date: 02/21/15 9:00:00, Duration: 30 day, Stop date: 03/22/15 9:00:00 Notes: (Same as: Robin) Start Date: 02/21/15 Stop Date: 03/14/15 Status: Discontinuedsenna 8.6 mg oral tablet 8.6 mg=1 tab, PO, Daily, X 10 day, # 10 tab, 0 Refill(s) Start Date: 03/14/15 Stop Date: 03/24/15 Status: Orderedthiamine 100 mg, 1 tab, Route: PO, Drug form: TAB, Daily, Dosing Weight 74.7, kg, Start date: 02/21/15 9:00:00, Duration: 30 day, Stop date: 03/22/15 9:00:00 Notes: (Same As: Vitamin B1) Start Date: 02/21/15 Stop Date: 03/14/15 Status: Discontinuedthiamine 100 mg oral tablet 100 mg=1 tab, PO, Daily, X 30 day, # 30 tab, 0 Refill(s) Start Date: 03/14/15 Stop Date: 04/13/15 Status: Orderedtramadol 50 mg oral tablet 50 mg=1 tab, PO, Q6H, PRN Pain, X 10 day, # 40 tab, 0 Refill(s) Start Date: 03/14/15 Stop Date: 03/24/15 Status: Orderedtrazodone 100 mg oral tablet 100 mg, 1 tab, Route: PO, Drug form: TAB, Bedtime, Dosing Weight 74.7, kg, Start date: 02/20/15 21:00:00, Duration: 30 day, Stop date: 03/21/15 21:00:00 Notes: (Same As: Juan C) Start Date: 02/20/15 Stop Date: 03/09/15 Status: Discontinued Results ELECTROLYTES Most recent to oldest [Reference Range]: 1 2 Sodium Lvl [135-145 mEq/L] 141 mEq/L (02/25/15 5:38 AM) Potassium Lvl [3.5-5.1 mEq/L] 3.8 mEq/L (02/25/15 5:38 AM) Chloride Lvl [95-109 mEq/L] 106 mEq/L (02/25/15 5:38 AM) CO2 [24-32 mEq/L] 29 mEq/L (02/25/15 5:38 AM) AGAP [10.0-20.0 mEq/L] 9.8 mEq/L *LOW* (02/25/15 5:38 AM) CHEM PANEL Most recent to oldest [Reference Range]: 1 2 Creatinine Lvl [0.5-1.4 mg/dL] 0.6 mg/dL (02/25/15 5:38 AM) eGFR 136 mL/min/1.73m2 1 *NA* (02/25/15 5:38 AM) BUN [7-22 mg/dL] 17 mg/dL (02/25/15 5:38 AM) Glucose Lvl [70-99 mg/dL] 87 mg/dL (02/25/15 5:38 AM) Albumin Lvl [3.5-5.0 g/dL] 2.9 g/dL *LOW* (02/25/15 5:38 AM) Calcium Lvl [8.5-10.5 mg/dL] 9.3 mg/dL (02/25/15 5:38 AM) Phosphorus [2.5-4.5 mg/dL] 4.3 mg/dL (02/25/15 5:38 AM) 1Result Comment: The eGFR is calculated using [...] eGFR should be multiplied by the estimated BMI.DRUG SCREEN Most recent to oldest [Reference Range]: 1 2 U Methadone Scr [Negative] Negative *NA* (02/21/15 2:42 PM) U Propoxyph Scr [Negative] Negative *NA* (02/21/15 2:42 PM) U Amph Scr [Negative] Negative Negative *NA* *NA* (02/24/15 5:11 AM) (02/21/15 2:42 PM) U Dania Scr [Negative] Negative Negative *NA* *NA* (02/24/15 5:11 AM) (02/21/15 2:42 PM) U Benzodia Scr [Negative] Negative Negative *NA* *NA* (02/24/15 5:11 AM) (02/21/15 2:42 PM) U Cocaine Scr [Negative] Negative Negative *NA* *NA* (02/24/15 5:11 AM) (02/21/15 2:42 PM) U Opiate Scr [Negative] Positive Positive *ABN* *ABN* (02/24/15 5:11 AM) (02/21/15 2:42 PM) U Phencyc Scr [Negative] Negative Negative *NA* *NA* (02/24/15 5:11 AM) (02/21/15 2:42 PM) U Cannab Scr [Negative] Negative Negative *NA* *NA* (02/24/15 5:11 AM) (02/21/15 2:42 PM) UDS Note See Note See Note (02/24/15 5:11 AM) (02/21/15 2:42 PM) URINE AND STOOL Most recent to oldest [Reference Range]: 1 2 UA Turbidity [Clear] Clear (02/24/15 3:42 PM) UA Color [Yellow] Yellow *NA* (02/24/15 3:42 PM) UA pH [5.0-8.0] 7.0 (02/24/15 3:42 PM) UA Spec Grav [<=1.030] 1.015 (02/24/15 3:42 PM) UA Glucose [Negative mg/dL] Negative mg/dL (02/24/15 3:42 PM) UA Blood [Negative] Negative (02/24/15 3:42 PM) UA Ketones [Negative mg/dL] Negative mg/dL *NA* (02/24/15 3:42 PM) UA Protein [Negative mg/dL] Negative mg/dL (02/24/15 3:42 PM) UA Urobilinogen [0.1-1.0 EU/dL] 0.2 EU/dL (02/24/15 3:42 PM) UA Bili [Negative] Negative *NA* (02/24/15 3:42 PM) UA Leuk Est [Negative] Negative (02/24/15 3:42 PM) UA Nitrite [Negative] Negative (02/24/15 3:42 PM) UA WBC [0-5 /HPF] <1 /HPF (02/24/15 3:42 PM) UA Sq Epi [Few /LPF] Occasional /LPF *NA* (02/24/15 3:42 PM) UA Mucus [None Seen /LPF] Few /LPF *NA* (02/24/15 3:42 PM) IMMUNOLOGY Most recent to oldest [Reference Range]: 1 2 RPR [Non Reactive] Non Reactive (03/11/15 4:57 AM) T-Spot.TB [Negative] Negative (03/12/15 6:19 AM) HEMATOLOGY Most recent to oldest [Reference Range]: 1 2 WBC [3.7-10.4 K/CMM] 8.1 K/CMM 7.2 K/CMM (02/24/15 3:35 PM) (02/21/15 5:15 AM) RBC [4.70-6.10 M/CMM] 4.06 M/CMM 4.02 M/CMM *LOW* *LOW* (02/24/15 3:35 PM) (02/21/15 5:15 AM) Hgb [14.0-18.0 g/dL] 12.8 g/dL 12.5 g/dL *LOW* *LOW* (02/24/15 3:35 PM) (02/21/15 5:15 AM) Hct [42.0-54.0 %] 37.6 % 36.8 % *LOW* *LOW* (02/24/15 3:35 PM) (02/21/15 5:15 AM) MCV [80.0-94.0 fL] 92.6 fL 91.5 fL (02/24/15 3:35 PM) (02/21/15 5:15 AM) MCH [27.0-31.0 pg] 31.6 pg 31.1 pg *HI* *HI* (02/24/15 3:35 PM) (02/21/15 5:15 AM) MCHC [32.0-36.0 g/dL] 34.2 g/dL 33.9 g/dL (02/24/15 3:35 PM) (02/21/15 5:15 AM) RDW [11.5-14.5 %] 13.8 % 13.4 % (02/24/15 3:35 PM) (02/21/15 5:15 AM) Platelet [133-450 K/CMM] 351 K/CMM 444 K/CMM (02/24/15 3:35 PM) (02/21/15 5:15 AM) MPV [7.4-10.4 fL] 6.9 fL 6.6 fL *LOW* *LOW* (02/24/15 3:35 PM) (02/21/15 5:15 AM) Segs [45.0-75.0 %] 68.8 % 61.9 % (02/24/15 3:35 PM) (02/21/15 5:15 AM) Lymphocytes [20.0-40.0 %] 21.6 % 27.0 % (02/24/15 3:35 PM) (02/21/15 5:15 AM) Monocytes [2.0-12.0 %] 7.0 % 8.6 % (02/24/15 3:35 PM) (02/21/15 5:15 AM) Eosinophils [0.0-4.0 %] 1.6 % 1.4 % (02/24/15 3:35 PM) (02/21/15 5:15 AM) Basophils [0.0-1.0 %] 1.0 % 1.1 % (02/24/15 3:35 PM) *HI* (02/21/15 5:15 AM) Segs-Bands # [1.5-8.1 K/CMM] 5.6 K/CMM 4.4 K/CMM (02/24/15 3:35 PM) (02/21/15 5:15 AM) Lymphocytes # [1.0-5.5 K/CMM] 1.7 K/CMM 1.9 K/CMM (02/24/15 3:35 PM) (02/21/15 5:15 AM) Monocytes # [0.0-0.8 K/CMM] 0.6 K/CMM 0.6 K/CMM (02/24/15 3:35 PM) (02/21/15 5:15 AM) Eosinophils # [0.0-0.5 K/CMM] 0.1 K/CMM 0.1 K/CMM (02/24/15 3:35 PM) (02/21/15 5:15 AM) Basophils # [0.0-0.2 K/CMM] 0.1 K/CMM 0.1 K/CMM (02/24/15 3:35 PM) (02/21/15 5:15 AM) PT [12.0-14.7 seconds] 13.0 seconds (02/21/15 5:15 AM) INR [0.85-1.17] 0.98 (02/21/15 5:15 AM) PTT [22.9-35.8 seconds] 29.7 seconds (02/21/15 5:15 AM) Immunizations Vaccine Date Refusal Reason influenza virus vaccine, inactivated 08/09/14 influenza virus vaccine, inactivated 08/07/14 Parent Or Guardian Refuses Procedures No data available for this section Social History Social History Type Response Substance [...] Yes Assessment and Plan Extracted from: Title: Hospitalist Off Service Progress Author: Waldo Pollock MD Date: Note Assessment/Plan 1.Mediastinal abscess, Ancef until 03/14 - improving - cont with abx till 03/14 , then po doxycycline X 4 weeks on dc 2.Chest wall abscess - improving - slightly soaked - daily dressing changes 3.IV drug user -cessation encouraged - out pt rehab 4.Benzodiazepine dependence - improved Prophylaxis scd's, pt very ambulatory Disposition Anticipate dc on 03/14/15 home then out patient rehab Follow Up Appointment discharge onoral abx Doxycycline 100 mg bid for 4 weeks. Daily dressing changes till wound is closed up f/u [facility] Dr[facility] Lr in 2-3 weeks [phone]. f/u with ID DR Wlal in 2weeks Extracted from: Title: Hospitalist History and Physical Author: Naomi Mckay MD Date: 02/20/15 Assessment/Plan 1.Mediastinal abscess s/p OR with drainage and debridement. on Ancef 2gm iv q8 per ID recs. they will continue to follow. will likely need to complete 6-8 weeks. 2.Chest wall abscess Vac in place s/p debridement. on ancef. will continue to be followed by ID. 3.IV drug user counselled. Orders: acetaminophen, 650 mg, 2 tab, Route: PO, Drug form: TAB, Q6H, Dosing Weight 74.7, kg, PRN For Temp > 101 F, Start date: 02/20/15 17:19:00, Duration: 30 day, Stop date: 03/22/15 17:18:00 acetaminophen-hydrocodone, 1 tab, Route: PO, Drug Form: TAB, Dosing Weight 74.7, kg, Q4H, PRN Pain Score 1-3, Start date: 02/20/15 17:19:00, Duration: 30 day, Stop date: 03/22/15 17:18:00 acetaminophen-hydrocodone, 2 tab, Route: PO, Drug Form: TAB, Dosing Weight 74.7, kg, Q6H, PRN Pain Score 6-10, Start date: 02/20/15 17:19:00, Duration: 30 day, Stop date: 03/22/15 17:18:00 ceFAZolin, 2 gm, 100 mL, Route: IVPB, Drug form: SOLN, ABXQ8H, Dosing Weight 74.7, kg, Start date: 02/20/15 18:00:00, Duration: 30 day, Stop date: 03/22/15 10:00:00 clonazePAM, 2 mg, Route: PO, Drug form: TAB, TID, Dosing Weight 74.7, kg, Start date: 02/21/15 9:00:00, Duration: 30 day, Stop date: 03/22/15 17:00:00 folic acid, 1 mg, Route: PO, Drug form: TAB, Daily, Dosing Weight 74.7, kg, Start date: 02/21/15 9:00:00, Duration: 30 day, Stop date: 03/22/15 9:00:00 multivitamin, 1 tab, Route: PO, Drug Form: TAB, Dosing Weight 74.7, kg, Daily , Start date: 02/21/15 9:00:00, Duration: 30 day, Stop date: 03/22/15 9:00:00 senna, 8.6 mg, 1 tab, Route: PO, Drug Form: TAB, Dosing Weight 74.7, kg, Daily, Start date: 02/21/15 9:00:00, Duration: 30 day, Stop date: 03/22/15 9:00: 00 thiamine, 100 mg, Route: PO, Drug form: TAB, Daily, Dosing Weight 74.7, kg, Start date: 02/21/15 9:00:00, Duration: 30 day, Stop date: 03/22/15 9:00:00 trazodone, 100 mg, 1 tab, Route: PO, Drug form: TAB, Bedtime, Dosing Weight 74.7, kg, Start date: 02/20/15 21:00:00, Duration: 30 day, Stop date: 03/21/15 21:00:00 Prophylaxis scds Disposition home once iv abx complete
--- OUTSIDE RECORDS SUMMARY | 2018-08-20 11:08 | XMS REPORT | Summary of Care ---
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 Alcohol abuse, methamphetamine Review of Systems: Constitutional- negative HEENT- negative Cardiovascular- negative Respiratory- negative Gastrointestinal- negative Genitourinary- negative Musculoskeletal- negative Hemotologic- negative Skin- negative Neurologic- negative Psychiatric - see above Mental Status Examination: General appearance and Behavior- uncooperative, poor eye contact, no family at bedside, psychomotor agitation. Musculoskeletal- no abnormal movements Speech- accelerated rate, tone, volume, latency. Mood/Affect- restricted affect, dysthymic Thought process- disorganized, Thought content- suicidal and homicidal ideation, delusions, preoccupations Perceptual disturbances- auditory, visual, tactile hallucinations; Insight/Judgment- poor Cognitive Examination: Orientation- alert and oriented to person and place only. Attention/concentration- patient not cooperating. Memory- immediated recall 3/3. 5 minutes patient was not cooperating. Fund of knowledge- patient not cooperating Abstracting ability- patient not cooperating. VS/Laboratory Data: Vitals Tmp(F) Pulse BP RR SpO2 FIO2 08/04 14:00 ---- 83 112/57 22 98 --- 08/04 13:00 ---- 81 115/67 21 98 --- 08/04 12:30 96.5 83 118/68 26 94 --- 08/04 12:01 ---- 81 114/67 16 98 --- 08/04 11:56 ---- 81 107/58 18 98 --- 24 Hr Tmax: 96.5F (35.83c) at 08/04 12:30 Vital Signs are the last 5 in the past 48 hours. 24hr Labs 08/04 1222 U Amph Scr Positive U Dania Scr Negative U Benzodia Scr Negative U Cannab Scr Positive U Cocaine Scr Negative U Methadone Scr Negative U Opiate Scr Negative U Phencyc Scr Negative U Propoxyph Scr Negative UDS Note See Note Sodium Lvl 144 Potassium Lvl 3.6 Chloride Lvl 111 H CO2 24 AGAP 12.6 Glucose Lvl 69 L Creatinine Lvl 1.0 BUN 20 B/C Ratio 20 Total Protein 8.0 Albumin Lvl 4.6 Globulin 3.4 A/G Ratio 1.4 Calcium Lvl 9.4 ALT 37 AST 27 Alk Phos 69 Bili Total 1.0 eGFR 102 Magnesium Lvl 2.4 Phosphorus 4.7 H Ca Ion WB 1.19 Ca Norm WB 1.16 Lactic Acid Lvl 2.0 Ethanol Lvl <3 Etoh (%) <.003 WBC 9.0 RBC 5.11 Hgb 16.0 Hct 46.8 MCV 91.6 MCH 31.2 H MCHC 34.1 RDW 12.6 Platelet 249 MPV 8.2 Segs 64.1 Monocytes 11.4 Lymphocytes 23.2 Eosinophils 0.6 Basophils 0.7 Segs-Bands # 5.8 Lymphocytes # 2.1 Monocytes # 1.0 H Eosinophils # 0.1 Basophils # 0.1 PT 14.1 INR 1.08 PTT 30.9 UA Turbidity Clear UA Color Yellow UA Spec Grav 1.014 UA pH 5.5 UA Protein Negative UA Glucose Negative UA Ketones Negative UA Bili Negative UA Blood Small UA Urobilinogen <=1.0 UA Nitrite Negative UA Leuk Est Moderate Micro? Performed UA WBC 30 H UA RBC 2 UA Bacteria Occasional UA Mucus Few UA Sq Epi Few 08/04 1131 POC V Source LEANNE POC V Temp 37.0 POC V pH 7.37 POC V PCO2 45 POC V PO2 68 H POC V HCO3 26 POC V BE 0 POC V O2 Sat 93.0 H POC V Ion Ca 1.21 POC V K 3.7 POC V Na 142 POC V LA 1.7 POC V Glu 76 Assessment: [place] I: substance indued psychotic disorder, Psychosis NOS [place] II: r/ antisocial PD [place] III: see medical history [place] IV: hospitalization, alcohol withdrawal, substance abuse, legal issues with custody. [place] V: GAF 30 Recommendations: Given patient presentation we recommend to start with Haldol 2mg q6h IV prn. we recommend that after patient is medically stable he should be transferred to a inpatient psychiatric facilty. Chavez Steinberg M.D. PGY-2 Family Medicine [facility] Pager [phone] SYCHIATRY ATTENDING CONSULTATION/ADDENDUM I have interviewed and examined the patient and discussed the case with Dr. Steinberg. I agree with the resident assessment and recommendations in corresponding EMR entry once finalized except as amended below. Patient with has prolong history of substance use/dependence, his behavior is also drug seeking currently. Mental Status Examination: General Appearance - Limited eye contact and engageability, cooperative otherwise Musculoskeletal - Increased psychomotor activity. Speech - At times frustrated tone Thought Process - Appropriate answers to routine questions Thought Content - No delusions, + suicidal , no homicidal ideations Perception - No auditory/visual hallucinations Mood/Affect - distressed/congruent Insight/Judgment - poor Assessment: [place] 1 SIPD, psychosis NOS recommendation: 1. substance abuse is very extensive and its difficult to rule out that his symptoms are not due to illict drug use. no collateral information avilable. please give only PRN medications for agiation only Haldol 2 mg IV PRN agtation. 1:1 sitter and suicidal precautions. transfer to inpatient psychiatry once medically stable for further workup of his psychiatyric symptoms. please call if any question.
--- OUTSIDE RECORDS SUMMARY | 2018-08-20 11:08 | XMS REPORT | Summary of Care ---
:1985 Author Encounter JOCE Kahn(HARRY) [id number] Date(s): 08/04/14 - 08/10/[address] Final: Poisoning by Psychodysleptics [hallucinogens] Final: Schizoaffective Disorder, Unspecified Final: Cannabis Abuse, Unspecified Use Final: Attention Deficit Disorder of Childhood with Hyperactivity Final: Poisoning by Amphetamines Final: Suicide and Self-Inflicted Poisoning by Tranquilizers and Other Psychotropic Agents Final: Need for Prophylactic Vaccination and Inoculation Against Influenza Final: Epilepsy, Unspecified, without Mention of Intractable Epilepsy Final: Cocaine Abuse, Unspecified Use Final: Open Wound of Wrist, without Mention of Complication Discharge Disposition: DC/TF To Psych Hosp Physician [...] 08/04/14 Stop Date: 08/04/14 Status: CompletedFluzone Quadrivalent [id number] 0.5 ml, Route: IM, Drug Form: SUSP, [...] 0.4 mL, Route: SUB-Q, Drug form: INJ, [id number], Dosing Weight 82, kg, Start date: 08/05/14 [...] values reflect the clinical guidelines of the [place] [employer].5Interpretive Data: Adult reference range values reflect the clinical guidelines of the [place] [employer].6Interpretive Data: Adult reference range values reflect the clinical guidelines of the [place] [employer].PARATHYROID PROFILE Most recent to oldest [...] ng/mL Methadone 300 ng/mL Urine alcohol 20 mg/[id number] Data: Cutoff (lowest detectable by EIA) values for Serum Drugscreen: THC and PCP: 1 ng/mL All others: 20 ng/mL Cutoff (lowest detectable by GC/MS) value for confirmation: THC and PCP: 1 ng/mL Benzodiazepines: 5 ng/ml All others: 10 ng/ml Test performed by [facility] [address], [place] [id number] Comment: Carboxy-THC: 314 ng/mLTOXICOLOGY Most recent to [...] 12:22 PM) UA Spec Grav [<=1.030] 1.014 (12/19/14 12:22 PM) UA Glucose [Negative mg/dL] Negative [...] [42.0-54.0 %] 41.7 % 46.8 % *LOW* (08/04/14:22 PM) (08/06/14 3:55 AM) MCV [80.0-94.0 fL] 91.9 fL 91.6 fL (08/06/14 3:55 AM) (08/04/14 12:22 PM) MCH [27.0-31.0 pg] 31.1 pg 31.2 pg *HI* *HI* (08/06/14 3:55 AM) (08/04/14 12:22 PM) MCHC [32.0-36.0 g/dL] 33.9 g/dL 34.1 [...] Data: Heparin Therapeutic Range: 57 - 92 [id number] Data: Heparin Therapeutic Range: 57 - 92 [...] by the [facility] within the [facility]. The [facility] is authorized under [...] Discharge Summary Name: Yulisa Sykes Record Number: [id number] Admission Date: 08/04/2014 Discharge Date: 08/10/2014 Discharging [...] multiple pill bottles around him, transferred to [facility] for higher level of care. Pt [...] 08/10/[address] Bender at [phone] for Doc-to-Doc and left a message to have him call back. Addendum by Larry Valaida Munguia DO on Spoke with Dr. Bender at [...] mins exclusive of procedures. patient transferred from [facility]. suicide attempt. found surroinded by pill bottles., [...] the age of 4 and off/on from longterm since the age of 14 in which [...] LA 1.7 POC V Glu 76 Assessment: [place] I: substance indued psychotic disorder, Psychosis NOS [place] II: r/ antisocial PD [place] III: see medical history [place] IV: hospitalization, alcohol withdrawal, substance abuse, legal issues with custody. [place] V: GAF 30 Recommendations: Given patient presentation we recommend to start with Haldol 2mg q6h IV prn. we recommend that after patient is medically stable he should be transferred to a inpatient psychiatric facilty. Chavez Steinberg M.D. PGY-2 Family Medicine [facility] Pager [phone] SYCHIATRY ATTENDING CONSULTATION/ADDENDUM I have interviewed and [...] Mood/Affect - distressed/congruent Insight/Judgment - poor Assessment: [place] 1 SIPD, psychosis NOS recommendation: 1. substance [...]
--- OUTSIDE RECORDS SUMMARY | 2018-08-20 11:08 | XMS REPORT | Summary of Care ---
:1985 Author Organization [facility] Address [address] [place], [place] [address]- Encounter HQ Criss(FIN) [id number] Date(s): 10/02/16 - 10/03/16 [facility] [address] [place] [address]- Discharge Diagnosis: Ureterolithiasis Discharge Diagnosis: Suicidal ideation Discharge Disposition: Home or Self Care Attending Physician: Ronald Aaron DO Vital Signs Most recent to oldest 1 2 3 [Reference Range]: Height 185.42 cm (10/02/16 9:19 PM) Temperature Oral [96.4-99.1 98.2 DegF 98.4 DegF 98.4 DegF DegF] (10/03/16 6:23 AM) (10/03/16 1:07 AM) (10/02/16 11:20 PM) Blood Pressure [90-140/60-90 119/63 mmHg 97/55 mmHg 109/57 mmHg mmHg] (10/03/16 6:23 AM) (10/03/16 4:13 AM) (10/03/16 2:35 AM) Respiratory Rate [14-20 BRMIN] 20 BRMIN 20 BRMIN 20 BRMIN (10/03/16 6:23 AM) (10/03/16 4:13 AM) (10/03/16 2:35 AM) Peripheral Pulse Rate [60-100 70 bpm 68 bpm 80 bpm bpm] (10/03/16 6:23 AM) (10/03/16 4:13 AM) (10/03/16 2:35 AM) Weight 79.545 kg (10/02/16 9:19 PM) Body Mass Index 23.14 m2 (10/02/16 9:19 PM) Problem List Condition Effective Dates Status Health Status Informant Adult ADHD(Confirmed) Active Anxiety(Confirmed) Active Bipolar(Confirmed) Active Depression(Confirmed) Active Schizoaffective disorder(Confirmed) Active Seizure disorder(Confirmed) Active Allergies, Adverse Reactions, Alerts Substance Reaction Severity Status NKDA Active Medications Flomax 0.4 mg oral capsule 0.4 mg=1 cap, PO, Daily, # 30 cap, 0 Refill(s) Start Date: 10/03/16 Status: OrderedMotrin 600 mg, 1.5 tab, Route: PO, Drug form: TAB, ONCE, Dosing Weight 79.545, kg, Priority: STAT, Start date: 10/02/16 22:09:00 FILM COLOR TESTER, Stop date: 10/02/16 22:09:00 FILM COLOR TESTER Notes: (Same as: Motrin)"Do Not Crush" Give with food. Start Date: 10/02/16 Stop Date: 10/02/16 Status: CompletedSodium Chloride 0.9% (Bolus) IV 1,000 mL, Infuse Over: 1 hr, Route: IV, ONCE, Priority: STAT, Dosing Weight 79.545 kg, Start date: 10/02/16 23:22:00 FILM COLOR TESTER, Duration: 1 doses or times, Stop date: 10/02/16 23:22:00 FILM COLOR TESTER Start Date: 10/02/16 Stop Date: 10/02/16 Status: CompletedSodium Chloride 0.9% (Bolus) IV 1,000 mL, Infuse Over: 1 hr, Route: IV, ONCE, Priority: STAT, Dosing Weight 79.545 kg, Start date: 10/03/16 2:16:00 FILM COLOR TESTER, Duration: 1 doses or times, Stop date: 10/03/16 2:16:00 FILM COLOR TESTER Start Date: 10/03/16 Stop Date: 10/03/16 Status: CompletedUltram 50 mg oral tablet 50 mg=1 tab, PO, Q6H, PRN pain, No driving while under the influence of this medication, X 3 day, # 12 tab, 0 Refill(s) Start Date: 10/03/16 Stop Date: 10/06/16 Status: Ordered Results ELECTROLYTES Most recent to oldest [Reference Range]: 1 2 Sodium Lvl [135-145 mEq/L] 142 mEq/L 139 mEq/L (10/03/16 4:24 AM) (10/02/16 9:41 PM) Potassium Lvl [3.5-5.1 mEq/L] 3.9 mEq/L 3.8 mEq/L (10/03/16 4:24 AM) (10/02/16 9:41 PM) Chloride Lvl [95-109 mEq/L] 109 mEq/L 103 mEq/L (10/03/16 4:24 AM) (10/02/16 9:41 PM) CO2 [24-32 mEq/L] 25 mEq/L 27 mEq/L (10/03/16 4:24 AM) (10/02/16 9:41 PM) AGAP [10.0-20.0 mEq/L] 11.9 mEq/L 12.8 mEq/L (10/03/16 4:24 AM) (10/02/16 9:41 PM) CHEM PANEL Most recent to oldest [Reference Range]: 1 2 Creatinine Lvl [0.50-1.40 mg/dL] 0.63 mg/dL 0.73 mg/dL (10/03/16 4:24 AM) (10/02/16 9:41 PM) eGFR 131 mL/min/1.73m2 1 124 mL/min/1.73m2 2 *NA* *NA* (10/03/16 4:24 AM) (10/02/16 9:41 PM) BUN [7-22 mg/dL] 24 mg/dL 26 mg/dL *HI* *HI* (10/03/16 4:24 AM) (10/02/16 9:41 PM) B/C Ratio [6-25] 36 *HI* (10/02/16 9:41 PM) Glucose Lvl [70-99 mg/dL] 107 mg/dL 91 mg/dL *HI* (10/02/16 9:41 PM) (10/03/16 4:24 AM) Total Protein [6.4-8.4 g/dL] 7.6 g/dL (10/02/16 9:41 PM) Albumin Lvl [3.5-5.0 g/dL] 4.2 g/dL (10/02/16 9:41 PM) Globulin [2.7-4.2 g/dL] 3.4 g/dL (10/02/16 9:41 PM) A/G Ratio [0.7-1.6] 1.2 (10/02/16 9:41 PM) Calcium Lvl [8.5-10.5 mg/dL] 8.1 mg/dL 9.0 mg/dL *LOW* (10/02/16 9:41 PM) (10/03/16 4:24 AM) ALT [0-65 unit/L] 68 unit/L *HI* (10/02/16 9:41 PM) AST [0-37 unit/L] 56 unit/L *HI* (10/02/16 9:41 PM) Alk Phos [39-136 unit/L] 79 unit/L (10/02/16 9:41 PM) Bili Total [0.2-1.3 mg/dL] 0.3 mg/dL (10/02/16 9:41 PM) 1Result Comment: The eGFR is calculated [...] to oldest [Reference Range]: 1 2 U Amph Scr [Negative] Negative *NA* (10/02/16 9:41 PM) U Dania Scr [Negative] Negative *NA* (10/02/16 9:41 PM) U Benzodia Scr [Negative] Negative *NA* (10/02/16 9:41 PM) U Cocaine Scr [Negative] Negative *NA* (10/02/16 9:41 PM) U Opiate Scr [Negative] Negative *NA* (10/02/16 9:41 PM) U Phencyc Scr [Negative] Negative *NA* (10/02/16 9:41 PM) U Cannab Scr [Negative] Positive *ABN* (10/02/16 9:41 PM) UDS Note See Note (10/02/16 9:41 PM) TOXICOLOGY Most recent to oldest [Reference Range]: 1 2 Acetaminoph Lvl [10-20 ug/ml] <2 ug/ml *LOW* (10/02/16 9:41 PM) Salicylate Lvl [0.0-30.0 mg/dL] 2.9 mg/dL (10/02/16 9:41 PM) Etoh (%) <.003 % *NA* (10/02/16 9:41 PM) Ethanol Lvl <3 mg/dL *NA* (10/02/16 9:41 PM) URINE AND STOOL Most recent to oldest [Reference Range]: 1 2 UA Turbidity [Clear] Clear (10/02/16 9:41 PM) UA Color Ltyellow *NA* (10/02/16 9:41 PM) UA pH [5.0-8.0] 5.0 (10/02/16 9:41 PM) UA Spec Grav [<=1.030] 1.024 (10/02/16 9:41 PM) UA Glucose [Negative mg/dL] Negative mg/dL *NA* (10/02/16 9:41 PM) UA Blood [Negative] Moderate *ABN* (10/02/16 9:41 PM) UA Ketones [Negative mg/dL] Trace mg/dL *ABN* (10/02/16 9:41 PM) UA Protein [Negative mg/dL] Negative mg/dL (10/02/16 9:41 PM) UA Urobilinogen [0.1-1.0 mg/dL] <=1.0 mg/dL *NA* (10/02/16 9:41 PM) UA Bili [Negative] Negative *NA* (10/02/16 9:41 PM) UA Leuk Est [Negative] Negative (10/02/16 9:41 PM) UA Nitrite [Negative] Negative (10/02/16 9:41 PM) UA WBC [0-5 /HPF] 4 /HPF (10/02/16 9:41 PM) UA RBC [0-2 /HPF] 33 /HPF *HI* (10/02/16 9:41 PM) UA Sq Epi None Seen *NA* (10/02/16 9:41 PM) UA [place] Yeast [None Seen /HPF] Occasional /HPF *ABN* (10/02/16 9:41 PM) HEMATOLOGY Most recent to oldest [Reference Range]: 1 2 WBC [3.7-10.4 K/CMM] 9.9 K/CMM 15.0 K/CMM (10/03/16 4:24 AM) *HI* (10/02/16 9:41 PM) RBC [4.70-6.10 M/CMM] 4.28 M/CMM 4.46 M/CMM *LOW* *LOW* (10/03/16 4:24 AM) (10/02/16 9:41 PM) Hgb [14.0-18.0 g/dL] 13.1 g/dL 13.3 g/dL *LOW* *LOW* (10/03/16 4:24 AM) (10/02/16 9:41 PM) Hct [42.0-54.0 %] 37.6 % 39.5 % *LOW* *LOW* (10/03/16 4:24 AM) (10/02/16 9:41 PM) MCV [80.0-94.0 fL] 88.0 fL 88.6 fL (10/03/16 4:24 AM) (10/02/16 9:41 PM) MCH [27.0-31.0 pg] 30.7 pg 29.8 pg (10/03/16 4:24 AM) (10/02/16 9:41 PM) MCHC [32.0-36.0 g/dL] 34.9 g/dL 33.7 g/dL (10/03/16 4:24 AM) (10/02/16 9:41 PM) RDW [11.5-14.5 %] 14.5 % 14.6 % (10/03/16 4:24 AM) *HI* (10/02/16 9:41 PM) Platelet [133-450 K/CMM] 207 K/CMM 233 K/CMM (10/03/16 4:24 AM) (10/02/16 9:41 PM) MPV [7.4-10.4 fL] 7.3 fL 7.9 fL *LOW* (10/02/16 9:41 PM) (10/03/16 4:24 AM) Segs [45.0-75.0 %] 71.7 % 83.8 % (10/03/16 4:24 AM) *HI* (10/02/16 9:41 PM) Lymphocytes [20.0-40.0 %] 21.4 % 9.4 % (10/03/16 4:24 AM) *LOW* (10/02/16 9:41 PM) Monocytes [2.0-12.0 %] 5.3 % 6.1 % (10/03/16 4:24 AM) (10/02/16 9:41 PM) Eosinophils [0.0-4.0 %] 1.0 % 0.2 % (10/03/16 4:24 AM) (10/02/16 9:41 PM) Basophils [0.0-1.0 %] 0.6 % 0.5 % (10/03/16 4:24 AM) (10/02/16 9:41 PM) Segs-Bands # [1.5-8.1 K/CMM] 7.1 K/CMM 12.6 K/CMM (10/03/16 4:24 AM) *HI* (10/02/16 9:41 PM) Lymphocytes # [1.0-5.5 K/CMM] 2.1 K/CMM 1.4 K/CMM (10/03/16 4:24 AM) (10/02/16 9:41 PM) Monocytes # [0.0-0.8 K/CMM] 0.5 K/CMM 0.9 K/CMM (10/03/16 4:24 AM) *HI* (10/02/16 9:41 PM) Eosinophils # [0.0-0.5 K/CMM] 0.1 K/CMM (10/03/16 4:24 AM) Basophils # [0.0-0.2 K/CMM] 0.1 K/CMM 0.1 K/CMM (10/03/16 4:24 AM) (10/02/16 9:41 PM) Immunizations Given and Recorded Vaccine Date Status Refusal Reason influenza virus vaccine, inactivated 08/09/14 Given Not Given Vaccine Date Status Refusal Reason influenza virus vaccine, inactivated 08/07/14 Not Given Parent Or Guardian Refuses Procedures No data available for this section Social History Social History Type Response Substance Abuse Use: Current. Type: Amphetamines. Recreational Drug Route: Inhaled, Intravenous. Ready to change: No. Household substance abuse concerns: No. Alcohol Current, Type Beer, Liquor. Frequency: Daily. Smoking Status Current every day smoker; Type: Cigarettes; Started at age: 9.0 ; Previous treatment: Counseling; Ready to change: No; Concerns about tobacco use in household: No; Lives with someone who smokes; Cigarette Smoking Last 365 Days Yes; Reg Smoking Cessation Counseling Yes Assessment and Plan No data available for this section
--- OUTSIDE RECORDS SUMMARY | 2018-08-20 11:08 | XMS REPORT | Summary of Care ---
:1985 Author Organization [facility] Address [id number] [place] [address]- Encounter HQ Cortez_dylan(FIN) [id number] Date(s): 08/21/17 - 08/22/[address] [phone] Discharge Disposition: Other Healthcare Facility Attending Physician: Miguelito Wright MD Vital Signs Most recent to oldest [Reference 1 2 3 Range]: Height 167.64 cm (08/21/17 6:27 PM) Temperature Oral [96.4-99.1 DegF] 98.7 DegF 98 DegF 98 DegF (08/22/17 12:00 PM) (08/22/17 4:04 AM) (08/22/17 1:00 AM) Blood Pressure [90-140/60-90 122/70 mmHg 116/70 mmHg 121/74 mmHg mmHg] (08/22/17 12:00 PM) (08/22/17 7:35 AM) (08/22/17 4:04 AM) Respiratory Rate [14-20 BRMIN] 17 BRMIN 18 BRMIN 18 BRMIN (08/22/17 12:00 PM) (08/22/17 7:35 AM) (08/22/17 4:04 AM) Peripheral Pulse Rate [60-100 63 bpm 61 bpm 60 bpm bpm] (08/22/17 12:00 PM) (08/22/17 7:35 AM) (08/22/17 4:04 AM) Weight 75 kg (08/21/17 6:27 PM) Body Mass Index 26.69 m2 (08/21/17 6:27 PM) Problem List Condition Effective Dates Status Health Status Informant Adult ADHD(Confirmed) Active Anxiety(Confirmed) Active Bipolar(Confirmed) Active Depression(Confirmed) Active Schizoaffective disorder(Confirmed) Active Seizure disorder(Confirmed) Active Allergies, Adverse Reactions, Alerts Substance Reaction Severity Status NKDA Active Medications No data available for this section Results ELECTROLYTES Most recent to oldest [Reference Range]: 1 Sodium Lvl [135-145 mEq/L] 142 mEq/L (08/21/17 7:33 PM) Potassium Lvl [3.5-5.1 mEq/L] 3.5 mEq/L (08/21/17 7:33 PM) Chloride Lvl [95-109 mEq/L] 106 mEq/L (08/21/17 7:33 PM) CO2 [24-32 mEq/L] 28 mEq/L (08/21/17 7:33 PM) AGAP [10.0-20.0 mEq/L] 11.5 mEq/L (08/21/17 7:33 PM) CHEM PANEL Most recent to oldest [Reference Range]: 1 Creatinine Lvl [0.50-1.40 mg/dL] 0.67 mg/dL (08/21/17 7:33 PM) eGFR 128 mL/min/1.73m2 1 *NA* (08/21/17 7:33 PM) BUN [7-22 mg/dL] 10 mg/dL (08/21/17 7:33 PM) B/C Ratio [6-25] 15 (08/21/17 7:33 PM) Glucose Lvl [70-99 mg/dL] 81 mg/dL (08/21/17 7:33 PM) Total Protein [6.4-8.4 g/dL] 7.1 g/dL (08/21/17 7:33 PM) Albumin Lvl [3.5-5.0 g/dL] 3.6 g/dL (08/21/17 7:33 PM) Globulin [2.7-4.2 g/dL] 3.5 g/dL (08/21/17 7:33 PM) A/G Ratio [0.7-1.6] 1.0 (08/21/17 7:33 PM) Calcium Lvl [8.5-10.5 mg/dL] 8.6 mg/dL (08/21/17 7:33 PM) ALT [0-65 unit/L] 26 unit/L (08/21/17 7:33 PM) AST [0-37 unit/L] 14 unit/L (08/21/17 7:33 PM) Alk Phos [39-136 unit/L] 80 unit/L (08/21/17 7:33 PM) Bili Total [0.2-1.3 mg/dL] 0.2 mg/dL (08/21/17 7:33 PM) 1Result Comment: The eGFR is calculated using the CKD-EPI formula. In most young , healthy individualsthe eGFR will be >90 mL/min/1.73m2. The eGFR declines with age. An eGFR of 60-89 may be normal insome populations, particularly the elderly, for whom the [...] eGFR should be multiplied by the estimated BMI.CARDIAC ENZYMES Most recent to oldest [Reference Range]: 1 Total CK [12-191 unit/L] 100 unit/L (08/21/17 7:33 PM) CK MB [0.5-3.6 ng/mL] 1.1 ng/mL (08/21/17 7:33 PM) CK MB Index [0.0-2.5] 1.1 (08/21/17 7:33 PM) Troponin-I [0.00-0.40 ng/mL] <0.02 ng/mL (08/21/17 7:33 PM) DRUG SCREEN Most recent to oldest [Reference Range]: 1 U Amph Scr [Negative] Positive *ABN* (08/21/17 7:34 PM) U Dania Scr [Negative] Negative *NA* (08/21/17 7:34 PM) U Benzodia Scr [Negative] Negative *NA* (08/21/17 7:34 PM) U Cocaine Scr [Negative] Negative *NA* (08/21/17 7:34 PM) U Opiate Scr [Negative] Negative *NA* (08/21/17 7:34 PM) U Phencyc Scr [Negative] Negative *NA* (08/21/17 7:34 PM) U Cannab Scr [Negative] Positive *ABN* (08/21/17 7:34 PM) UDS Note See Note (08/21/17 7:34 PM) TOXICOLOGY Most recent to oldest [Reference Range]: 1 Acetaminoph Lvl [10-20 ug/ml] <2 ug/ml *NA* (08/21/17 7:33 PM) Salicylate Lvl [0.0-30.0 mg/dL] 2.3 mg/dL (08/21/17 7:33 PM) Etoh (%) <.003 % *NA* (08/21/17 7:33 PM) Ethanol Lvl <3 mg/dL *NA* (08/21/17 7:33 PM) HEMATOLOGY Most recent to oldest [Reference Range]: 1 WBC [3.7-10.4 K/CMM] 5.7 K/CMM (08/21/17 7:33 PM) RBC [4.70-6.10 M/CMM] 5.01 M/CMM (08/21/17 7:33 PM) Hgb [14.0-18.0 g/dL] 15.4 g/dL (08/21/17 7:33 PM) Hct [42.0-54.0 %] 44.5 % (08/21/17 7:33 PM) MCV [80.0-94.0 fL] 88.9 fL (08/21/17 7:33 PM) MCH [27.0-31.0 pg] 30.8 pg (08/21/17 7:33 PM) MCHC [32.0-36.0 g/dL] 34.7 g/dL (08/21/17 7:33 PM) RDW [11.5-14.5 %] 12.3 % (08/21/17 7:33 PM) Platelet [133-450 K/CMM] 236 K/CMM (08/21/17 7:33 PM) MPV [7.4-10.4 fL] 7.9 fL (08/21/17 7:33 PM) Segs [45.0-75.0 %] 59.1 % (08/21/17 7:33 PM) Lymphocytes [20.0-40.0 %] 30.0 % (08/21/17 7:33 PM) Monocytes [2.0-12.0 %] 8.2 % (08/21/17 7:33 PM) Eosinophils [0.0-4.0 %] 2.1 % (08/21/17 7:33 PM) Basophils [0.0-1.0 %] 0.6 % (08/21/17 7:33 PM) Segs-Bands # [1.5-8.1 K/CMM] 3.4 K/CMM (08/21/17 7:33 PM) Lymphocytes # [1.0-5.5 K/CMM] 1.7 K/CMM (08/21/17 7:33 PM) Monocytes # [0.0-0.8 K/CMM] 0.5 K/CMM (08/21/17 7:33 PM) Eosinophils # [0.0-0.5 K/CMM] 0.1 K/CMM (08/21/17 7:33 PM) Immunizations Given and Recorded Vaccine Date [...] Status Current every day smoker; Type: Cigarettes; Previous treatment: Counseling; Ready to change: No; Concerns about tobacco use in household: No; Lives with someone who smokes; Cigarette Smoking Last 365 Days Yes; Reg Smoking Cessation Counseling Yes; Started at age: 9.0; Assessment and Plan No data available for this section
--- OUTSIDE RECORDS SUMMARY | 2018-08-20 11:09 | XMS REPORT ---
:1985 [facility] [address] [place] [address] Care Team Providers Name Role Phone UNKNOWN, REFFERING Primary Care Provider Unavailable IGOR CORNELIUS Unavailable Unavailable Payers Payer Name Policy Type Policy Number Effective Date Expiration Date Problems This patient has no known problems. Allergies, Adverse Reactions, Alerts Allergy Allergy Status Severity Reaction(s) Onset Inactive Treating Comments Name Type Date Date Clinician No Known DA Active U 2018-07 Allergies - 00:00:0 0 No Known DA Active U 2017-10 Allergies - 00:00:0 0 Medications This patient has no known medications. Encounters Start End Encounter Admission Attending Care Care Encounter Date/Time Date/Time Type Type Clinicians Facility Department ID 2017-02-14 2017-02-14 Outpatient [facility] [id number] 00:01:00 00:01:00 2017-02-11 2017-02-11 Outpatient [facility] [id number] 10:45:00 10:45:00 Results Test Description Test Time Test Comments Text Results Atomic Results Result Comments Glycosylated Hemoglobin 2017-02-03 08:24:00 Test Item Value Reference Range Comments HBA1c (test code=HBA1C) 4.9 % 4.8-5.9 RPR, [id number] 10:27:00 Test Item Value Reference Range Comments RPR (test code=RPR) Non-Reactive Non-Reactive Thyroid Stimulating Hormone (TSH)2017-02-02 08:17:00 Test Item Value Reference Range Comments TSH (test code=TSH) 3.00 mIU/mL 0.270-4.200 Lipid [id number] 07:55:00 Test Item Value Reference Range Comments Cholesterol (test 155 mg/dL 0-200 code=CHOL) Triglycerides (test 70 mg/dL 9-200 code=TRIG) HDL (test code=HDL) 44 mg/dL 40-60 Chol/HDL (test 3.5 Ratio 0.0-5.0 code=CHOLPHDL) LDL, Calculated (test 97 0-130 (NOTE)RISK OF HEART code=LDLC) DISEASEPublished by Mongol[place] Heart AssociationAnalyte Optimal Boderline Increased RiskCHOL <200 200-239 >240TRIG <150 150-199 >200HDL Male: >60 <40HDL Female: >60 <50LDL <100 130-159 >160LDL NEAR OPTIMAL IS 100-129 VLDL (test code=VLDL) 14 mg/dL 5-40 LDL/HDL (test code=LDLPHDL) 2 Comprehensive Metabolic [id number] 18:26:00 Test Item Value Reference Range Comments Sodium (test code=NA) 140 mmol/L 135-145 Potassium (test code=K) 3.7 mmol/L 3.5-5.1 Chloride (test code=CL) 104 mmol/L 98-105 Carbon Dioxide (test 25 mmol/L 22-29 code=CO2) Glucose (test code=GLU) 141 mg/dL 70-115 Blood Urea Nitrogen 14 mg/dL 6-20 (test code=BUN) Creatinine (test 0.9 mg/dL 0.7-1.2 code=CREAT) Calcium (test code=CA) 10.0 mg/dL 8.3-10.5 Prot Total (test 7.1 g/dL 6.4-8.3 code=TP) Albumin (test code=ALB) 4.6 g/dL 3.5-5.2 A/G Ratio (test 1.8 Ratio code=AGRATIO) Globulin (test 2.5 2.9-3.1 code=GLOB) Bili Total (test 0.3 mg/dL 0.1-0.9 code=TBIL) Alk Phos (test 87 U/L 40-129 code=APHOS) AST (test code=AST) 17 U/L 1-40 ALT (test code=ALT) 17 U/L 1-41 BUN/Creatinine Ratio 15.6 (test code=BCRATIO) Anion Gap (test 11 mmol/L 7-16 code=AGAP) Estimated GFR (test >60 mL/min/1.73m2 eGFR (estimated Glomerular code=GFR) Filtration Rate) is an estimated value,calculated from the patient's serum creatinine using the MDRD equation.It is NOT the patient's actual GFR. The eGFR provides a more clinicallyuseful measure of kidney disease than serum creatinine alone.This calculation takes sex and race into account, if the informationis provided. If the race is not provided, and the patient isAfrican-Mongolian, multiply by 1.212. If sex is not provided, and thepatient is female, multiply by 0.742. Results for patients <18 years ofage have not been validated by the MDRD study and should be interpretedwith caution.eGFR Result Interpretation:eGFR > or=60 is in the Normal RangeeGFR < 60 may mean kidney diseaseeGFR < 15 may mean kidney failureRanges recommended by the National Kidney Foundation,http://nkdep.nih .gov [id number] 18:17:00 Test Item Value Reference Range Comments Amphetamine (test code=AMPH) POSITIVE Negative For diagnostic purposes only, positive results should always be assessedin conjunctionwith the patient's medical history,clinical examination and otherfindings.To fulfill legal requirements, a more specific alternate chemical methodmust be used inorder to obtain a Confirmed analytical result. GC/MS is the preferred confirmatory method. Barbiturates (test code=DEBBIE) Negative Negative Benzodiazepine (test Negative Negative code=NICOLLE) Cocaine (test code=COCA) Negative Negative Methadone (test code=MTHD) Negative Negative Opiates (test code=OPIA) Negative Negative PCP (test code=PCP) Negative Negative Propoxyphene (test Negative Negative code=PROPOX) THC (test code=THC) POSITIVE Negative Urinalysis [id number] 18:10:00 Test Item Value Reference Range Comments Color (test code=COLOR) Yellow Yellow,Straw,Pl yellow Clarity (test code=CLAR) Clear Clear Specific [place] (test 1.025 1.001-1.035 code=SPGR) pH (test code=PH) 6.5 5.0-9.0 Ketone (test code=KET) Negative mg/dL Negative Glucose (test code=GLUCUR) Negative mg/dL Negative Protein (test code=PROT) Negative mg/dL Negative Bilirubin (test code=BILI) See IctoTest mg/dL Negative Occult Blood (test code=UDOB) Negative Negative Urobilinogen (test code=UROB) 1.0 mg/dL 0.2-1.0 Nitrite (test code=NIT) Negative Negative Leuk Esterase (test code=LEUK) Negative Negative Ictotest (test code=ICTOTEST) Confirmed Negative Negative,Confirmed Negative Micros Exam (test code=MEXAM) Indicated Epithelial Cells (test 3-5 /LPF 0-30 code=EPI) WBC, Urine (test code=UWBC) 0-5 /HPF 0-5 RBC, Urine (test code=URBC) None Seen /HPF 0-5 Mucous, Urine (test code=UMUC) Few /HPF Bacteria (test code=BACT) None /HPF CBC with [id number] 18:07:00 Test Item Value Reference Range Comments WBC (test code=WBC) 6.0 K/cumm 4.4-10.5 RBC (test code=RBC) 4.43 M/cumm 4.10-5.70 Hemoglobin (test code=HGB) 13.5 gm/dL 13.4-17.4 Hematocrit (test code=HCT) 39.6 % 38.7-52.0 MCV (test code=MCV) 89.5 fL 80-100 MCH (test code=MCH) 30.5 pg 27.0-32.5 MCHC (test code=MCHC) 34.1 g/dL 32.0-37.5 RDW (test code=RDW) 14.5 % 11.5-14.5 Platelet Count (test code=PLTCT) 201 K/cumm 140-440 MPV (test code=MPV) 7.9 fL Diff Method (test code=DIFFM) Auto Neutrophil (test code=NEUT) 67.0 % 36-70 Lymphocyte (test code=LYMPH) 26.0 % 12-44 Monocyte (test code=MONO) 4.2 % 0-11 Eosinophil (test code=EOS) 2.3 % 0-7 Basophil (test code=BASO) 0.5 % 0-2 Neutro Abs (test code=ANEUT) 4.0 K/cumm 1.6-7.4 Lymph Abs (test code=ALYMPH) 1.6 K/cumm 0.5-4.6 [place] Abs (test code=AMONO) 0.3 K/cumm 0.0-1.2 Eos Abs (test code=AEOS) 0.14 K/cumm 0.00-0.74 Baso Abs (test code=ABASO) 0.0 K/cumm 0.00-0.21
[2018-08-20 11:51] LABS: Barbiturates NEGATIVE (NEGATIVE); Benzodiazepines NEGATIVE (NEGATIVE); Cocaine NEGATIVE (NEGATIVE); METHAMPHETAM POSITIVE (NEGATIVE); Methadone NEGATIVE (NEGATIVE); Opiates NEGATIVE (NEGATIVE); Phencyclidine NEGATIVE (NEGATIVE); THC Cannibis POSITIVE (NEGATIVE)
[2018-08-20 12:04] LABS: Absolute Lymphocytes (CBC) 1.2 K/uL (0.7-4.9); Absolute Monocytes 0.4 K/uL (0.1-1.3); Basophils % 0.5 % (0-1.3); Hematocrit 43.3 % (39.6-49.0); Lymphocytes % 20.6 % (15.3-44.8); MPV 7.8 fL (7.6-11.3); Monocytes % 6.9 % (3.3-12.3); RBC Red Blood Cell Count 4.84 M/uL (4.33-5.43)
[2018-08-20 12:21] LABS: Protime INR 1.03
[2018-08-20 12:29] LABS: ALT/SGPT 35 U/L (12-78); AST/SGOT 15 U/L (15-37); Albumin 3.9 g/dL (3.4-5.0); Alkaline Phosphatase 94 U/L (45-117); BUN Blood Urea Nitrogen 14 mg/dL (7-18); Bicarbonate 29 mmol/L (21-32); Bilirubin Direct < 0.1 mg/dL (0-0.2); Bilirubin Total 0.3 mg/dL (0.2-1.0); Glucose Level 84 mg/dL (74-106); Potassium 4.6 mmol/L (3.5-5.1); Protein, Total 7.3 g/dL (6.4-8.2); Sodium Level 136 mmol/L (136-145)
[2018-08-20 12:31] LABS: Urine Blood NEGATIVE (NEG); Urine Glucose NEGATIVE (NEG); Urine Protein NEGATIVE (NEG); Urine pH 5.5 (5.0-7.0)
--- NOTE | 2018-08-20 14:32 | ER ---
Nurse's Notes [facility] Name: Andres Marc Age: 32 yrs Sex: Male : 1985 Arrival Date: 08/20/2018 Time: 10:56 Bed 18 Private MD: None, None Diagnosis: Suicidal ideations;Major depressive disorder, recurrent Presentation: 08/20 11:02 Presenting complaint: Patient states: i feel i want to kill myself since a week ago, my hj plan is to hang myself; hx of SI; im staying with a friends garage; radha been using met and marijuana, last use was Thursday;. Transition of care: patient was not received from another setting of care. Onset of symptoms was August 20, 2018. Risk Assessment: Do you want to hurt yourself or someone else? Patient reports desire/thoughts of hurting themselves or someone else. Provider notified. Initial Sepsis Screen: Does the patient meet any 2 criteria? No. Patient's initial sepsis screen is negative. Does the patient have a suspected source of infection? No. Patient's initial sepsis screen is negative. Care prior to arrival: None. 11:02 Method Of Arrival: Ambulatory 11:02 Acuity: MOOSE 2 hj Triage Assessment: 11:06 General: Appears in no apparent distress. uncomfortable, Behavior is cooperative, hj appropriate for age, anxious. Pain: Denies pain. Historical: - Allergies: 11:05 No Known Allergies; hj - Home Meds: 11:05 clonazepam 2 mg Oral tab 1 tab 3 times per day [Active]; Restoril 30 mg Oral cap 1 cap hj once daily [Active]; Trilafon Oral 4 mg twice a day [Active]; Tegretol Oral [Active]; - PMHx: 11:05 abscess; ADD/ADHD; psychoaffective disorder; Schizophrenia; staph infections; hj - PSHx: 11:05 Ear Tubes; removal of staph from chest cavity; hj - Immunization history:: Adult Immunizations up to date. - Social history:: Smoking status: Patient uses tobacco products, Patient uses street drugs, marijuana, Methamphetamine (Meth). - Ebola Screening: : Patient negative for fever greater than or equal to 101.5 degrees Fahrenheit, and additional compatible Ebola Virus Disease symptoms Patient denies exposure to infectious person Patient denies travel to an Ebola-affected area in the 21 days before illness onset. Screenin:06 Abuse screen: Denies threats or abuse. Denies injuries from another. Nutritional hj screening: No deficits noted. Tuberculosis screening: No symptoms or risk factors identified. Fall Risk None identified. Assessment: 11:40 General: Appears in no apparent distress. distressed, Behavior is calm, cooperative. em Pain: Denies pain. Neuro: Level of Consciousness is awake, alert, obeys commands, Oriented to person, place, time, situation. Cardiovascular: Patient's skin is warm and dry. Respiratory: Airway is patent Respiratory effort is even, unlabored, Respiratory pattern is regular, symmetrical. GI: Abdomen is flat. Derm: Skin is intact, is healthy with good turgor, Skin is pink, warm \T\ dry. Musculoskeletal: Range of motion: intact in all extremities. 12:00 Reassessment: Dr. Hawthorne at bedside. em 12:15 Reassessment: Patient appears in no apparent distress at this time. Patient and/or em family updated on plan of care and expected duration. Pain level reassessed. Patient is alert, oriented x 3, equal unlabored respirations, skin warm/dry/pink. 14:17 Reassessment: Patient appears in no apparent distress at this time. Patient and/or em family updated on plan of care and expected duration. Pain level reassessed. Patient is alert, oriented x 3, equal unlabored respirations, skin warm/dry/pink. 15:14 Reassessment: Patient appears in no apparent distress at this time. Patient and/or em family updated on plan of care and expected duration. Pain level reassessed. Patient is alert, oriented x 3, equal unlabored respirations, skin warm/dry/pink. report given to Silverio at [facility], pending to 16:15 Reassessment: Patient appears in no apparent distress at this time. Patient and/or em family updated on plan of care and expected duration. Pain level reassessed. Patient is alert, oriented x 3, equal unlabored respirations, skin warm/dry/pink. Patient denies pain at this time. 17:01 Reassessment: Patient appears in no apparent distress at this time. Patient and/or em family updated on plan of care and expected duration. Pain level reassessed. Patient is alert, oriented x 3, equal unlabored respirations, skin warm/dry/pink. report given to EMS. Psych: 11:40 Subjective: Patient's mood is sad. Objective: Patient is cooperative, Speech is normal, em Affect is appropriate. Interventions: Removed personal items and placed in bag. Patient placed in hospital gown. Urine collected and sent for urine drug test. Suicide Risk Assessment: Sad Person Scale: Sex of patient: Male: Score 1 point. Age of patient: Score 1 point if patient 15-34. Depression: Score 1 point if signs of depression are present. Previous Attempt: Score 1 point if patient has previously attempted suicide. Substance Abuse: Score 1 point if patient abuses alcohol or drugs. Rational Thinking: Score 0 point if patient has rational thinking. Social Support: Score 1 point if social support is lacking and/or unavailable. Organized Plan: Score 1 point if patient had a plan in place. Relationship: Score 1 point if patient is , , , or for a single male Chronic Sickness: Score 0 point if patient does not have a chronic illness, debilitating, or severe disorder. TOTAL POINTS: If total points are 7-10, the proposed clinical action is to hospitalize or commit. Implement suicide precautions. Safety Checks: Personal items have been removed. Door is open. No visitors are present at this time. Patient uses marijuana Patient uses methamphetamines. Commitment: Patient will be a voluntary commitment. Vital Signs: 11:06 BP 118 / 76; Pulse 73; Resp 18; Temp 97.7(O); Pulse Ox 100% on R/A; Weight 81.65 kg; Height 6 ft. 1 in. (185.42 cm); Pain 0/10; 11:42 BP 111 / 78; Pulse 76; Resp 17; Temp 98.0(O); Pulse Ox 100% on R/A; mh5 15:20 BP 113 / 65; Pulse 65; Resp 18; Pulse Ox 99% on R/A; Pain 0/10; em 11:06 Body Mass Index 23.75 (81.65 kg, 185.42 cm) ED Course: 10:56 Patient arrived in ED. ag5 10:57 None, None is Private Physician. ag5 11:04 Triage completed. hj 11:06 Carmelo Hawthorne MD is Attending Physician. kdr 11:06 Arm band placed on right wrist. hj 11:06 Patient has correct armband on for positive identification. Placed in gown. Bed in low hj position. Call light in reach. Side rails up X 1. 11:15 Safety checks: Items removed: yes. Door open/sign placed on door: yes. Family/friend mh5 present: no. Sitter present: Yes. 11:22 EKG done, by diamond powder technician. reviewed by Carmelo Hawthorne MD. [facility] 11:30 Wander Eugene LVN is Primary Nurse. 11:30 Safety checks: Items removed: yes. Door open/sign placed on door: yes. Family/friend mh5 present: no. Sitter present: Yes. 11:43 Urine Dipstick--Ancillary (enter results) Sent. 5 11:43 Urine Drug Screen Sent. [facility] 11:43 Missed attempt(s): 20 gauge forearm. antecubital area. [facility] 11:45 Safety checks: Items removed: yes. Door open/sign placed on door: yes. Family/friend mh5 present: no. Sitter present: Yes. 11:50 Initial lab(s) drawn, by tn, sent to lab. Inserted saline lock: 20 gauge in right em antecubital area, using aseptic technique. Blood collected. 12:00 Safety checks: Items removed: yes. Door open/sign placed on door: yes. Family/friend mh5 present: no. Sitter present: Yes. 12:10 Diet: Patient given a regular meal tray. [facility] 12:15 Safety checks: Items removed: yes. Safety checks: Door open/sign placed on door: yes. je1 Family/friend present: no. Sitter present: Yes. 12:30 Safety checks: Items removed: yes. Door open/sign placed on door: yes. Family/friend je1 present: no. Sitter present: Yes. 12:45 Safety checks: Items removed: yes. Door open/sign placed on door: yes. Family/friend je1 present: no. Sitter present: Yes. 13:00 Safety checks: Items removed: yes. Door open/sign placed on door: yes. Family/friend je1 present: no. Sitter present: Yes. 13:15 Safety checks: Items removed: yes. Door open/sign placed on door: yes. Family/friend je1 present: no. Sitter present: Yes. 13:30 Safety checks: Items removed: yes. Door open/sign placed on door: yes. Family/friend je1 present: no. Sitter present: Yes. 13:45 Safety checks: Items removed: yes. Door open/sign placed on door: yes. Family/friend je1 present: no. Sitter present: Yes. 14:00 Safety checks: Items removed: yes. Door open/sign placed on door: yes. Family/friend je1 present: no. Sitter present: Yes. 14:15 Safety checks: Items removed: yes. Door open/sign placed on door: yes. Family/friend je1 present: no. Sitter present: Yes. 14:30 Safety checks: Items removed: yes. Door open/sign placed on door: yes. Family/friend je1 present: no. Sitter present: Yes. 14:45 Safety checks: Items removed: yes. Door open/sign placed on door: yes. Family/friend je1 present: no. Sitter present: Yes. 15:00 Safety checks: Items removed: yes. Door open/sign placed on door: yes. Family/friend je1 present: no. Sitter present: Yes. 15:15 Safety checks: Items removed: yes. Door open/sign placed on door: yes. Family/friend je1 present: no. Sitter present: Yes. 15:30 Safety checks: Items removed: yes. Door open/sign placed on door: yes. Family/friend je1 present: no. Sitter present: Yes. 15:45 Safety checks: Items removed: yes. Door open/sign placed on door: yes. Family/friend je1 present: no. Sitter present: Yes. 16:00 Safety checks: Items removed: yes. Door open/sign placed on door: yes. Family/friend je1 present: no. Sitter present: Yes. 16:15 Safety checks: Items removed: yes. Door open/sign placed on door: yes. Family/friend je1 present: no. Sitter present: Yes. 16:30 Safety checks: Items removed: yes. Door open/sign placed on door: yes. Family/friend je1 present: no. Sitter present: Yes. 16:45 Safety checks: Items removed: yes. Door open/sign placed on door: yes. Family/friend je1 present: no. Sitter present: Yes. 17:02 No provider procedures requiring assistance completed. IV discontinued, intact, em bleeding controlled, No redness/swelling at site. Pressure dressing applied. Administered Medications: No medications were administered Outcome: 14:31 ER care complete, transfer ordered by . kdr 17:02 Transferred by ground EMS to other acute care facility, Transfer form completed. em 17:02 Condition: good 17:02 Instructed on the need for transfer, Demonstrated understanding of instructions. 17:03 Patient left the ED. em Signatures: Carmelo Hawthorne MD MD kdr Wander Eugene, SUPERVISOR MIXING SUPERVISOR MIXING em Lolis Ham, radiologic technologist EKG Tat1 Alonzo Giles RN RN Cass Kwok 5 Chela Crowley 5 Terrell Pedersen 1 Corrections: (The following items were deleted from the chart) 11:09 11:06 Pulse 73bpm; Resp 18bpm; Pulse Ox 100% RA; Temp 97.7F Oral; 81.65 kg; Height 6 hj ft. 1 in.; BMI: 23.7; Pain 0/10; hj
--- NOTE | 2018-08-20 14:33 | EDPHYS ---
Physician Documentation [facility] Name: Andres Marc Age: 32 yrs Sex: Male : 1985 Arrival Date: 08/20/2018 Time: 10:56 Bed 18 Private MD: None, None ED Physician Carmelo Hawthorne HPI: 08/20 14:27 This 32 yrs old Male presents to ER via Ambulatory with complaints of kdr Suicidal Ideation. 14:27 The patient presents to the emergency department with depression, suicide ideation, and kdr the patient has a plan, to hang oneself. Onset: The symptoms/episode began/occurred gradually, 2 week(s) ago. Past psychiatric history: Prior diagnosis: bipolar disorder, depression. Associated signs and symptoms: The patient has no apparent associated signs or symptoms. Severity of symptoms: At their worst the symptoms were moderate in the emergency department the symptoms are unchanged. The patient has experienced similar episodes in the past, chronically. The patient has been recently seen by a physician: The patient had been discharged from [facility] about 2 weeks ago. Historical: - Allergies: 11:05 No Known Allergies; hj - Home Meds: 11:05 clonazepam 2 mg Oral tab 1 tab 3 times per day [Active]; Restoril 30 mg Oral cap 1 cap hj once daily [Active]; Trilafon Oral 4 mg twice a day [Active]; Tegretol Oral [Active]; - PMHx: 11:05 abscess; ADD/ADHD; psychoaffective disorder; Schizophrenia; staph infections; hj - PSHx: 11:05 Ear Tubes; removal of staph from chest cavity; hj - Immunization history:: Adult Immunizations up to date. - Social history:: Smoking status: Patient uses tobacco products, Patient uses street drugs, marijuana, Methamphetamine (Meth). - Ebola Screening: : Patient negative for fever greater than or equal to 101.5 degrees Fahrenheit, and additional compatible Ebola Virus Disease symptoms Patient denies exposure to infectious person Patient denies travel to an Ebola-affected area in the 21 days before illness onset. ROS: 14:27 Constitutional: Negative for fever, chills, and weight loss, Eyes: Negative for injury, kdr pain, redness, and discharge, ENT: Negative for injury, pain, and discharge, Neck: Negative for injury, pain, and swelling, Cardiovascular: Negative for chest pain, palpitations, and edema, Respiratory: Negative for shortness of breath, cough, wheezing, and pleuritic chest pain, Abdomen/GI: Negative for abdominal pain, nausea, vomiting, diarrhea, and constipation, Back: Negative for injury and pain, : Negative for injury, bleeding, discharge, and swelling, MS/Extremity: Negative for injury and deformity, Skin: Negative for injury, rash, and discoloration, Neuro: Negative for headache, weakness, numbness, tingling, and seizure activity. Allergy/Immunology: Negative for hives, rash, and allergies, Endocrine: Negative for neck swelling, polydipsia, polyuria, polyphagia, and marked weight changes, Hematologic/Lymphatic: Negative for swollen nodes, abnormal bleeding, and unusual bruising. 14:27 Psych: Positive for depression, suicide gesture, suicidal ideation. Exam: 14:27 Constitutional: This is a well developed, well nourished patient who is awake, alert, kdr and in no acute distress. Head/Face: Normocephalic, atraumatic. Eyes: Pupils equal round and reactive to light, extra-ocular motions intact. Lids and lashes normal. Conjunctiva and sclera are non-icteric and not injected. Cornea within normal limits. Periorbital areas with no swelling, redness, or edema. Neck: Trachea midline, no thyromegaly or masses palpated, and no cervical lymphadenopathy. Supple, full range of motion without nuchal rigidity, or vertebral point tenderness. No Meningismus. Chest/axilla: Normal chest wall appearance and motion. Nontender with no deformity. No lesions are appreciated. Cardiovascular: Regular rate and rhythm with a normal S1 and S2. No gallops, murmurs, or rubs. Normal PMI, no JVD. No pulse deficits. Respiratory: Lungs have equal breath sounds bilaterally, clear to auscultation and percussion. No rales, rhonchi or wheezes noted. No increased work of breathing, no retractions or nasal flaring. Abdomen/GI: Soft, non-tender, with normal bowel sounds. No distension or tympany. No guarding or rebound. No evidence of tenderness throughout. Back: No spinal tenderness. No costovertebral tenderness. Full range of motion. Skin: Warm, dry with normal turgor. Normal color with no rashes, no lesions, and no evidence of cellulitis. MS/ Extremity: Pulses equal, no cyanosis. Neurovascular intact. Full, normal range of motion. Neuro: Awake and alert, GCS 15, oriented to person, place, time, and situation. Cranial nerves II-XII grossly intact. Motor strength 5/5 in all extremities. Sensory grossly intact. Cerebellar exam normal. Normal gait. 14:27 Psych: Behavior/mood is pleasant, cooperative, suicidal, depressed, Affect is calm, flat, Oriented to person, place, time, Patient having thoughts of suicide. Plan for suicide is He is living in a friends garage and has been thinking about hanging himself with a power cord Vital Signs: 11:06 BP 118 / 76; Pulse 73; Resp 18; Temp 97.7(O); Pulse Ox 100% on R/A; Weight 81.65 kg; hj Height 6 ft. 1 in. (185.42 cm); Pain 0/10; 11:42 BP 111 / 78; Pulse 76; Resp 17; Temp 98.0(O); Pulse Ox 100% on R/A; mh5 15:20 BP 113 / 65; Pulse 65; Resp 18; Pulse Ox 99% on R/A; Pain 0/10; em 11:06 Body Mass Index 23.75 (81.65 kg, 185.42 cm) MDM: 14:31 Patient medically screened. [facility] 14:32 Data reviewed: vital signs, nurses notes. Counseling: I had a detailed discussion with kdr the patient and/or guardian regarding: the historical points, exam findings, and any diagnostic results supporting the discharge/admit diagnosis, lab results, the need to transfer to another facility. 08/20 11:18 Order name: Acetaminophen; Complete Time: 12:55 [facility] 08/20 11:18 Order name: Basic Metabolic Panel; Complete Time: 12:55 [facility] 08/20 11:18 Order name: CBC with Diff; Complete Time: 12:29 [facility] 08/20 11:18 Order name: ETOH Level; Complete Time: 12:55 [facility] 08/20 11:18 Order name: Hepatic Function; Complete Time: 12:55 [facility] 08/20 11:18 Order name: PT-INR; Complete Time: 12:29 [facility] 08/20 11:18 Order name: Ptt, Activated; Complete Time: 12:29 [facility] 08/20 11:18 Order name: Salicylate; Complete Time: 15:12 kdr 08/20 11:18 Order name: Urine Drug Screen; Complete Time: 12:29 kdr 08/20 11:18 Order name: EKG; Complete Time: 11:19 kdr 08/20 11:18 Order name: EKG - Nurse/Tech; Complete Time: 12:51 kdr 08/20 11:23 Order name: Urine Dipstick--Ancillary (enter results); Complete Time: 12:55 ag 08/20 11:46 Order name: Diet Regular; Complete Time: 11:47 mh5 08/20 12:29 Order name: Tegretol Level; Complete Time: 15:12 kdr 08/20 11:18 Order name: IV Saline Lock; Complete Time: 12:52 kdr 08/20 11:18 Order name: Labs collected and sent; Complete Time: 12:52 kdr 08/20 11:18 Order name: Urine Dipstick-Ancillary (obtain specimen); Complete Time: 12:52 kdr Administered Medications: No medications were administered Disposition: 08/20/18 14:31 Transfer ordered to Psych Facility. Diagnosis are Suicidal ideations, Major depressive disorder, recurrent. - Reason for transfer: Higher level of care. - Accepting physician is Psych . - Condition is Fair. - Problem is an acute exacerbation. - Symptoms have improved. Signatures: Dispatcher [employer] Carmelo Calle MD MD kdr Wander Eugene, IDENTIFICATION TECHNICIAN IDENTIFICATION TECHNICIAN em Alonzo Giles RN RN hj Corrections: (The following items were deleted from the chart) 17:03 14:32 08/20/2018 14:31 Transfer ordered to Psych Facility. Diagnosis is Suicidal em ideations; Major depressive disorder, recurrent. Reason for transfer: Higher level of care. Accepting physician is Psych . Condition is Fair. Problem is an acute exacerbation. Symptoms have improved. kdr
--- NOTE | 2018-08-21 13:58 | EKG ---
Test Date: 2018-08-20 Test Time: 11:22:07 Piecer Up: RAMESH MEASUREMENT RESULTS: Intervals: Rate: 65 CA: 168 QRSD: 100 QT: 398 QTc: 413 Arnett: P: 65 CA: 168 QRS: 77 T: 74 INTERPRETIVE STATEMENTS: Normal sinus rhythm Normal ECG Compared to ECG 10/31/2015 16:13:29 No significant changes Electronically Signed On 08-21-18 13:54:32 [employer] by Jaden Slater
== END 2018-08-20 17:03 ==
LOC: ER 10:55
DX: F33.9 Major depressive disorder, recurrent, unspecified (principal); F20.9 Schizophrenia, unspecified; F90.9 Attention-deficit hyperactivity disorder, unspecified type; Z72.0 Tobacco use
CPT/HCPCS: 36415; 80048; 80076; 80156; 80307; 80320; 80329; 81003; 85025; 85610; 85730; 93005; 99285